=== PATIENT | male | born 1950 | race Caucasian/White ===

== ENCOUNTER → 2016-06-02 | Outpatient (CLI) | payer MEDICARE ==
[2014-03-31 04:50] VITALS: BP 147/94
--- NOTE | 2016-06-02 09:31 | KCIC ---
PROCEDURE: Right lower extremity venous Doppler ultrasound. HISTORY Right lower extremity pain, swelling, and cellulitis. COMPARISON None. TECHNIQUE Real-time grayscale, color flow, and Doppler spectral waveform analysis of the deep veins of the lower extremity/ies performed. FINDINGS All visualized vein segments demonstrate normal compressibility and augmentation and color flow. Color flow seen within calf veins. IMPRESSION No evidence of right lower extremity deep vein thrombosis. Electronically signed by: Parker Zapata MD (Jun 02, 2016 09:29:40)
== END | disposition home or self-care (01) ==
LOC: KCIC US 08:48
PROVIDERS: ATTEND Family Medicine
DX: M79.604 Pain in right leg (principal); M79.89 Other specified soft tissue disorders
CPT/HCPCS: 93971

== ENCOUNTER 2016-06-23 09:26 | Emergency (ER) | payer MEDICARE ==
[~2016-06-23] VITALS: Ht 185.4 cm; Wt 113.4 kg
[2016-06-23] MEDS ORDERED: MORPHINE SULFATE 4 MG/ML DISP.SYRIN. IV/SQ PRN (10:30)
[2016-06-23 10:35] LABS: BASO # 0.1 x10^3/uL (0.0-0.2); BASO % 1 % (0-3); EOS % 2 % (0-3); HEMATOCRIT 40.8 % (39.0-53.0); HEMOGLOBIN 13.5 g/dL (13.0-17.5); LYMPH # 2.4 x10^3/uL (1.0-4.8); LYMPH % 22 % (24-48); MEAN CORPUSCULAR HEMOGLOBIN 29 pg (25-35); MEAN CORPUSCULAR HGB CONC 33 g/dL (31-37); MEAN CORPUSCULAR VOLUME 89 fL (79-100); MONO % 9 % (0-9); NEUT % 66 % (31-73); PLATELET COUNT 268 x10^3/uL (140-400); RED BLOOD COUNT 4.59 x10^6/uL (4.30-5.70); RED CELL DISTRIBUTION WIDTH 15.5 % (11.5-14.5)
[2016-06-23 10:39] VITALS: BP 110/68
--- NOTE | 2016-06-23 10:41 | EKG ---
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 QRS(T) CONTOUR ABNORMALITY CONSISTENT WITH INFERIOR INFARCT PROBABLY OLD ST ABNORMALITY, POSSIBLE HIGH LATERAL SUBENDOCARDIAL INJURY Electronically Signed On 06-23-2016 20:00:30 CDT by Jeanette Myers
[2016-06-23 10:47] LABS: PROTHROMBIN TIME PATIENT 12.7 SEC (11.7-14.0)
--- NOTE | 2016-06-23 10:48 | PHYS DOC ---
Past Medical History Past Medical History: High Cholesterol, Heart Disease, Hypertension, [place] Past Surgical History: Angioplasty Additional Past Surgical Histo: CARDIAC STENT Additional Information: quit 2012 Alcohol Use: None Drug Use: None Adult General Chief Complaint Chief Complaint: LOWER EXTREMITY SWELLING [facility] HPI Patient is a 66 year old male who presents with right lower extremity swelling for 6 days. He has edema up to the level of the knee. He denies any injury to the leg. He has had intermittent swelling in the right leg over the last year, progressively worsening. He denies any fever, chest pain, or shortness of breath. He had an ultrasound performed at this facility on 06/02/16 that was negative for DVT. He saw his orthopedist, Dr. Johnson, one week ago. They aspirated fluid from the right hip and injected cortisone into the joint. His PCP is Dr. Dorcas Ojeda. Review of Systems Review of Systems Constitutional: Denies fever or chills. [] Respiratory: Denies cough or shortness of breath. [] Cardiovascular: Denies chest pain, palpitations. Reports RLE edema. GI: Denies abdominal pain, nausea, vomiting, bloody stools or diarrhea. [] : Denies dysuria, hematuria or urinary frequency. [] Musculoskeletal: Denies back pain or joint pain. Reports right leg pain. Integument: Denies rash or skin lesions. [] Neurologic: Denies headache, focal weakness or sensory changes. [] Endocrine: Denies polyuria or polydipsia. [] Psych: Denies anxiety or depression. [] All systems reviewed and negative unless otherwise stated in the HPI. Current Medications Current Medications Current Medications Medications (Trade) Dose Ordered Sig/Sandee Start Time Stop Time Status Last Admin Dose Admin Morphine Sulfate 4 mg PRN Q15MIN PRN 06/23/16 10:30 06/24/16 10:29 Allergies Allergies Allergies Coded Allergies Type Severity Reaction Last Updated Verified lisinopril Allergy Severe swelling 06/23/16 Yes shellfish derived Allergy Severe swelling 06/23/16 Yes strawberry Allergy Severe swelling 06/23/16 Yes tomato Allergy Severe swelling 06/23/16 Yes Physical Exam Physical Exam Constitutional: Well developed, well nourished, no acute distress, non-toxic appearance. [] HENT: Normocephalic, atraumatic, oropharynx moist. [] Eyes: PERRLA, EOMI, conjunctiva normal, no discharge. [] Neck: Normal range of motion, no tenderness, supple, no stridor. [] Cardiovascular: Heart rate regular rhythm, no murmur. [] Lungs & Thorax: Bilateral breath sounds clear to auscultation without wheezes, rales, or rhonchi. [] Abdomen: Bowel sounds normal, soft, no tenderness, no masses, no pulsatile masses. [] Skin: Warm, dry, no erythema, no rash. There is no erythema or warmth of the right lower extremity. Chronic venous stasis staining of the skin. Extremities: Right hip, knee, calf, ankle, and foot tenderness, ROM intact, 2+ pitting edema up to and including the knee. 2+ pedal pulses bilaterally. Less than 2 second capillary refill in the toes. Light touch sensation intact distally. Neurologic: Alert and oriented X 3, normal motor function, normal sensory function, no focal deficits noted. [] Psychologic: Affect normal, judgement normal, mood normal. [] Current Patient Data Vital Signs Vital Signs Date Time Temp Pulse Resp B/P Pulse Ox O2 Delivery O2 Flow Rate FiO2 06/23/16 09:39 98.5 71 20 108/64 99 Room Air 98.5 Lab Values Laboratory Tests Test 06/23/16 10:00 White Blood Count 11.0x10^3/uL (4.0-11.0) Red Blood Count 4.59x10^6/uL (4.30-5.70) Hemoglobin 13.5g/dL (13.0-17.5) Hematocrit 40.8% (39.0-53.0) Mean Corpuscular Volume 89fL (79-100) Mean Corpuscular Hemoglobin 29pg (25-35) Mean Corpuscular Hemoglobin Concent 33g/dL (31-37) Red Cell Distribution Width 15.5% (11.5-14.5) H Platelet Count 268x10^3/uL (140-400) Neutrophils (%) (Auto) 66% (31-73) Lymphocytes (%) (Auto) 22% (24-48) L Monocytes (%) (Auto) 9% (0-9) Eosinophils (%) (Auto) 2% (0-3) Basophils (%) (Auto) 1% (0-3) Neutrophils # (Auto) 7.3x10^3uL (1.8-7.7) Lymphocytes # (Auto) 2.4x10^3/uL (1.0-4.8) Monocytes # (Auto) 1.0x10^3/uL (0.0-1.1) Eosinophils # (Auto) 0.3x10^3/uL (0.0-0.7) Basophils # (Auto) 0.1x10^3/uL (0.0-0.2) Prothrombin Time 12.7SEC (11.7-14.0) Prothrombin Time INR 1.0 (0.8-1.1) Sodium Level 142mmol/L (136-145) Potassium Level 3.8mmol/L (3.5-5.1) Chloride Level 105mmol/L (98-107) Carbon Dioxide Level 28mmol/L (21-32) Anion Gap 9 (6-14) Blood Urea Nitrogen 24mg/dL (8-26) Creatinine 1.3mg/dL (0.7-1.3) Estimated GFR (Cockcroft-Gault) 55.1 Glucose Level 108mg/dL (70-99) H Calcium Level 8.8mg/dL (8.5-10.1) Magnesium Level 1.7mg/dL (1.8-2.4) L Total Bilirubin 0.3mg/dL (0.2-1.0) Direct Bilirubin 0.1mg/dL (0.0-0.2) Aspartate Amino Transferase (AST) 14U/L (15-37) L Alanine Aminotransferase (ALT) 37U/L (16-63) Alkaline Phosphatase 83U/L (46-116) Creatine Kinase 65U/L (39-308) Creatine Kinase MB (Mass) 1.9ng/mL (0.0-3.6) Creatine Kinase MB Relative Index 2.9% (0-4) Troponin I Quantitative < 0.017ng/mL (0.000-0.055) WZ-Goe-F-Type Natriuretic Peptide 362pg/mL (0-124) H Total Protein 6.4g/dL (6.4-8.2) Albumin 2.9g/dL (3.4-5.0) L Laboratory Tests 06/23/16 10:00 Laboratory Tests 06/23/16 10:00 EKG EKG EKG at 1034. Heart rate 67 bpm. Sinus rhythm with PVCs. There is no STEMI, as interpreted by Dr. Brandon. Radiology/Procedures Radiology/Procedures REASON: RLE edema PROCEDURE: VENOUS LOWER EXTREMITY RIGHT EXAM: Right lower extremity venous Doppler sonogram. HISTORY: Swelling. TECHNIQUE: Grayscale and color Doppler sonographic imaging of the right lower extremity veins with spectral waveform analysis was performed. COMPARISON: None. FINDINGS: There is normal color flow, normal compressibility and there are normal spectral waveforms within the right lower extremity veins. IMPRESSION: No Doppler evidence of right lower extremity venous thrombosis. REASON: RLE edema, X A FEW DAYS PROCEDURE: PORTABLE CHEST 1V Portable chest, 06/23/2016: History: Leg swelling Comparison is made to a study from 12/14/2015. The heart size and pulmonary vascularity are normal. There is calcific plaquing of aorta. There is a hazy opacity in the left base. A less prominent linear opacity was seen in this region on 12/14/2015. The lungs are otherwise clear. There is no evidence of pleural fluid. A coarse calcification is again noted adjacent to the coracoid process of the left scapula IMPRESSION: Mild left basilar atelectasis/infiltrate. There may be a component of scarring. Imaging follow-up is suggested to exclude an underlying neoplasm. Course & Med Decision Making Course & Med Decision Making Pertinent Labs and Imaging studies reviewed. (See chart for details) Patient presents with RLE edema for approximately one week with history of the same intermittently over the last year. He has been receiving cortisone injections as well as fluid aspiration from the right hip for arthritis. On exam , there is 2+ pitting edema of the right lower extremity. He is neurovascularly intact distally. X-ray does not show any vascular congestion in the lungs. Ultrasound does not show DVT. His BNP is mildly elevated. There are no other significant laboratory abnormalities. His swelling is likely due to a combination of factors, including mild CHF, venous stasis, and dependent edema from his hip. He is instructed to continue to take his hydrochlorothiazide. He is discharged home with prescription for hydrocodone for pain. He is instructed to wear compression stockings to help with the swelling. Return precautions were discussed. He verbalizes understanding and agrees with plan. Dragon Disclaimer Dragon Disclaimer This electronic medical record was generated, in whole or in part, using a voice recognition dictation system. Departure Departure Impression: Primary Impression: Lower extremity edema Disposition: 01 HOME, SELF-CARE Condition: STABLE Referrals: DORCAS OJEDA MD (PCP) Patient Instructions: Peripheral Edema Additional Instructions: Your ultrasound did not show any blood clots. You have a mild heart failure, which is likely contributing to the swelling. Please continue to take your hydrochlorothiazide, which is a diuretic, or water pill. Please wear compression stockings to help move the fluid out of the lower leg. Please take the prescribed pain medication as directed. Do not drive or operate heavy machinery while taking pain medication. Please follow-up with your primary care doctor within the next 2-3 days, sooner if concerns. Return to the emergency department if you have any new or concerning symptoms. Scripts Hydrocodone/Apap 5-325 ([place] 5-325 Tablet)1 Each Tablet1 Tab PO PRN Q6HRS PRN PAIN #20 TAB Prov:FER DAVIS 06/23/16 Problem Qualifiers Primary Impression: Lower extremity edema Laterality: right Qualified Code: R60.0 - Localized edema FER DAVIS Jun 23, 2016 10:48
[2016-06-23 10:50] LABS: CALCIUM 8.8 mg/dL (8.5-10.1); CREATININE 1.3 mg/dL (0.7-1.3); GFR 55.1; POTASSIUM 3.8 mmol/L (3.5-5.1)
[2016-06-23 10:55] LABS: ALBUMIN 2.9 g/dL (3.4-5.0); DIRECT BILIRUBIN 0.1 mg/dL (0.0-0.2); MAGNESIUM 1.7 mg/dL (1.8-2.4); TOTAL BILIRUBIN 0.3 mg/dL (0.2-1.0); TOTAL PROTEIN 6.4 g/dL (6.4-8.2)
--- NOTE | 2016-06-23 10:59 | RAD ---
EXAM: Right lower extremity venous Doppler sonogram. HISTORY: Swelling. TECHNIQUE: Grayscale and color Doppler sonographic imaging of the right lower extremity veins with spectral waveform analysis was performed. COMPARISON: None. FINDINGS: There is normal color flow, normal compressibility and there are normal spectral waveforms within the right lower extremity veins. IMPRESSION: No Doppler evidence of right lower extremity venous thrombosis.
--- NOTE | 2016-06-23 10:59 | RAD ---
Portable chest, 06/23/2016: History: Leg swelling Comparison is made to a study from 12/14/2015. The heart size and pulmonary vascularity are normal. There is calcific plaquing of aorta. There is a hazy opacity in the left base. A less prominent linear opacity was seen in this region on 12/14/2015. The lungs are otherwise clear. There is no evidence of pleural fluid. A coarse calcification is again noted adjacent to the coracoid process of the left scapula IMPRESSION: Mild left basilar atelectasis/infiltrate. There may be a component of scarring. Imaging follow-up is suggested to exclude an underlying neoplasm.
[2016-06-23 11:04] LABS: CKMB INDEX 2.9 % (0-4); CKMB MASS 1.9 ng/mL (0.0-3.6)
[2016-06-23] MEDS ORDERED: HYDR-971 PO (11:18)
== END 2016-06-23 11:30 | disposition home or self-care (01) ==
LOC: ER 09:26
DX: R60.0 Localized edema (principal); I11.9 Hypertensive heart disease without heart failure; E78.00 Pure hypercholesterolemia, unspecified; I25.2 Old myocardial infarction; Z95.5 Presence of coronary angioplasty implant and graft; Z87.891 Personal history of nicotine dependence; Z91.013 Allergy to seafood; Z91.018 Allergy to other foods; Z88.8 Allergy status to other drugs, medicaments and biological substances
CPT/HCPCS: 36415; 71010; 80048; 80076; 82553; 83735; 83880; 84484; 85027; 85610; 93005; 93971; 96374; 99285; J2270

== ENCOUNTER → 2016-07-07 | Outpatient (CLI) | payer MEDICARE ==
[2016-06-23 10:39] VITALS: BP 110/68
[~2016-07-07] MED LIST: HYDR-971 PO; IOHEXOL 300 MG/ML 75 ML VIAL IV ONE
--- NOTE | 2016-07-07 11:18 | RAD ---
CT of the abdomen and pelvis with contrast, 07/07/2016: History: Right lower extremity swelling Multidetector CT imaging was performed following oral and IV administration of contrast. The delay time was lengthened in an attempt to facilitate opacification of the venous structures. There is mild linear atelectasis and/or scarring in the left lung base. Coronary artery calcifications are evident. No hepatic abnormality is seen. The gallbladder is unremarkable. The pancreas shows no abnormality. The spleen is of normal size. There is moderate bilateral renal cortical scarring. The kidneys show no evidence of obstruction or mass. The adrenal glands are unremarkable. There is moderate calcific plaquing of the abdominal aorta and its branches without evidence of aneurysm. No iliac or inguinal adenopathy is seen. The iliac veins were not optimally opacified. They are symmetric in appearance. No iliac or inferior vena caval abnormality is seen. No pelvic mass compressing these structures is identified. The prostate gland is at the upper limits of normal in size. A few small sigmoid diverticula are present. The bowel loops are not dilated. No free fluid or free air is evident in the abdomen or pelvis. There are severe degenerative changes at both hip joints. Moderate multilevel hypertrophic degenerative changes are present in the spine. There is associated spinal stenosis and foraminal encroachment at multiple levels in the lower lumbar spine. IMPRESSION: 1. Mild sigmoid diverticulosis. 2. Moderate calcific plaquing of the aorta and its branches including the coronary arteries. 3. No acute abdominal or pelvic abnormality is detected. 4. Severe degenerative change at both hips and in the lower lumbar spine. PQRS Compliance Statement: One or more of the following individualized dose reduction techniques were utilized for this examination: 1. Automated exposure control 2. Adjustment of the mA and/or kV according to patient size 3. Use of iterative reconstruction technique
== END | disposition home or self-care (01) ==
LOC: CT 07:58
PROVIDERS: ATTEND Internal Medicine Cardiovascular Disease
DX: K57.30 Diverticulosis of large intestine without perforation or abscess without bleeding (principal); I25.10 Atherosclerotic heart disease of native coronary artery without angina pectoris; M47.896 Other spondylosis, lumbar region; M51.36 Other intervertebral disc degeneration, lumbar region
CPT/HCPCS: 74177; Q9967

== ENCOUNTER 2017-04-05 09:21 | Inpatient (IN) | payer MEDICARE ==
[2017-04-05] MEDS ORDERED: NITROGLYCERIN SUBLINGUAL 0.4 MG BOTTLE OF 25. SL (09:30)
[2017-04-05 09:40] LABS: ADD MAN DIFF? NO
[2017-04-05 09:42] LABS: BASO # 0.1 x10^3/uL (0.0-0.2); BASO % 1 % (0-3); EOS # 0.2 x10^3/uL (0.0-0.7); EOS % 1 % (0-3); HEMATOCRIT 50.4 % (39.0-53.0); HEMOGLOBIN 16.5 g/dL (13.0-17.5); LYMPH # 3.3 x10^3/uL (1.0-4.8); LYMPH % 25 % (24-48); MEAN CORPUSCULAR HEMOGLOBIN 30 pg (25-35); MEAN CORPUSCULAR HGB CONC 33 g/dL (31-37); MEAN CORPUSCULAR VOLUME 90 fL (79-100); MONO # 1.1 x10^3/uL (0.0-1.1); MONO % 8 % (0-9); NEUT # 8.8 x10^3uL (1.8-7.7); NEUT % 65 % (31-73); PLATELET COUNT 265 x10^3/uL (140-400); RED BLOOD COUNT 5.59 x10^6/uL (4.30-5.70); RED CELL DISTRIBUTION WIDTH 16.3 % (11.5-14.5); WHITE BLOOD COUNT 13.5 x10^3/uL (4.0-11.0)
[2017-04-05 09:50] LABS: PROTHROMBIN TIME PATIENT 12.8 SEC (11.7-14.0)
[2017-04-05 10:00] LABS: ANION GAP 11 (6-14); BLOOD UREA NITROGEN 29 mg/dL (8-26); CALCIUM 9.2 mg/dL (8.5-10.1); CARBON DIOXIDE 28 mmol/L (21-32); CHLORIDE 97 mmol/L (98-107); CREATININE 1.6 mg/dL (0.7-1.3); GFR 43.2; GLUCOSE 176 mg/dL (70-99); POTASSIUM 3.7 mmol/L (3.5-5.1); SODIUM 136 mmol/L (136-145)
[2017-04-05 10:03] LABS: TROPONINI < 0.017 ng/mL (0.000-0.055)
[2017-04-05 10:05] LABS: ALBUMIN 3.6 g/dL (3.4-5.0); ALK PHOS 87 U/L (46-116); ALT (SGPT) 57 U/L (16-63); AST (SGOT) 23 U/L (15-37); DIRECT BILIRUBIN 0.2 mg/dL (0.0-0.2); LIPASE 178 U/L (73-393); MAGNESIUM 1.9 mg/dL (1.8-2.4); TOTAL BILIRUBIN 0.5 mg/dL (0.2-1.0); TOTAL PROTEIN 8.4 g/dL (6.4-8.2)
[2017-04-05 10:09] LABS: CKMB MASS 0.6 ng/mL (0.0-3.6); CREATINE KINASE 47 U/L (39-308)
[2017-04-05 10:09] LABS: NT-PRO BNP 84 pg/mL (0-124)
[2017-04-05] MEDS: ASPIRIN CHEWABLE 81 MG TABLET. PO (10:19)
[2017-04-05] MEDS: MORPHINE SULFATE 2 MG/ML DISP.SYRIN. IV/SQ ×2 (10:20→16:34)
[2017-04-05] MEDS ORDERED: ONDANSETRON PF 4 MG/2 ML VIAL. IV (13:00)
[2017-04-05 19:54] LABS: TROPONINI < 0.017 ng/mL (0.000-0.055)
[2017-04-05] MEDS: CARVEDILOL 12.5 MG TABLET. PO (20:41)
[2017-04-05] MEDS: ATORVASTATIN CALCIUM 10 MG TABLET. PO (20:41)
[2017-04-05] MEDS: HYDROcodone/APAP 5/325MG 1 TAB TABLET PO (20:42)
[2017-04-06] MEDS: ACETAMINOPHEN 325 MG TABLET. PO (01:10)
[2017-04-06] MEDS: MORPHINE SULFATE 2 MG/ML DISP.SYRIN. IV ×2 (01:11→08:32)
[2017-04-06 01:19] LABS: ADD MAN DIFF? NO
[2017-04-06 01:49] LABS: TROPONINI < 0.017 ng/mL (0.000-0.055)
[2017-04-06 04:15] LABS: BASO # 0.1 x10^3/uL (0.0-0.2); BASO % 1 % (0-3); EOS # 0.2 x10^3/uL (0.0-0.7); EOS % 1 % (0-3); HEMATOCRIT 46.8 % (39.0-53.0); HEMOGLOBIN 15.3 g/dL (13.0-17.5); LYMPH # 3.5 x10^3/uL (1.0-4.8); LYMPH % 25 % (24-48); MEAN CORPUSCULAR HEMOGLOBIN 29 pg (25-35); MEAN CORPUSCULAR HGB CONC 33 g/dL (31-37); MEAN CORPUSCULAR VOLUME 90 fL (79-100); MONO # 1.1 x10^3/uL (0.0-1.1); MONO % 8 % (0-9); NEUT # 9.1 x10^3uL (1.8-7.7); NEUT % 65 % (31-73); PLATELET COUNT 247 x10^3/uL (140-400); RED BLOOD COUNT 5.19 x10^6/uL (4.30-5.70); RED CELL DISTRIBUTION WIDTH 16.5 % (11.5-14.5)
[2017-04-06 05:31] LABS: ANION GAP 12 (6-14); BLOOD UREA NITROGEN 31 mg/dL (8-26); CALCIUM 8.6 mg/dL (8.5-10.1); CARBON DIOXIDE 26 mmol/L (21-32); CHLORIDE 97 mmol/L (98-107); CREATININE 1.7 mg/dL (0.7-1.3); GFR 40.3; GLUCOSE 140 mg/dL (70-99); POTASSIUM 3.6 mmol/L (3.5-5.1); SODIUM 135 mmol/L (136-145)
[2017-04-06] MEDS: HYDROcodone/APAP 5/325MG 1 TAB TABLET PO ×3 (05:59→17:43)
[2017-04-06] MEDS: CARVEDILOL 12.5 MG TABLET. PO ×2 (08:00→17:22)
[2017-04-06] MEDS: ALLOPURINOL 300 MG TABLET. PO ×2 (09:00→20:34)
[2017-04-06] MEDS: hydroCHLOROthiazide 25 MG TABLET PO (09:00)
[2017-04-06] MEDS: ISOSORBIDE MONONITRATE ER 30 MG TAB.ER.24H PO (09:00)
[2017-04-06] MEDS: amLODIPine BESYLATE 10 MG TABLET PO (09:00)
[2017-04-06] MEDS: IV NORMAL SALINE 1000ML BAG 1,000 ML IV (10:28)
[2017-04-06] MEDS: ASPIRIN CHEWABLE 81 MG TABLET. PO (10:53)
[2017-04-06] MEDS: BUPIVACAINE MPF 0.25% 10 ML VIAL. IJ (13:30)
[2017-04-06] MEDS: methylPREDNISolone ACETATE 40 MG/ML VIAL. INT ART (13:30)
[2017-04-06] MEDS: ATORVASTATIN CALCIUM 10 MG TABLET. PO (20:34)
[2017-04-07] MEDS: HYDROcodone/APAP 5/325MG 1 TAB TABLET PO (03:00)
[2017-04-07 04:33] LABS: BASO % 0 % (0-3); EOS % 0 % (0-3); HEMATOCRIT 49.2 % (39.0-53.0); HEMOGLOBIN 16.3 g/dL (13.0-17.5); LYMPH # 1.7 x10^3/uL (1.0-4.8); LYMPH % 12 % (24-48); MEAN CORPUSCULAR HEMOGLOBIN 30 pg (25-35); MEAN CORPUSCULAR HGB CONC 33 g/dL (31-37); MEAN CORPUSCULAR VOLUME 91 fL (79-100); MONO # 0.4 x10^3/uL (0.0-1.1); MONO % 3 % (0-9); NEUT # 12.2 x10^3uL (1.8-7.7); NEUT % 85 % (31-73); PLATELET COUNT 268 x10^3/uL (140-400); RED BLOOD COUNT 5.41 x10^6/uL (4.30-5.70); RED CELL DISTRIBUTION WIDTH 16.3 % (11.5-14.5); WHITE BLOOD COUNT 14.3 x10^3/uL (4.0-11.0)
[2017-04-07 04:35] LABS: ADD MAN DIFF? YES
[2017-04-07 07:26] LABS: ANION GAP 13 (6-14); BLOOD UREA NITROGEN 27 mg/dL (8-26); CALCIUM 9.3 mg/dL (8.5-10.1); CARBON DIOXIDE 27 mmol/L (21-32); CHLORIDE 99 mmol/L (98-107); CHOLESTEROL 140 mg/dL (0-200); CREATININE 1.4 mg/dL (0.7-1.3); GFR 50.4; GLUCOSE 235 mg/dL (70-99); HDLC 36 mg/dL (40-60); LDLC 76 mg/dL (0-100); NON-HDL CHOLESTEROL 104 mg/dL (0-129); POTASSIUM 4.1 mmol/L (3.5-5.1); SODIUM 139 mmol/L (136-145); TRIGLYCERIDES 142 mg/dL (0-150); VLDLC 28 mg/dL (0-40)
[2017-04-07 07:27] LABS: CHOLESTEROL/HDL RATIO 3.9
[2017-04-07 07:38] LABS: % BANDS 1 % (0-9); % LYMPHS 8 % (24-48); % MONOS 2 % (0-10); % SEGS 89 % (35-66)
[2017-04-07 07:39] LABS: PLT ESTIMATE ADEQUATE (ADEQUATE)
[2017-04-07] MEDS: hydroCHLOROthiazide 25 MG TABLET PO (08:56)
[2017-04-07] MEDS: ASPIRIN CHEWABLE 81 MG TABLET. PO (08:56)
[2017-04-07] MEDS: CARVEDILOL 12.5 MG TABLET. PO (08:57)
[2017-04-07] MEDS: amLODIPine BESYLATE 10 MG TABLET PO (08:57)
[2017-04-07] MEDS: ISOSORBIDE MONONITRATE ER 30 MG TAB.ER.24H PO (08:58)
== END 2017-04-07 16:54 | disposition home or self-care (01) | DRG 312 ==
LOC: ER 09:21 → ED HOLD 12:30 → 5 NORTH 15:28
PROC: 3E0U33Z Introduction of Anti-inflammatory into Joints, Percutaneous Approach (ICD-10-PCS; principal; 2017-04-06)
PROC: 3E0U3BZ Introduction of Anesthetic Agent into Joints, Percutaneous Approach (ICD-10-PCS; 2017-04-06)
DX: R55 Syncope and collapse (principal); N17.9 Acute kidney failure, unspecified; E86.0 Dehydration; K52.9 Noninfective gastroenteritis and colitis, unspecified; R07.89 Other chest pain; I25.10 Atherosclerotic heart disease of native coronary artery without angina pectoris; M25.461 Effusion, right knee; J44.9 Chronic obstructive pulmonary disease, unspecified; E66.9 Obesity, unspecified; W18.39XA Other fall on same level, initial encounter; N18.3 Chronic kidney disease, stage 3 (moderate); Z95.5 Presence of coronary angioplasty implant and graft; I12.9 Hypertensive chronic kidney disease with stage 1 through stage 4 chronic kidney disease, or unspecified chronic kidney disease; M54.2 Cervicalgia; R07.81 Pleurodynia; Z87.891 Personal history of nicotine dependence; E78.5 Hyperlipidemia, unspecified; Z96.643 Presence of artificial hip joint, bilateral; Z96.653 Presence of artificial knee joint, bilateral; M17.11 Unilateral primary osteoarthritis, right knee; M47.812 Spondylosis without myelopathy or radiculopathy, cervical region; M48.00 Spinal stenosis, site unspecified; R32 Unspecified urinary incontinence; S20.219A Contusion of unspecified front wall of thorax, initial encounter; Z68.32 Body mass index [BMI] 32.0-32.9, adult; Z91.013 Allergy to seafood; Z88.8 Allergy status to other drugs, medicaments and biological substances; Z91.018 Allergy to other foods; Y93.89 Activity, other specified; Y92.098 Other place in other non-institutional residence as the place of occurrence of the external cause; Y99.8 Other external cause status; Z82.49 Family history of ischemic heart disease and other diseases of the circulatory system; Z68.31 Body mass index [BMI] 31.0-31.9, adult
CPT/HCPCS: 36415; 70450; 71045; 71250; 72125; 73560; 80048; 80061; 80076; 82553; 83690; 83735; 83880; 84484; 85007; 85025; 85610; 93005; 93306; 97162-GP; 99285-25; J1030; J2270; J3490; J7030

== ENCOUNTER → 2017-06-30 | Outpatient (CLI) | payer MEDICARE ==
[~2017-06-30] MED LIST changes: -HYDR-971 PO; -IOHEXOL 300 MG/ML 75 ML VIAL IV ONE; +REGADENOSON 0.4 MG/5 ML DISP.SYRIN. IV
== END | disposition home or self-care (01) ==
LOC: NM 07:26
DX: I25.10 Atherosclerotic heart disease of native coronary artery without angina pectoris (principal); I12.9 Hypertensive chronic kidney disease with stage 1 through stage 4 chronic kidney disease, or unspecified chronic kidney disease; N18.3 Chronic kidney disease, stage 3 (moderate); J44.9 Chronic obstructive pulmonary disease, unspecified; E78.5 Hyperlipidemia, unspecified; E78.00 Pure hypercholesterolemia, unspecified
CPT/HCPCS: 96374; A9500

== ENCOUNTER 2017-07-14 06:02 | Inpatient (IN) | payer MEDICARE ==
[2017-07-14] MEDS ORDERED: PROTAMINE 50 MG/5 ML VIAL. IV (06:08)
[2017-07-14] MEDS ORDERED: LIDOCAINE 1% 20 ML VIAL. (06:44)
[2017-07-14] MEDS: IV RINGERS,LACTATED 1000ML 1,000 ML IV (06:54)
[2017-07-14] MEDS ORDERED: LIDOCAINE 1% PF 2 ML VIAL. ID (07:00)
[2017-07-14] MEDS ORDERED: fentaNYL PF VIAL 100 MCG/2 ML VIAL IV (07:00)
[2017-07-14] MEDS ORDERED: MORPHINE SULFATE 4 MG/ML DISP.SYRIN. IV ×2 (07:00→13:30)
[2017-07-14] MEDS ORDERED: PROCHLORPERAZINE 10 MG/2 ML VIAL. IV (07:00)
[2017-07-14] MEDS ORDERED: BUPIVACAINE MPF 0.25% 30 ML VIAL. (07:13)
[2017-07-14] MEDS ORDERED: MIDAZOLAM HCL/PF 2 MG/2 ML VIAL. (07:13)
[2017-07-14] MEDS ORDERED: LIDOCAINE 2% 20 ML VIAL. (07:13)
[2017-07-14] MEDS ORDERED: fentaNYL PF VIAL 100 MCG/2 ML VIAL ×2 (07:16→15:04)
[2017-07-14] MEDS ORDERED: HEPARIN for IV BOLUS 10,000 UNIT/10 ML VIAL. ×2 (07:16→14:07)
[2017-07-14] MEDS: HEPARIN SODIUM 5,000 UNIT in IV RINGERS,LACTATED 500ML 500 ML IRR (07:55)
[2017-07-14] MEDS: LIDOCAINE 1% 20 ML VIAL. (07:55)
[2017-07-14] MEDS ORDERED: GLYCOPYRROLATE 1 MG/5 ML VIAL. (08:03)
[2017-07-14] MEDS: SURGICEL FIBRILLAR 1X2 EACH. ×2 (08:38→15:42)
[2017-07-14] MEDS ORDERED: ONDANSETRON PF 4 MG/2 ML VIAL. IV (09:00)
[2017-07-14] MEDS ORDERED: 0.9 % SODIUM CHLORIDE 10 ML DISP.SYRIN. IV (09:00)
[2017-07-14] MEDS: HYDROcodone/APAP 5/325MG 1 TAB TABLET PO ×3 (10:29→19:29)
[2017-07-14] MEDS: IV 1/2 NORMAL SALINE 1,000 ML IV (10:31)
[2017-07-14] MEDS: LABETALOL 20 MG/4 ML DISP.SYRIN. IVP (11:00)
[2017-07-14] MEDS: PROTAMINE 50 MG/5 ML VIAL. IV (11:17)
[2017-07-14] MEDS: hydrALAZINE 20 MG/ML VIAL. IVP (12:04)
[2017-07-14] MEDS: ONDANSETRON PF 4 MG/2 ML VIAL. IV (12:24)
[2017-07-14] MEDS: MORPHINE SULFATE 4 MG/ML DISP.SYRIN. IV (13:53)
[2017-07-14] MEDS ORDERED: LIDOCAINE 1% PF 30 ML VIAL. (14:07)
[2017-07-14] MEDS ORDERED: PROPOFOL 20 ML IV (15:03)
[2017-07-14 15:04] LABS: HEMATOCRIT 45.8 % (39.0-53.0); HEMOGLOBIN 15.2 g/dL (13.0-17.5); MEAN CORPUSCULAR HEMOGLOBIN 30 pg (25-35); MEAN CORPUSCULAR HGB CONC 33 g/dL (31-37); MEAN CORPUSCULAR VOLUME 91 fL (79-100); PLATELET COUNT 258 x10^3/uL (140-400); RED BLOOD COUNT 5.03 x10^6/uL (4.30-5.70); RED CELL DISTRIBUTION WIDTH 14.8 % (11.5-14.5); WHITE BLOOD COUNT 18.8 x10^3/uL (4.0-11.0)
[2017-07-14 15:14] LABS: ANION GAP 13 (6-14); BLOOD UREA NITROGEN 33 mg/dL (8-26); CALCIUM 9.1 mg/dL (8.5-10.1); CARBON DIOXIDE 24 mmol/L (21-32); CHLORIDE 102 mmol/L (98-107); CREATININE 1.6 mg/dL (0.7-1.3); GFR 43.2; GLUCOSE 140 mg/dL (70-99); POTASSIUM 3.8 mmol/L (3.5-5.1); SODIUM 139 mmol/L (136-145)
[2017-07-14 15:23] LABS: INR 1.1 (0.8-1.1); PARTIAL THROMBOPLASTIN TIME 28 SEC (24-38); PROTHROMBIN TIME PATIENT 13.6 SEC (11.7-14.0)
[2017-07-14] MEDS ORDERED: PHENYLEPHRINE in 0.9% NACL PF 1 MG/10 ML SYRINGE. IV (15:48)
[2017-07-14] MEDS ORDERED: ONDANSETRON PF 4 MG/2 ML VIAL. (15:48)
[2017-07-14] MEDS ORDERED: FAMOTIDINE 20 MG/2 ML VIAL (15:49)
[2017-07-14] MEDS: fentaNYL PF VIAL 100 MCG/2 ML VIAL IV ×2 (16:54→18:02)
[2017-07-14] MEDS: ALLOPURINOL 300 MG TABLET. PO (19:30)
[2017-07-14] MEDS: CARVEDILOL 12.5 MG TABLET. PO (19:30)
[2017-07-14] MEDS: ATORVASTATIN CALCIUM 10 MG TABLET. PO (21:01)
[2017-07-15] MEDS: HYDROcodone/APAP 5/325MG 1 TAB TABLET PO ×4 (00:54→19:08)
[2017-07-15] MEDS: CLOPIDOGREL BISULFATE 75 MG TABLET PO (07:34)
[2017-07-15] MEDS: ASPIRIN ENTERIC COATED 81 MG TABLET.DR. PO (07:36)
[2017-07-15] MEDS: CARVEDILOL 12.5 MG TABLET. PO ×2 (08:00→17:06)
[2017-07-15] MEDS: hydroCHLOROthiazide 25 MG TABLET PO (09:00)
[2017-07-15] MEDS: amLODIPine BESYLATE 10 MG TABLET PO (09:00)
[2017-07-15] MEDS: ISOSORBIDE MONONITRATE ER 30 MG TAB.ER.24H PO (09:00)
[2017-07-15] MEDS: ALLOPURINOL 300 MG TABLET. PO (17:06)
[2017-07-15] MEDS: ATORVASTATIN CALCIUM 10 MG TABLET. PO (21:25)
[2017-07-15 22:21] LABS: MRSA BY PCR Negative (Negative)
[2017-07-16] MEDS: HYDROcodone/APAP 5/325MG 1 TAB TABLET PO (01:07)
[2017-07-16] MEDS: CLOPIDOGREL BISULFATE 75 MG TABLET PO (08:54)
[2017-07-16] MEDS: ISOSORBIDE MONONITRATE ER 30 MG TAB.ER.24H PO (08:55)
[2017-07-16] MEDS: CARVEDILOL 12.5 MG TABLET. PO (08:55)
[2017-07-16] MEDS: amLODIPine BESYLATE 10 MG TABLET PO (08:55)
[2017-07-16] MEDS: ASPIRIN ENTERIC COATED 81 MG TABLET.DR. PO (08:55)
[2017-07-16] MEDS: hydroCHLOROthiazide 25 MG TABLET PO (08:55)
== END 2017-07-16 15:04 | disposition home or self-care (01) | DRG 37 ==
LOC: OPSVCIP 06:02 → 2 NORTH 07-15 11:25 → 1 WEST ICU 13:13
PROC: 03CK0ZZ Extirpation of Matter from Right Internal Carotid Artery, Open Approach (ICD-10-PCS; principal; 2017-07-14 07:30)
PROC: 0HC4XZZ Extirpation of Matter from Neck Skin, External Approach (ICD-10-PCS; 2017-07-14 07:30)
DX: I65.21 Occlusion and stenosis of right carotid artery (principal); I63.9 Cerebral infarction, unspecified; E78.00 Pure hypercholesterolemia, unspecified; I10 Essential (primary) hypertension; S10.93XA Contusion of unspecified part of neck, initial encounter; M48.9 Spondylopathy, unspecified; J44.9 Chronic obstructive pulmonary disease, unspecified; I25.10 Atherosclerotic heart disease of native coronary artery without angina pectoris; M10.9 Gout, unspecified; Z96.641 Presence of right artificial hip joint; E78.5 Hyperlipidemia, unspecified; X58.XXXA Exposure to other specified factors, initial encounter; Y93.89 Activity, other specified; Y92.89 Other specified places as the place of occurrence of the external cause; Y99.8 Other external cause status; Z86.73 Personal history of transient ischemic attack (TIA), and cerebral infarction without residual deficits; Z91.013 Allergy to seafood; Z88.8 Allergy status to other drugs, medicaments and biological substances; Z91.018 Allergy to other foods; Z82.49 Family history of ischemic heart disease and other diseases of the circulatory system
CPT/HCPCS: 36415; 80048; 85027; 85610; 85730; 87641; A7015; J0360; J0690; J1644; J2250; J2270; J2370; J2405; J2704; J3010; J3490; J7120; S0028

== ENCOUNTER → 2018-10-06 | Outpatient (CLI) | payer MEDICARE ==
[2017-07-16 08:55] VITALS: BP 138/80
[~2018-10-06] MED LIST changes: +ACET325T9 PO; +ALLO300T PO; +AMLO10TA8 PO; +ASPI-612 PO; +ASPI-630 PO; +ASPI325T8 PO; +CARV12.511 PO; +CLOP75TA PO; +GABA-689 PO; +HYDR-2145 PO; +HYDR-3164 PO; +ISOS60TA2 PO; +PRAV40TA2 PO; -REGADENOSON 0.4 MG/5 ML DISP.SYRIN. IV; +REGADENOSON 0.4 MG/5 ML DISP.SYRIN. IV ONE; +TRAM50TA PO
--- NOTE | 2018-10-06 13:22 | RAD ---
MR#: [id number] Date of Study: 10/06/2018 Ordering Physician: MANSI HART, Referring Physician: FELECIA ELI Tech: RT Regino (R) (N) APPROVED REPORT Test Type: Pharmacological Stress Nurse/Tech: Kristi Mcpherson RN Test Indications: Preop hip replacement/ cardiac clearance Cardiac History: Hypertension,NM 2013, 1 stent Medications: See Electronic Medical Record Medical History: See Electronic Medical Record Resting ECG: SR with BBB Resting Heart Rate: 70 bpm Resting Blood Pressure: 136/74mmHg Pretest Chest Pain: No chest pain Nurse/Tech Notes S1,S2 and lungs slightly diminished in the bases. Consent: The procedure was explained to the patient in lay terms. Informed consent was witnessed. Dong eout was entered into [employer]. History and Stress Test performed by RT Regino (R) (N) Pharm. Details Pharmacologic stress testing was performed using 0.4mg per 5ml of regadenoson given intravenously ove r 7-10 seconds. Stress Symptoms No chest pain or symptoms. POST EXERCISE Reason for Termination: Infusion complete Target HR: No Max HR: 96 bpm Max Blood Pressure: 130/71mmHg Blood Pressure response to exercise: Abnormal blood pressure response during stress. Heart Rate response to exercise: WNL Chest Pain: No. Arrhythmia: No. ST Change: Yes. non diagnostic INTERPRETATION Stress EKG Conclusion: Baseline EKG showed sinus rhythm with old inferior infarct. Non-diagnostic ch anges at peak stress. No arrhythmias. Rest: Stress: Viability: Radiopharm.Tc99m XefbrcccoWk16v Sestamibi Tecl13bMi 33mCi Duration 15min. 15min. Img Date 10/06/2018 10/06/2018 Inj-Img Xxtl75ctx. 60min. Rest Admin Site:IV - Right AntecubitalAdministrator:NALDO Fan, ARRT (R)(N) Stress Admin Site: IV - Right AntecubitalAdministrator: RT Regino (R)(N) STRESS DATA End Diast. Vol.121.0mlLVEDV index BSA53.0ml End Syst. Vol.48.0mlLVESV index BSA21.0ml Myocardial Yqiv151.0gEject. Lumwwlgv48.0% Stress Scores Regional WT3.00Summed WT29.00 Regional WM0.00Summed WM3.00 LV Perfusion Scintigraphic images showed moderate sized predominantly fixed defect involving the base to mid infer ior and inferolateral walton and extending into the lateral wall consistent with previous myocardial i nfarction with very small amount of reversibility consistent with eugenie-infarct ischemia. Wall Motion Normal left ventricle systolic function with ejection fraction calculated at 60%. LV Perf. Quant 17 Seg. SSS9.00 17 Seg. SRS11.00 17 Seg. SDS1.00 Stress Defect Extent (% LAD)0.00Rest Defect Extent (% LAD)0.00Rev. Defect Extent (% LAD)0.00 Stress Defect Extent (% LCX) 68.80Rest Defect Extent (% LCX)58.80Rev. Defect Extent (% LCX)13.80 Stress Defect Extent (% RCA)25.60Rest Defect Extent (% RCA)45.60Rev. Defect Extent (% RCA)0.00 Stress Defect Extent (% JOCY)20.70Rest Defect Extent (% JOCY)23.00Rev. Defect Extent (% JOCY)2.40 Conclusion 1. Regadenoson cardioisotope stress test showed moderate sized infarct involving the base to mid infe rior and inferolateral walton extending into the lateral wall with very small amount of eugenie-infarct i schemia. 2. Normal left ventricular systolic function with ejection fraction calculated at 60%. 3. Low to intermediate risk for cardiac events. Signed by : Jt Craft, Electronically Approved : 10/06/2018 13:21:51
== END | disposition home or self-care (01) ==
LOC: NM 11:26
PROVIDERS: ATTEND Internal Medicine Cardiovascular Disease
DX: I21.19 ST elevation (STEMI) myocardial infarction involving other coronary artery of inferior wall (principal); I25.89 Other forms of chronic ischemic heart disease; I25.10 Atherosclerotic heart disease of native coronary artery without angina pectoris; I10 Essential (primary) hypertension; Z95.818 Presence of other cardiac implants and grafts
CPT/HCPCS: 78452; 93017; A9500; J2785

== ENCOUNTER 2019-09-03 09:36 | Inpatient (IN) | payer MEDICARE ==
[~2019-09-03] VITALS: Ht 185.4 cm; Wt 114.2 kg
[~2019-09-03 09:36] MED LIST changes: -REGADENOSON 0.4 MG/5 ML DISP.SYRIN. IV ONE
--- NOTE | 2019-09-03 10:14 | RAD ---
PORTABLE CHEST 1V 09/03/2019 9:52 AM INDICATION: Shortness of air and rash on entire body COMPARISON: 06/30/2017 TECHNIQUE: Portable frontal view of the chest is provided. FINDINGS: The cardiomediastinal silhouette is within normal limits. Lungs are clear. Chronic elevation left hemidiaphragm. Mild interstitial changes are identified the lung bases, likely chronic. There are no significant pleural effusions. There is no pulmonary vascular congestion. No pneumothorax. There is a sclerotic density involving the left axilla measuring 2.2 cm versus an ossific body within the joint space, stable. IMPRESSION: Chronic interstitial changes at the lung bases without acute cardiopulmonary process. Electronically signed by: Nettie Diehl MD (09/03/2019 10:11 AM) TOM
[2019-09-03 10:38] LABS: BASO % 0 % (0-3); EOS # 0.1 x10^3/uL (0.0-0.7); EOS % 1 % (0-3); HEMATOCRIT 45.6 % (39.0-53.0); HEMOGLOBIN 15.1 g/dL (13.0-17.5); LYMPH # 1.9 x10^3/uL (1.0-4.8); LYMPH % 17 % (24-48); MEAN CORPUSCULAR HEMOGLOBIN 30 pg (25-35); MEAN CORPUSCULAR HGB CONC 33 g/dL (31-37); MEAN CORPUSCULAR VOLUME 92 fL (79-100); MONO # 0.8 x10^3/uL (0.0-1.1); MONO % 7 % (0-9); NEUT # 8.3 x10^3/uL (1.8-7.7); NEUT % 75 % (31-73); PLATELET COUNT 193 x10^3/uL (140-400); RED BLOOD COUNT 4.95 x10^6/uL (4.30-5.70); RED CELL DISTRIBUTION WIDTH 16.1 % (11.5-14.5); WHITE BLOOD COUNT 11.2 x10^3/uL (4.0-11.0)
[2019-09-03 10:47] LABS: CALCIUM 8.4 mg/dL (8.5-10.1); CREATININE 1.4 mg/dL (0.7-1.3); GFR 50.1; POTASSIUM 3.9 mmol/L (3.5-5.1)
[2019-09-03 10:55] LABS: ALBUMIN 2.9 g/dL (3.4-5.0); ALBUMIN/GLOBULIN RATIO 0.8 (1.0-1.7); MAGNESIUM 1.7 mg/dL (1.8-2.4); TOTAL BILIRUBIN 0.4 mg/dL (0.2-1.0); TOTAL PROTEIN 6.4 g/dL (6.4-8.2)
[2019-09-03 11:23] LABS: PROTHROMBIN TIME PATIENT 12.3 SEC (11.7-14.0)
--- NOTE | 2019-09-03 12:04 | PHYS DOC ---
Past Medical History Past Medical History: CVA, High Cholesterol, Heart Disease, Hypertension, NH, Other Additional Past Medical Histor: gout Past Surgical History: Angioplasty Additional Past Surgical Histo: CARDIAC STENT; right hip Smoking Status: Former Smoker Alcohol Use: Occasionally Drug Use: None General Adult EDM: Chief Complaint: SHORTNESS OF BREATH HPI: HPI: Patient is a 69 year old male who presented to ER today for evaluation of trouble breathing for the last 2 days. Symptoms get worse with exertion. Patient denies any chest pain, no cough or fever. Patient was seen by his binding machine operator recently, was told that went ahead coronary stenting might be occluded, he is scheduled for cardiac catheterization on this coming . His binding machine operator told him that if he had trouble breathing he would need to come to ER so that they can cath him sooner than later. Patient denied any abdominal pain, no nausea vomiting. Review of Systems: Review of Systems: Constitutional: Denies fever or chills. [] Eyes: Denies change in visual acuity. [] HENT: Denies nasal congestion or sore throat. [] Respiratory: Denies cough , positive for shortness of breath. [] Cardiovascular: Denies chest pain or edema. [] GI: Denies abdominal pain, nausea, vomiting, bloody stools or diarrhea. [] : Denies dysuria. [] Musculoskeletal: Denies back pain or joint pain. [] Integument: Denies rash. [] Neurologic: Denies headache, focal weakness or sensory changes. [] Endocrine: Denies polyuria or polydipsia. [] Lymphatic: Denies swollen glands. [] Psychiatric: Denies depression or anxiety. [] Heart Score: Risk Factors: Risk Factors: DM, Current or recent (<one month) smoker, HTN, HLP, family history of CAD, obesity. Risk Scores: Score 0 - 3: 2.5% MACE over next 6 weeks - Discharge Home Score 4 - 6: 20.3% MACE over next 6 weeks - Admit for Clinical Observation Score 7 - 10: 72.7% MACE over next 6 weeks - Early Invasive Strategies Allergies: Allergies: Allergies Coded Allergies Type Severity Reaction Last Updated Verified lisinopril Allergy Severe swelling 06/23/16 Yes shellfish derived Allergy Severe swelling 06/23/16 Yes strawberry Allergy Severe swelling 06/23/16 Yes tomato Allergy Severe swelling 06/23/16 Yes Physical Exam: PE: Constitutional: Well developed, well nourished, no acute distress, non-toxic appearance. [] HENT: Normocephalic, atraumatic, bilateral external ears normal, oropharynx moist, no oral exudates, nose normal. [] Eyes: PERRLA, EOMI, conjunctiva normal, no discharge. [] Neck: Normal range of motion, no tenderness, supple, no stridor. [] Cardiovascular:Heart rate regular rhythm, no murmur [] Lungs & Thorax: Bilateral breath sounds clear to auscultation [] Abdomen: Bowel sounds normal, soft, no tenderness, no masses, no pulsatile masses. [] Skin: Warm, dry, diffuse papular rash on trunk and extremities. Back: No tenderness, no CVA tenderness. [] Extremities: No tenderness, no cyanosis, no clubbing, ROM intact, no edema. [] Neurologic: Alert and oriented X 3, normal motor function, normal sensory function, no focal deficits noted. [] Psychologic: Affect normal, judgement normal, mood normal. [] Current Patient Data: Labs: Laboratory Tests Test 09/03/19 09:54 White Blood Count 11.2 x10^3/uL (4.0-11.0) H Red Blood Count 4.95 x10^6/uL (4.30-5.70) Hemoglobin 15.1 g/dL (13.0-17.5) Hematocrit 45.6 % (39.0-53.0) Mean Corpuscular Volume 92 fL (79-100) Mean Corpuscular Hemoglobin 30 pg (25-35) Mean Corpuscular Hemoglobin Concent 33 g/dL (31-37) Red Cell Distribution Width 16.1 % (11.5-14.5) H Platelet Count 193 x10^3/uL (140-400) Neutrophils (%) (Auto) 75 % (31-73) H Lymphocytes (%) (Auto) 17 % (24-48) L Monocytes (%) (Auto) 7 % (0-9) Eosinophils (%) (Auto) 1 % (0-3) Basophils (%) (Auto) 0 % (0-3) Neutrophils # (Auto) 8.3 x10^3/uL (1.8-7.7) H Lymphocytes # (Auto) 1.9 x10^3/uL (1.0-4.8) Monocytes # (Auto) 0.8 x10^3/uL (0.0-1.1) Eosinophils # (Auto) 0.1 x10^3/uL (0.0-0.7) Basophils # (Auto) 0.0 x10^3/uL (0.0-0.2) Sodium Level 139 mmol/L (136-145) Potassium Level 3.9 mmol/L (3.5-5.1) Chloride Level 104 mmol/L (98-107) Carbon Dioxide Level 27 mmol/L (21-32) Anion Gap 8 (6-14) Blood Urea Nitrogen 21 mg/dL (8-26) Creatinine 1.4 mg/dL (0.7-1.3) H Estimated GFR (Cockcroft-Gault) 50.1 BUN/Creatinine Ratio 15 (6-20) Glucose Level 168 mg/dL (70-99) H Calcium Level 8.4 mg/dL (8.5-10.1) L Magnesium Level 1.7 mg/dL (1.8-2.4) L Total Bilirubin 0.4 mg/dL (0.2-1.0) Aspartate Amino Transferase (AST) 20 U/L (15-37) Alanine Aminotransferase (ALT) 52 U/L (16-63) Alkaline Phosphatase 76 U/L (46-116) Troponin I Quantitative < 0.017 ng/mL (0.000-0.055) MW-Tbl-D-Type Natriuretic Peptide 586 pg/mL (0-124) H Total Protein 6.4 g/dL (6.4-8.2) Albumin 2.9 g/dL (3.4-5.0) L Albumin/Globulin Ratio 0.8 (1.0-1.7) L Lipase 124 U/L (73-393) Laboratory Tests 09/03/19 09:54 Laboratory Tests 09/03/19 09:54 Vital Signs: Vital Signs Date Time Temp Pulse Resp B/P (MAP) Pulse Ox O2 Delivery O2 Flow Rate FiO2 09/03/19 11:22 62 112/69 (83) 96 Room Air 09/03/19 10:57 24 09/03/19 09:45 98.2 98.2 EKG: EKG: EKG was done at 950, heart rate of 62 bpm, sinus rhythm, PVC, no ST segment elevation Radiology/Procedures: Radiology/Procedures: [facility] [address] [place], [place] [id number] IMAGING REPORT Signed PATIENT: NALINI DUMONT ACCOUNT: [id number] : 1950 LOCATION: ER AGE: 69 SEX: M EXAM STATUS: PRE ER ORD. PHYSICIAN: ANGUS WELCH DO REASON: soa and rash on entire body PROCEDURE: PORTABLE CHEST 1V PORTABLE CHEST 1V 09/03/2019 9:52 AM INDICATION: Shortness of air and rash on entire body COMPARISON: 06/30/2017 TECHNIQUE: Portable frontal view of the chest is provided. FINDINGS: The cardiomediastinal silhouette is within normal limits. Lungs are clear. Chronic elevation left hemidiaphragm. Mild interstitial changes are identified the lung bases, likely chronic. There are no significant pleural effusions. There is no pulmonary vascular congestion. No pneumothorax. There is a sclerotic density involving the left axilla measuring 2.2 cm versus an ossific body within the joint space, stable. IMPRESSION: Chronic interstitial changes at the lung bases without acute cardiopulmonary process. Electronically signed by: Alaina Dubon MD (09/03/2019 10:11 AM) [facility] DICTATED and SIGNED BY: ALAINA DUBON MD DATE: 09/03/19 1011 Course & Med Decision Making: Course & Med Decision Making Pertinent Labs and Imaging studies reviewed. (See chart for details) Patient is a 69-year-old male who was evaluated in the ER due to exertional dyspnea, his binding machine operator suspect that his coronary stent occluded, discussed with the binding machine operator on-call today Dr. Smart who recommended to admit this patient to the hospital and will try to perform cardiac catheterization on Thursday. Greg Disclaimer: Dragseda Disclaimer: This electronic medical record was generated, in whole or in part, using a voice recognition dictation system. Departure Departure Impression: Primary Impression: Exertional dyspnea Disposition: ADMITTED INPATIENT Admitting Physician: CLAY (DR. KEMP) Referrals: AR GALE (PCP) Justicifation of Admission Dx: Justifications for Admission: Justification of Admission Dx: Yes Angina: Unstable Variant ANGUS WELCH DO Sep 03, 2019 12:04
[2019-09-03] MEDS ORDERED: ACETAMINOPHEN 650 MG SUPP.RECT. PR PRN (12:45)
[2019-09-03] MEDS ORDERED: DOCUSATE SODIUM 100 MG CAPSULE. PO PRN (12:45)
[2019-09-03] MEDS ORDERED: MAG HYDROX/ALUMINUM HYD/SIMETH 30 ML ORAL.SUSP PO PRN (12:45)
[2019-09-03] MEDS ORDERED: guaiFENesin ORAL 200 MG/10 ML LIQUID. PO PRN (12:45)
[2019-09-03] MEDS ORDERED: ALBUTEROL SULFATE 2.5 MG/3 ML NEBU. NEB PRN (12:45)
[2019-09-03] MEDS ORDERED: HEPARIN for IV BOLUS 10,000 UNIT/10 ML VIAL. IV PRN (12:45)
[2019-09-03] MEDS ORDERED: LORazepam 0.5 MG TABLET PO PRN (12:45)
[2019-09-03] MEDS: amLODIPine BESYLATE 10 MG TABLET PO SCH (13:00)
[2019-09-03] MEDS: ISOSORBIDE MONONITRATE ER 30 MG TAB.ER.24H PO SCH (13:00)
[2019-09-03] MEDS: hydroCHLOROthiazide 25 MG TABLET PO SCH (13:00)
--- NOTE | 2019-09-03 13:56 | PDOC1 ---
History and Physical Date of Admission Date of Admission 09/03/2019 Identification/Chief Complaint Chief Complaint I could not breathe History of Present Illness History of Present Illness Patient is a 69-year-old gentleman with past medical history of coronary artery disease and history of right carotid endarterectomy back in 2018 who was in his usual state of health until approximately 5 days prior to his admission. Patient went to see his burning supervisor who had placed a stent according to the ER physician and apparently the patient also reports being told that there was a high suspicion for an in stent stenosis giving him his dyspnea symptoms. The p atient denies paroxysmal nocturnal dyspnea no orthopnea was reported no increased salt or fluid intake either. The patient denies chest pain no palpitations he does not refer syncopal episodes he denies any slurred speech no neurological deficits no headache blurred vision no abdominal pain no nausea vomiting diarrhea or hematochezia has been reported either. The patient rates his dyspnea is severe and he has been unable to perform even activities of daily living without feeling quite short of breath. Patient denies recent sick contacts he was scheduled for another visit with his burning supervisor this coming week but he was told that if his symptoms will progress that he should go to the emergency department and be admitted to the hospital. Cardiology has been consulted and they have requested admission to the hospital under the hospitalist service and instructions to start a heparin drip were given to the ER physician as well. At the time my evaluation the patient is in no acute distress he denies any chest pain palpitations no shortness of breath at the present time he does have oxygen on at the present time he denies oxygen therapy at home plan of care has been explained detail and I have addressed all of his concerns to the best of my abilities Past Medical History Cardiovascular: CAD, HTN, ID Pulmonary: COPD CENTRAL NERVOUS SYSTEM: CVA GI: GERD Heme/Onc: No pertinent hx Hepatobiliary: No pertinent hx Psych: No pertinent hx Rheumatologic: No pertinent hx Infectious disease: No pertinent hx Renal/: No pertinent hx Endocrine: No pertinent hx Past Surgical History Past Surgical History: Total hip replacement, Other Family History Family History: Coronary Artery Disease Social History ALCOHOL: none Drugs: None Current Problem List Problem List Problems Medical Problems: (1) Exertional dyspnea Status: Acute Current Medications Current Medications Current Medications Medications (Trade) Dose Ordered Sig/Sandee Start Time Stop Time Status Last Admin Dose Admin Acetaminophen (Tylenol Supp) 650 mg PRN Q4HRS PRN 09/03/19 12:45 Al Hydroxide/Mg Hydroxide (Mylanta Plus Xs) 30 ml PRN DAILY PRN 09/03/19 12:45 Albuterol Sulfate (Ventolin Neb Soln) 2.5 mg PRN Q4HRS PRN 09/03/19 12:45 Allopurinol (Zyloprim) 300 mg QEVNG 09/03/19 18:00 Amlodipine Besylate (Norvasc) 10 mg DAILY 09/03/19 13:00 Aspirin (Ecotrin) 81 mg DAILYWBKFT 09/04/19 08:00 Atorvastatin Calcium (Lipitor) 10 mg QHS 09/03/19 21:00 Carvedilol (Coreg) 12.5 mg BIDWMEALS 09/03/19 17:00 Clopidogrel Bisulfate (Plavix) 75 mg DAILYWBKFT 09/04/19 08:00 Docusate Sodium (Colace) 100 mg PRN BID PRN 09/03/19 12:45 Guaifenesin (Robitussin) 200 mg PRN Q4HRS PRN 09/03/19 12:45 Heparin Sodium (Porcine) (Heparin Sodium) 2,800 unit PRN Q6HRS PRN 09/03/19 12:45 Heparin Sodium/ Dextrose 250 ml @ 10 mls/hr CONT PRN 09/03/19 12:45 Hydrochlorothiazide (Hydrodiuril) 25 mg DAILY 09/03/19 13:00 Isosorbide Mononitrate (Imdur) 60 mg DAILY 09/03/19 13:00 Lorazepam (Ativan) 0.5 mg PRN Q4HRS PRN 09/03/19 12:45 Allergies Allergies Allergies Coded Allergies Type Severity Reaction Last Updated Verified lisinopril Allergy Severe swelling 06/23/16 Yes shellfish derived Allergy Severe swelling 06/23/16 Yes strawberry Allergy Severe swelling 06/23/16 Yes tomato Allergy Severe swelling 06/23/16 Yes ROS Review of System CONSTITUTIONAL: No fever or chills EYES: No recent changes SKIN: No rash or itching CARDIOVASCULAR: No chest pain, syncope, palpitations, or edema RESPIRATORY: No SOB or cough GASTROINTESTINAL: No nausea, vomiting or abdominal pain NEUROLOGICAL: No headaches or weakness ENDOCRINE: No cold or heat intolerance GENITOURINARY: No urgency or frequency of urination MUSCULOSKELETAL: No back pain or joint pain LYMPHATICS: No enlarged lymph nodes PSYCHIATRIC: No anxiety or depression Physical Exam Physical Exam GEN.: No apparent distress. Alert and oriented. HEENT: Head is normocephalic, atraumatic NECK: Supple. LUNGS: Clear to auscultation. HEART: RRR, S1, S2 present. Peripheral pulses intact ABDOMEN: Soft, nontender. Positive bowel sounds. EXTREMITIES: Without any cyanosis. NEUROLOGIC: Normal speech, normal tone PSYCHIATRIC: Normal affect, normal mood. SKIN: No ulcerations Vitals Vitals Vital Signs Date Time Temp Pulse Resp B/P (MAP) Pulse Ox O2 Delivery O2 Flow Rate FiO2 09/03/19 12:52 60 152/72 (98) 95 Room Air 09/03/19 10:57 24 09/03/19 09:45 98.2 98.2 Labs Labs Laboratory Tests Test 09/03/19 09:54 White Blood Count 11.2 x10^3/uL (4.0-11.0) Red Blood Count 4.95 x10^6/uL (4.30-5.70) Hemoglobin 15.1 g/dL (13.0-17.5) Hematocrit 45.6 % (39.0-53.0) Mean Corpuscular Volume 92 fL (79-100) Mean Corpuscular Hemoglobin 30 pg (25-35) Mean Corpuscular Hemoglobin Concent 33 g/dL (31-37) Red Cell Distribution Width 16.1 % (11.5-14.5) Platelet Count 193 x10^3/uL (140-400) Neutrophils (%) (Auto) 75 % (31-73) Lymphocytes (%) (Auto) 17 % (24-48) Monocytes (%) (Auto) 7 % (0-9) Eosinophils (%) (Auto) 1 % (0-3) Basophils (%) (Auto) 0 % (0-3) Neutrophils # (Auto) 8.3 x10^3/uL (1.8-7.7) Lymphocytes # (Auto) 1.9 x10^3/uL (1.0-4.8) Monocytes # (Auto) 0.8 x10^3/uL (0.0-1.1) Eosinophils # (Auto) 0.1 x10^3/uL (0.0-0.7) Basophils # (Auto) 0.0 x10^3/uL (0.0-0.2) Prothrombin Time 12.3 SEC (11.7-14.0) Prothromb Time International Ratio 1.0 (0.8-1.1) Activated Partial Thromboplast Time 28 SEC (24-38) Sodium Level 139 mmol/L (136-145) Potassium Level 3.9 mmol/L (3.5-5.1) Chloride Level 104 mmol/L (98-107) Carbon Dioxide Level 27 mmol/L (21-32) Anion Gap 8 (6-14) Blood Urea Nitrogen 21 mg/dL (8-26) Creatinine 1.4 mg/dL (0.7-1.3) Estimated GFR (Cockcroft-Gault) 50.1 BUN/Creatinine Ratio 15 (6-20) Glucose Level 168 mg/dL (70-99) Calcium Level 8.4 mg/dL (8.5-10.1) Magnesium Level 1.7 mg/dL (1.8-2.4) Total Bilirubin 0.4 mg/dL (0.2-1.0) Aspartate Amino Transf (AST/SGOT) 20 U/L (15-37) Alanine Aminotransferase (ALT/SGPT) 52 U/L (16-63) Alkaline Phosphatase 76 U/L (46-116) Troponin I Quantitative < 0.017 ng/mL (0.000-0.055) RR-Wax-Z-Type Natriuretic Peptide 586 pg/mL (0-124) Total Protein 6.4 g/dL (6.4-8.2) Albumin 2.9 g/dL (3.4-5.0) Albumin/Globulin Ratio 0.8 (1.0-1.7) Lipase 124 U/L (73-393) Laboratory Tests Test 09/03/19 09:54 White Blood Count 11.2 x10^3/uL (4.0-11.0) Red Blood Count 4.95 x10^6/uL (4.30-5.70) Hemoglobin 15.1 g/dL (13.0-17.5) Hematocrit 45.6 % (39.0-53.0) Mean Corpuscular Volume 92 fL (79-100) Mean Corpuscular Hemoglobin 30 pg (25-35) Mean Corpuscular Hemoglobin Concent 33 g/dL (31-37) Red Cell Distribution Width 16.1 % (11.5-14.5) Platelet Count 193 x10^3/uL (140-400) Neutrophils (%) (Auto) 75 % (31-73) Lymphocytes (%) (Auto) 17 % (24-48) Monocytes (%) (Auto) 7 % (0-9) Eosinophils (%) (Auto) 1 % (0-3) Basophils (%) (Auto) 0 % (0-3) Neutrophils # (Auto) 8.3 x10^3/uL (1.8-7.7) Lymphocytes # (Auto) 1.9 x10^3/uL (1.0-4.8) Monocytes # (Auto) 0.8 x10^3/uL (0.0-1.1) Eosinophils # (Auto) 0.1 x10^3/uL (0.0-0.7) Basophils # (Auto) 0.0 x10^3/uL (0.0-0.2) Prothrombin Time 12.3 SEC (11.7-14.0) Prothromb Time International Ratio 1.0 (0.8-1.1) Activated Partial Thromboplast Time 28 SEC (24-38) Sodium Level 139 mmol/L (136-145) Potassium Level 3.9 mmol/L (3.5-5.1) Chloride Level 104 mmol/L (98-107) Carbon Dioxide Level 27 mmol/L (21-32) Anion Gap 8 (6-14) Blood Urea Nitrogen 21 mg/dL (8-26) Creatinine 1.4 mg/dL (0.7-1.3) Estimated GFR (Cockcroft-Gault) 50.1 BUN/Creatinine Ratio 15 (6-20) Glucose Level 168 mg/dL (70-99) Calcium Level 8.4 mg/dL (8.5-10.1) Magnesium Level 1.7 mg/dL (1.8-2.4) Total Bilirubin 0.4 mg/dL (0.2-1.0) Aspartate Amino Transf (AST/SGOT) 20 U/L (15-37) Alanine Aminotransferase (ALT/SGPT) 52 U/L (16-63) Alkaline Phosphatase 76 U/L (46-116) Troponin I Quantitative < 0.017 ng/mL (0.000-0.055) XW-Ktp-J-Type Natriuretic Peptide 586 pg/mL (0-124) Total Protein 6.4 g/dL (6.4-8.2) Albumin 2.9 g/dL (3.4-5.0) Albumin/Globulin Ratio 0.8 (1.0-1.7) Lipase 124 U/L (73-393) VTE Prophylaxis Ordered VTE Prophylaxis Devices: No VTE Pharmacological Prophylaxi: Yes Assessment/Plan Assessment/Plan Congestive heart failure seems to be systolic or diastolic dysfunction with acute exacerbation the present time History of carotid artery stenosis History of CAD status post PCI and stenting currently asymptomatic with dyspnea but no anginal type of symptoms History of essential hypertension Chronic kidney disease stage III History of dyslipidemia Obesity with a BMI of 33 Diabetes mellitus type 2 Plan Admit patient to the cardiovascular floor Consult cardiology According to ER report patient is scheduled for a cardiac catheterization on Thursday Heparin drip Resume home medications Further recommendations based on the clinical course DVT prophylaxis patient will be on a heparin drip Justicifation of Admission Dx: Justifications for Admission: Justification of Admission Dx: Yes CHF: Hemodynamic Instability JENNIFER KEMP MD Sep 03, 2019 13:56
[2019-09-03 14:40] VITALS: BP 152/84
[2019-09-03] MEDS ORDERED: CARV25TA2 PO (15:02)
[2019-09-03] MEDS ORDERED: HYDR-2869 PO (15:02)
[2019-09-03] MEDS: HEPARIN 25,000UTS/250ML PREMIX 250 ML IV PRN (15:20)
[2019-09-03] MEDS ORDERED: MAGNESIUM SULFATE 1GM 100 ML IV ONE (15:45)
[2019-09-03] MEDS: hydrOXYzine 25 MG TABLET PO PRN (16:32)
[2019-09-03] MEDS ORDERED: CARVEDILOL 12.5 MG TABLET. PO SCH (17:00)
[2019-09-03] MEDS: CARVEDILOL 12.5 MG TABLET. PO SCH (17:22)
[2019-09-03] MEDS: ALLOPURINOL 300 MG TABLET. PO SCH (17:24)
[2019-09-03 19:20] VITALS: BP 129/59
[2019-09-03] MEDS: ATORVASTATIN CALCIUM 10 MG TABLET. PO SCH (21:03)
[2019-09-03 23:15] VITALS: BP 133/65
[2019-09-04 03:40] VITALS: BP 113/65
[2019-09-04 04:07] LABS: HEMATOCRIT 45.8 % (39.0-53.0); HEMOGLOBIN 15.1 g/dL (13.0-17.5); RED CELL DISTRIBUTION WIDTH 16.3 % (11.5-14.5)
--- NOTE | 2019-09-04 04:27 | EKG ---
[facility] [address] [place] [address] Test Date: 2019-09-03 Test Time: 09:50:39 Pat Name: NALINI DUMONT Department: Room: 204 1 Gender: M Product Marketing Director: : 1950 Requested By: ANGUS WELCH Order Number: [id number] Reading MD: Aaron Mata MD Measurements Intervals [place] Rate: 62 P: 43 CA: 178 QRS: -78 QRSD: 84 T: 57 QT: 404 QTc: 412 Interpretive Statements SINUS RHYTHM ATRIAL PREMATURE COMPLEX(ES) LOW LIMB LEAD VOLTAGE CONSIDER LEFT VENTRICULAR HYPERTROPHY QRS(T) CONTOUR ABNORMALITY CONSIDER ANTEROLATERAL INFARCT CONSISTENT WITH INFERIOR INFARCT PROBABLY OLD ABNORMAL ECG Electronically Signed On 09-08-2019 11:45:34 CDT by Aaron Mata MD
[2019-09-04] MEDS: HEPARIN 25,000UTS/250ML PREMIX 250 ML IV PRN ×2 (04:30→17:38)
[2019-09-04 07:00] VITALS: BP 142/96
[2019-09-04] MEDS: amLODIPine BESYLATE 10 MG TABLET PO SCH (08:26)
[2019-09-04] MEDS: ISOSORBIDE MONONITRATE ER 30 MG TAB.ER.24H PO SCH (08:26)
[2019-09-04] MEDS: CARVEDILOL 12.5 MG TABLET. PO SCH ×2 (08:26→17:33)
[2019-09-04] MEDS: ASPIRIN ENTERIC COATED 81 MG TABLET.DR. PO SCH (08:26)
[2019-09-04] MEDS: CLOPIDOGREL BISULFATE 75 MG TABLET PO SCH (08:26)
[2019-09-04] MEDS: hydrOXYzine 25 MG TABLET PO PRN (08:26)
[2019-09-04] MEDS: hydroCHLOROthiazide 25 MG TABLET PO SCH (08:27)
[2019-09-04 11:00] VITALS: BP 110/65
[2019-09-04] MEDS ORDERED: MORPHINE SULFATE 2 MG/ML VIAL. IV PRN (13:00)
--- NOTE | 2019-09-04 13:04 | EKG ---
[facility] [address] [place] [address] Test Date: 2019-09-04 Test Time: 12:58:25 Pat Name: NALINI DUMONT Department: Room: 204 1 Gender: M Business Services Vice President: : 1950 Requested By: RADHA ONEIL Order Number: [id number] Reading MD: Aaron Mata MD Measurements Intervals [place] Rate: 70 P: 46 OR: 182 QRS: 206 QRSD: 90 T: 22 QT: 424 QTc: 461 Interpretive Statements SINUS RHYTHM RBBB Electronically Signed On 09-05-2019 12:42:00 CDT by Aaron Mata MD
--- NOTE | 2019-09-04 13:30 | PDOC ---
GENERAL General: Patient examined chart reviewed today's hospital day 2 for this patient with worsening exertional dyspnea. He has a history of coronary disease with stent placement in the past he is not sure of the exact timing had seen his student services coordinator and the plan was for outpatient assessment but was advised to come to the emergency department if symptoms worsened. His dyspnea escalated and he presented last night. He denies any fever, chills, cough, congestion. He does not believe he has been tested for sleep apnea in the past. He denies chest pain. His troponin is normal and EKG is negative for any acute change. It sounds like the plan is for cardiac cath in the morning. Patient is in good spirits this afternoon tells me he had a shower and walk around the unit short of breath but feels better now that he is here and knows that he is getting assessed. All other systems reviewed and negative. Total time today is 30 minutes with greater than 50% in counseling and coordination of care most of which in discussion with patient. Problems: (1) S/P coronary artery stent placement (2) Morbid obesity (3) Coronary artery disease (4) Exertional dyspnea (5) Hypertension VITAL SIGNS Vital Signs/I&O: Vital Signs Date Time Temp Pulse Resp B/P (MAP) Pulse Ox O2 Delivery O2 Flow Rate FiO2 09/04/19 11:00 98.6 63 18 110/65 (80) 94 Room Air 98.6 09/04/19 03:40 2.0 l I & O 09/03/19 09/03/19 09/04/19 15:00 23:00 07:00 Intake Total 480 ml Output Total 1500 ml Balance -1020 ml In general the patient is pleasant alert and oriented x3 somewhat dyspneic in no acute distress HEENT exam is unremarkable Chest is notable for tachypnea bilateral equal air entry though diminished throughout no crackles or wheezes are noted Heart S1-S2 normal regular rate and rhythm no murmurs or gallops are noted Abdomen is obese soft nontender nondistended no masses organomegaly noted Extremity exam is unremarkable for acute abnormality ALLERGIES Allergies: Allergies Coded Allergies Type Severity Reaction Last Updated Verified lisinopril Allergy Severe swelling 06/23/16 Yes shellfish derived Allergy Severe swelling 06/23/16 Yes strawberry Allergy Severe swelling 06/23/16 Yes tomato Allergy Severe swelling 06/23/16 Yes MEDS Medications: Current Medications Medications (Trade) Dose Ordered Sig/Sandee Route PRN Reason Start Time Stop Time Status Last Admin Dose Admin Allopurinol (Zyloprim) 300 mg QEVNG PO 09/03/19 18:00 09/03/19 17:24 Aspirin (Ecotrin) 81 mg DAILYWBKFT PO 09/04/19 08:00 09/04/19 08:26 Clopidogrel Bisulfate (Plavix) 75 mg DAILYWBKFT PO 09/04/19 08:00 09/04/19 08:26 Atorvastatin Calcium (Lipitor) 10 mg QHS PO 09/03/19 21:00 09/03/19 21:03 Carvedilol (Coreg) 25 mg BIDWMEALS PO 09/03/19 17:00 09/04/19 08:26 Hydroxyzine HCl (Atarax) 25 mg PRN Q8HRS PRN PO ITCHING 09/03/19 15:45 09/04/19 08:26 Magnesium Sulfate/ Dextrose 100 ml @ 100 mls/hr 1X ONCE IV 09/03/19 15:45 09/03/19 16:44 DC 09/03/19 16:32 LAB Lab: Laboratory Tests Test 09/03/19 21:30 09/04/19 03:55 09/04/19 04:00 Heparin Anti-Xa Act, Unfractionated 0.12 IU/mL (0.30-0.70) L 0.70 IU/mL (0.30-0.70) White Blood Count 10.0 x10^3/uL (4.0-11.0) Red Blood Count 5.00 x10^6/uL (4.30-5.70) Hemoglobin 15.1 g/dL (13.0-17.5) Hematocrit 45.8 % (39.0-53.0) Mean Corpuscular Volume 92 fL (79-100) Mean Corpuscular Hemoglobin 30 pg (25-35) Mean Corpuscular Hemoglobin Concent 33 g/dL (31-37) Red Cell Distribution Width 16.3 % (11.5-14.5) H Platelet Count 167 x10^3/uL (140-400) Laboratory Tests 09/04/19 03:55 IMAGING Imaging: PATIENT: NALINI DUMONT ACCOUNT: [id number] : 1950 LOCATION: ER AGE: 69 SEX: M EXAM STATUS: PRE ER ORD. PHYSICIAN: ANGUS WELCH DO REASON: soa and rash on entire body PROCEDURE: PORTABLE CHEST 1V PORTABLE CHEST 1V 09/03/2019 9:52 AM INDICATION: Shortness of air and rash on entire body COMPARISON: 06/30/2017 TECHNIQUE: Portable frontal view of the chest is provided. FINDINGS: The cardiomediastinal silhouette is within normal limits. Lungs are clear. Chronic elevation left hemidiaphragm. Mild interstitial changes are identified the lung bases, likely chronic. There are no significant pleural effusions. There is no pulmonary vascular congestion. No pneumothorax. There is a sclerotic density involving the left axilla measuring 2.2 cm versus an ossific body within the joint space, stable. IMPRESSION: Chronic interstitial changes at the lung bases without acute cardiopulmonary process. Electronically signed by: Nettie Diehl MD (09/03/2019 10:11 AM) [facility] ASSESSMENT & PLAN A&P Plan as noted above This note was created using [employer] and may have omissions and/or errors due to the nature of real-time voice final cigar and box examiner. CLARA STEVENSON MD Sep 04, 2019 13:30
--- NOTE | 2019-09-04 14:22 | PDOC2 ---
CONSULT Date of Consult Date of Consult DATE: 09/04/19 TIME: 14:16 Reason for Consult Reason for Consult: Increasing dyspnea on exertion Referring Physician Referring Physician: Dr. Batres Identification/Chief Complaint Chief Complaint Shortness of breath and dyspnea on exertion Source Source: Chart review, Patient History of Present Illness Reason for Visit: The patient is a 69-year-old male with a history of coronary disease and previous infarction and stenting. He has been followed in the channel director office by Dr. Mata for increasing shortness of breath. He presented to the emergency room with 2 days of further increasing shortness of breath but no typical chest pain. EKG showed a sinus rhythm with no acute ischemic changes. Chest x-ray showed no acute processes. Patient is now more comfortable while at rest. He states however that he was being scheduled for a heart catheterization within the next week for further evaluation of possible restenosis of previous stent and a possible right heart catheterization. Past Medical History Cardiovascular: CAD, HTN, [place], Hyperlipidemia Pulmonary: COPD CENTRAL NERVOUS SYSTEM: CVA GI: GERD Heme/Onc: No pertinent hx Hepatobiliary: No pertinent hx Psych: No pertinent hx Musculoskeletal: Osteoarthritis Rheumatologic: No pertinent hx Infectious disease: No pertinent hx Renal/: No pertinent hx Endocrine: No pertinent hx Past Surgical History Past Surgical History: Total hip replacement, Other (Coronary stenting and right carotid endarterectomy.) Family History Family History: Coronary Artery Disease Social History Quit ALCOHOL: rare Drugs: None Lives: with Family Current Problem List Problem List Problems Medical Problems: (1) Exertional dyspnea Status: Acute Current Medications Current Medications Current Medications Acetaminophen (Tylenol Supp) 650 mg PRN Q4HRS PRN [place] TEMP OVER 100.4F OR MILD PAIN; Start 09/03/19 at 12:45 Al Hydroxide/Mg Hydroxide (Mylanta Plus Xs) 30 ml PRN DAILY PRN PO HEARTBURN / GAS; Start 09/03/19 at 12:45 Docusate Sodium (Colace) 100 mg PRN BID PRN PO HARD STOOLS; Start 09/03/19 at 12:45 Albuterol Sulfate (Ventolin Neb Soln) 2.5 mg PRN Q4HRS PRN NEB SHORTNESS OF BREATH; Start 09/03/19 at 12:45 Guaifenesin (Robitussin) 200 mg PRN Q4HRS PRN PO COUGH; Start 09/03/19 at 12:45 Lorazepam (Ativan) 0.5 mg PRN Q4HRS PRN PO ANXIETY / AGITATION; Start 09/03/19 at 12:45 Heparin Sodium/ Dextrose 250 ml @ 10 mls/hr CONT PRN IV PER PROTOCOL Last administered on 09/04/19at 04:30; Start 09/03/19 at 12:45 Heparin Sodium (Porcine) (Heparin Sodium) 2,800 unit PRN Q6HRS PRN IV FOR UFH LEVEL LESS THAN 0.2 Last administered on 09/03/19at 22:10; Start 09/03/19 at 12:45 Allopurinol (Zyloprim) 300 mg QEVNG PO Last administered on 09/03/19 17:24; Start 09/03/19 at 18:00 Amlodipine Besylate (Norvasc) 10 mg DAILY PO Last administered on 09/04/19 08:26; Start 09/03/19 at 13:00 Aspirin (Ecotrin) 81 mg DAILYWBKFT PO Last administered on 09/04/19 08:26; Start 09/04/19 at 08:00 Carvedilol (Coreg) 12.5 mg BIDWMEALS PO ; Start 09/03/19 at 17:00; Stop 09/03/19 at 15:38; Status DC Clopidogrel Bisulfate (Plavix) 75 mg DAILYWBKFT PO Last administered on 09/04/19 08:26; Start 09/04/19 at 08:00 Hydrochlorothiazide (Hydrodiuril) 25 mg DAILY PO ; Start 09/03/19 at 13:00 Isosorbide Mononitrate (Imdur) 60 mg DAILY PO Last administered on 09/04/19 08:26; Start 09/03/19 at 13:00 Atorvastatin Calcium (Lipitor) 10 mg QHS PO Last administered on 09/03/19 21:03; Start 09/03/19 at 21:00 Carvedilol (Coreg) 25 mg BIDWMEALS PO Last administered on 09/04/19 08:26; Start 09/03/19 at 17:00 Hydroxyzine HCl (Atarax) 25 mg PRN Q8HRS PRN PO ITCHING Last administered on 09/04/19 08:26; Start 09/03/19 at 15:45 Magnesium Sulfate/ Dextrose 100 ml @ 100 mls/hr 1X ONCE IV Last administered on 09/03/19at 16:32; Start 09/03/19 at 15:45; Stop 09/03/19 at 16:44; Status DC Morphine Sulfate (Morphine Sulfate) 2 mg PRN Q2HR PRN IV MODERATE TO SEVERE PAIN; Start 09/04/19 at 13:00 Active Scripts Active Clopidogrel (Clopidogrel Bisulfate) 75 Mg Tablet 75 Mg PO DAILYWBKFT Aspirin Ec (Aspirin) 81 Mg Tablet.dr 81 Mg PO DAILYWBKFT Reported Hydralazine Hcl 50 Mg Tablet 1 Tab PO BID Carvedilol 25 Mg Tablet 25 Mg PO BIDWMEALS Allopurinol 300 Mg Tablet 1 Tab PO QEVNG Pravastatin Sodium 40 Mg Tablet 1 Tab PO QHS Hydrochlorothiazide Tablet (Hydrochlorothiazide) 25 Mg Tablet 1 Tab PO DAILY Isosorbide Mononitrate Er (Isosorbide Mononitrate) 60 Mg Tab.er.24h 1 Tab PO DAILY Amlodipine Besylate 10 Mg Tablet 10 Mg PO DAILY Allergies Allergies: Coded Allergies: lisinopril (Verified Allergy, Severe, swelling, 06/23/16) shellfish derived (Verified Allergy, Severe, swelling, 06/23/16) strawberry (Verified Allergy, Severe, swelling, 06/23/16) tomato (Verified Allergy, Severe, swelling, 06/23/16) ROS General: YES: Fatigue Respiratory: YES: Shortness of breath, SOB with excertion Physical Exam General: mild distress HEENT: Atraumatic Lungs: Other (Minimally decreased breath sounds) Heart: Regular rate Abdomen: Normal bowel sounds Vitals VITALS Vital Signs Date Time Temp Pulse Resp B/P (MAP) Pulse Ox O2 Delivery O2 Flow Rate FiO2 09/04/19 11:00 98.6 63 18 110/65 (80) 94 Room Air 98.6 09/04/19 03:40 2.0 Labs Labs Laboratory Tests Test 09/03/19 09:54 09/03/19 12:20 09/03/19 21:30 09/04/19 03:55 White Blood Count 11.2 x10^3/uL (4.0-11.0) 10.0 x10^3/uL (4.0-11.0) Red Blood Count 4.95 x10^6/uL (4.30-5.70) 5.00 x10^6/uL (4.30-5.70) Hemoglobin 15.1 g/dL (13.0-17.5) 15.1 g/dL (13.0-17.5) Hematocrit 45.6 % (39.0-53.0) 45.8 % (39.0-53.0) Mean Corpuscular Volume 92 fL (79-100) 92 fL (79-100) Mean Corpuscular Hemoglobin 30 pg (25-35) 30 pg (25-35) Mean Corpuscular Hemoglobin Concent 33 g/dL (31-37) 33 g/dL (31-37) Red Cell Distribution Width 16.1 % (11.5-14.5) 16.3 % (11.5-14.5) Platelet Count 193 x10^3/uL (140-400) 167 x10^3/uL (140-400) Neutrophils (%) (Auto) 75 % (31-73) Lymphocytes (%) (Auto) 17 % (24-48) Monocytes (%) (Auto) 7 % (0-9) Eosinophils (%) (Auto) 1 % (0-3) Basophils (%) (Auto) 0 % (0-3) Neutrophils # (Auto) 8.3 x10^3/uL (1.8-7.7) Lymphocytes # (Auto) 1.9 x10^3/uL (1.0-4.8) Monocytes # (Auto) 0.8 x10^3/uL (0.0-1.1) Eosinophils # (Auto) 0.1 x10^3/uL (0.0-0.7) Basophils # (Auto) 0.0 x10^3/uL (0.0-0.2) Prothrombin Time 12.3 SEC (11.7-14.0) Prothromb Time International Ratio 1.0 (0.8-1.1) Activated Partial Thromboplast Time 28 SEC (24-38) Sodium Level 139 mmol/L (136-145) Potassium Level 3.9 mmol/L (3.5-5.1) Chloride Level 104 mmol/L (98-107) Carbon Dioxide Level 27 mmol/L (21-32) Anion Gap 8 (6-14) Blood Urea Nitrogen 21 mg/dL (8-26) Creatinine 1.4 mg/dL (0.7-1.3) Estimated GFR (Cockcroft-Gault) 50.1 BUN/Creatinine Ratio 15 (6-20) Glucose Level 168 mg/dL (70-99) Calcium Level 8.4 mg/dL (8.5-10.1) Magnesium Level 1.7 mg/dL (1.8-2.4) Total Bilirubin 0.4 mg/dL (0.2-1.0) Aspartate Amino Transf (AST/SGOT) 20 U/L (15-37) Alanine Aminotransferase (ALT/SGPT) 52 U/L (16-63) Alkaline Phosphatase 76 U/L (46-116) Troponin I Quantitative < 0.017 ng/mL (0.000-0.055) YE-Blo-Q-Type Natriuretic Peptide 586 pg/mL (0-124) Total Protein 6.4 g/dL (6.4-8.2) Albumin 2.9 g/dL (3.4-5.0) Albumin/Globulin Ratio 0.8 (1.0-1.7) Lipase 124 U/L (73-393) Coronavirus (COVID-19)(PCR) Negative (NEGATIVE) Heparin Anti-Xa Act, Unfractionated 0.12 IU/mL (0.30-0.70) Test 09/04/19 04:00 Heparin Anti-Xa Act, Unfractionated 0.70 IU/mL (0.30-0.70) Laboratory Tests Test 09/03/19 21:30 09/04/19 03:55 09/04/19 04:00 Heparin Anti-Xa Act, Unfractionated 0.12 IU/mL (0.30-0.70) 0.70 IU/mL (0.30-0.70) White Blood Count 10.0 x10^3/uL (4.0-11.0) Red Blood Count 5.00 x10^6/uL (4.30-5.70) Hemoglobin 15.1 g/dL (13.0-17.5) Hematocrit 45.8 % (39.0-53.0) Mean Corpuscular Volume 92 fL (79-100) Mean Corpuscular Hemoglobin 30 pg (25-35) Mean Corpuscular Hemoglobin Concent 33 g/dL (31-37) Red Cell Distribution Width 16.3 % (11.5-14.5) Platelet Count 167 x10^3/uL (140-400) Images Images Chest x-ray with no acute changes. Assessment/Plan Assessment/Plan 1. Increasing dyspnea on exertion. Patient reports 2 days of increasing dyspnea on exertion. He has no typical chest pain but he has been followed in our cardiology office. EKG shows no acute changes. We will check old records. However we will tentatively schedule patient for cardiac catheterization tomorrow based on the patient's report of upcoming outpatient cath. 2. Coronary artery disease with history of myocardial infarction and previous stenting. No chest pain. No acute ischemic EKG changes. Continue medical treatment. Probable cardiac catheterization tomorrow. 3. Hypertension. Reasonable control. Continue medications. 4. Hyperlipidemia. Continue present medications and check lab. 5. History of a CVA. Thank you for allowing us to participate in the care of your patient. RADHA ONEIL MD Sep 04, 2019 14:22
[2019-09-04 15:07] VITALS: BP 135/76
[2019-09-04] MEDS: ALLOPURINOL 300 MG TABLET. PO SCH (17:33)
[2019-09-04 19:43] VITALS: BP 120/47
[2019-09-04] MEDS: ATORVASTATIN CALCIUM 10 MG TABLET. PO SCH (21:04)
[2019-09-04 22:30] VITALS: BP 129/53
[2019-09-05] VITALS (11 sets, daily range): BP systolic 102–168; BP diastolic 54–80
[2019-09-05 05:05] LABS: BASO % 0 % (0-3); EOS # 0.1 x10^3/uL (0.0-0.7); EOS % 1 % (0-3); HEMOGLOBIN 15.7 g/dL (13.0-17.5); LYMPH # 2.4 x10^3/uL (1.0-4.8); LYMPH % 26 % (24-48); MEAN CORPUSCULAR HEMOGLOBIN 30 pg (25-35); MEAN CORPUSCULAR HGB CONC 33 g/dL (31-37); MEAN CORPUSCULAR VOLUME 92 fL (79-100); MONO # 0.7 x10^3/uL (0.0-1.1); MONO % 7 % (0-9); NEUT # 6.2 x10^3/uL (1.8-7.7); NEUT % 66 % (31-73); PLATELET COUNT 183 x10^3/uL (140-400); RED BLOOD COUNT 5.23 x10^6/uL (4.30-5.70); RED CELL DISTRIBUTION WIDTH 16.4 % (11.5-14.5); WHITE BLOOD COUNT 9.4 x10^3/uL (4.0-11.0)
[2019-09-05 05:37] LABS: ALBUMIN/GLOBULIN RATIO 0.8 (1.0-1.7); CALCIUM 8.7 mg/dL (8.5-10.1); CREATININE 1.4 mg/dL (0.7-1.3); GFR 50.1; POTASSIUM 4.2 mmol/L (3.5-5.1); TOTAL BILIRUBIN 0.2 mg/dL (0.2-1.0); TOTAL PROTEIN 6.8 g/dL (6.4-8.2)
[2019-09-05] MEDS: CLOPIDOGREL BISULFATE 75 MG TABLET PO SCH (09:01)
[2019-09-05] MEDS: CARVEDILOL 12.5 MG TABLET. PO SCH ×2 (09:01→16:25)
[2019-09-05] MEDS: ASPIRIN ENTERIC COATED 81 MG TABLET.DR. PO SCH (09:01)
[2019-09-05] MEDS: ISOSORBIDE MONONITRATE ER 30 MG TAB.ER.24H PO SCH (09:02)
[2019-09-05] MEDS: amLODIPine BESYLATE 10 MG TABLET PO SCH (09:02)
--- NOTE | 2019-09-05 10:57 | NUR ---
SS following for discharge planning. SS reviewed pt chart and discussed with pt RN. Pt is from home with spouse and is currently on room air. Pt on Heparin drip and getting left heart cath today. SS will continue to follow for discharge planning.
[2019-09-05] MEDS: HEPARIN 25,000UTS/250ML PREMIX 250 ML IV PRN (11:24)
[2019-09-05] MEDS ORDERED: LIDOCAINE 1% PF 2 ML VIAL. ONE (12:08)
[2019-09-05] MEDS ORDERED: IODIXANOL 320 MG/ML 100 ML VIAL. ONE (12:09)
[2019-09-05] MEDS ORDERED: fentaNYL PF VIAL 100 MCG/2 ML VIAL ONE (12:38)
[2019-09-05] MEDS ORDERED: MIDAZOLAM HCL/PF 2 MG/2 ML VIAL. ONE (12:38)
[2019-09-05] MEDS ORDERED: HEPARIN for IV BOLUS 10,000 UNIT/10 ML VIAL. ONE (12:38)
[2019-09-05] MEDS ORDERED: VERAPAMIL 5 MG/2 ML VIAL. ONE (12:38)
[2019-09-05] MEDS ORDERED: NITROGLYCERIN 200 MCG/2 ML SYRINGE FOR CATH/VASC LAB. ONE (12:39)
[2019-09-05] MEDS ORDERED: MIDAZOLAM HCL/PF 2 MG/2 ML VIAL. IV ONE (13:00)
[2019-09-05] MEDS ORDERED: VERAPAMIL 5 MG/2 ML VIAL. IART ONE (13:00)
[2019-09-05] MEDS ORDERED: NITROGLYCERIN 200 MCG/2 ML SYRINGE FOR CATH/VASC LAB. IART ONE (13:00)
[2019-09-05] MEDS ORDERED: HEPARIN for IV BOLUS 10,000 UNIT/10 ML VIAL. IART ONE (13:00)
[2019-09-05] MEDS ORDERED: fentaNYL PF VIAL 100 MCG/2 ML VIAL IV ONE (13:00)
[2019-09-05] MEDS ORDERED: IODIXANOL 320 MG/ML 100 ML VIAL. IART ONE (13:00)
[2019-09-05] MEDS ORDERED: LIDOCAINE 1% PF 2 ML VIAL. INJ ONE (13:00)
--- NOTE | 2019-09-05 13:09 | PDOC ---
PROGRESS NOTES Chief Complaint Chief Complaint Congestive heart failure seems to be systolic or diastolic dysfunction with acute exacerbation the present time History of carotid artery stenosis History of CAD status post PCI and stenting currently asymptomatic with dyspnea but no anginal type of symptoms History of essential hypertension Chronic kidney disease stage III History of dyslipidemia Obesity with a BMI of 33 Diabetes mellitus type 2 History of Present Illness History of Present Illness Admitted with worsening exertional dyspnea. He has a history of coronary disease with stent placement in the past he is not sure of the exact timing had seen his business risk consultant and the plan was for outpatient assessment but was advised to come to the emergency department if symptoms worsened. His dyspnea escalated and he presented. He denies any fever, chills, cough, congestion. He does not believe he has been tested for sleep apnea in the past. He denies chest pain. His troponin is normal and EKG is negative for any acute change. Total time today is 30 minutes with greater than 50% in counseling and coordination of care most of which in discussion with patient. To cardiac cath this morning with left main disease and elevated right sided pressures. Still short of breath. Vitals Vitals Vital Signs Date Time Temp Pulse Resp B/P (MAP) Pulse Ox O2 Delivery O2 Flow Rate FiO2 09/05/19 13:02 67 24 96 Nasal Cannula 2.0 09/05/19 11:00 98.2 102/58 (73) 98.2 Physical Exam General: mild distress Heart: Regular rate Lungs: Clear Abdomen: Normal bowel sounds Labs LABS Laboratory Tests Test 09/04/19 14:25 09/04/19 20:55 09/05/19 03:53 09/05/19 03:55 Heparin Anti-Xa Act, Unfractionated 0.66 IU/mL (0.30-0.70) 0.44 IU/mL (0.30-0.70) 0.43 IU/mL (0.30-0.70) Troponin I Quantitative < 0.017 ng/mL (0.000-0.055) Sodium Level 139 mmol/L (136-145) Potassium Level 4.2 mmol/L (3.5-5.1) Chloride Level 103 mmol/L (98-107) Carbon Dioxide Level 27 mmol/L (21-32) Anion Gap 9 (6-14) Blood Urea Nitrogen 22 mg/dL (8-26) Creatinine 1.4 mg/dL (0.7-1.3) Estimated GFR (Cockcroft-Gault) 50.1 BUN/Creatinine Ratio 16 (6-20) Glucose Level 133 mg/dL (70-99) Calcium Level 8.7 mg/dL (8.5-10.1) Total Bilirubin 0.2 mg/dL (0.2-1.0) Aspartate Amino Transf (AST/SGOT) 30 U/L (15-37) Alanine Aminotransferase (ALT/SGPT) 68 U/L (16-63) Alkaline Phosphatase 89 U/L (46-116) Total Protein 6.8 g/dL (6.4-8.2) Albumin 3.0 g/dL (3.4-5.0) Albumin/Globulin Ratio 0.8 (1.0-1.7) White Blood Count 9.4 x10^3/uL (4.0-11.0) Red Blood Count 5.23 x10^6/uL (4.30-5.70) Hemoglobin 15.7 g/dL (13.0-17.5) Hematocrit 48.0 % (39.0-53.0) Mean Corpuscular Volume 92 fL (79-100) Mean Corpuscular Hemoglobin 30 pg (25-35) Mean Corpuscular Hemoglobin Concent 33 g/dL (31-37) Red Cell Distribution Width 16.4 % (11.5-14.5) Platelet Count 183 x10^3/uL (140-400) Neutrophils (%) (Auto) 66 % (31-73) Lymphocytes (%) (Auto) 26 % (24-48) Monocytes (%) (Auto) 7 % (0-9) Eosinophils (%) (Auto) 1 % (0-3) Basophils (%) (Auto) 0 % (0-3) Neutrophils # (Auto) 6.2 x10^3/uL (1.8-7.7) Lymphocytes # (Auto) 2.4 x10^3/uL (1.0-4.8) Monocytes # (Auto) 0.7 x10^3/uL (0.0-1.1) Eosinophils # (Auto) 0.1 x10^3/uL (0.0-0.7) Basophils # (Auto) 0.0 x10^3/uL (0.0-0.2) Assessment and Plan Assessmemt and Plan Problems Medical Problems: (1) Exertional dyspnea Status: Acute Comment Review of Relevant I have reviewed the following items thu (where applicable) has been applied. Labs Laboratory Tests Test 09/03/19 21:30 09/04/19 03:55 09/04/19 04:00 09/04/19 14:25 Heparin Anti-Xa Act, Unfractionated 0.12 IU/mL (0.30-0.70) 0.70 IU/mL (0.30-0.70) 0.66 IU/mL (0.30-0.70) White Blood Count 10.0 x10^3/uL (4.0-11.0) Red Blood Count 5.00 x10^6/uL (4.30-5.70) Hemoglobin 15.1 g/dL (13.0-17.5) Hematocrit 45.8 % (39.0-53.0) Mean Corpuscular Volume 92 fL (79-100) Mean Corpuscular Hemoglobin 30 pg (25-35) Mean Corpuscular Hemoglobin Concent 33 g/dL (31-37) Red Cell Distribution Width 16.3 % (11.5-14.5) Platelet Count 167 x10^3/uL (140-400) Troponin I Quantitative < 0.017 ng/mL (0.000-0.055) Test 09/04/19 20:55 09/05/19 03:53 09/05/19 03:55 Heparin Anti-Xa Act, Unfractionated 0.44 IU/mL (0.30-0.70) 0.43 IU/mL (0.30-0.70) Sodium Level 139 mmol/L (136-145) Potassium Level 4.2 mmol/L (3.5-5.1) Chloride Level 103 mmol/L (98-107) Carbon Dioxide Level 27 mmol/L (21-32) Anion Gap 9 (6-14) Blood Urea Nitrogen 22 mg/dL (8-26) Creatinine 1.4 mg/dL (0.7-1.3) Estimated GFR (Cockcroft-Gault) 50.1 BUN/Creatinine Ratio 16 (6-20) Glucose Level 133 mg/dL (70-99) Calcium Level 8.7 mg/dL (8.5-10.1) Total Bilirubin 0.2 mg/dL (0.2-1.0) Aspartate Amino Transf (AST/SGOT) 30 U/L (15-37) Alanine Aminotransferase (ALT/SGPT) 68 U/L (16-63) Alkaline Phosphatase 89 U/L (46-116) Total Protein 6.8 g/dL (6.4-8.2) Albumin 3.0 g/dL (3.4-5.0) Albumin/Globulin Ratio 0.8 (1.0-1.7) White Blood Count 9.4 x10^3/uL (4.0-11.0) Red Blood Count 5.23 x10^6/uL (4.30-5.70) Hemoglobin 15.7 g/dL (13.0-17.5) Hematocrit 48.0 % (39.0-53.0) Mean Corpuscular Volume 92 fL (79-100) Mean Corpuscular Hemoglobin 30 pg (25-35) Mean Corpuscular Hemoglobin Concent 33 g/dL (31-37) Red Cell Distribution Width 16.4 % (11.5-14.5) Platelet Count 183 x10^3/uL (140-400) Neutrophils (%) (Auto) 66 % (31-73) Lymphocytes (%) (Auto) 26 % (24-48) Monocytes (%) (Auto) 7 % (0-9) Eosinophils (%) (Auto) 1 % (0-3) Basophils (%) (Auto) 0 % (0-3) Neutrophils # (Auto) 6.2 x10^3/uL (1.8-7.7) Lymphocytes # (Auto) 2.4 x10^3/uL (1.0-4.8) Monocytes # (Auto) 0.7 x10^3/uL (0.0-1.1) Eosinophils # (Auto) 0.1 x10^3/uL (0.0-0.7) Basophils # (Auto) 0.0 x10^3/uL (0.0-0.2) Laboratory Tests Test 09/04/19 14:25 09/04/19 20:55 09/05/19 03:53 09/05/19 03:55 Heparin Anti-Xa Act, Unfractionated 0.66 IU/mL (0.30-0.70) 0.44 IU/mL (0.30-0.70) 0.43 IU/mL (0.30-0.70) Troponin I Quantitative < 0.017 ng/mL (0.000-0.055) Sodium Level 139 mmol/L (136-145) Potassium Level 4.2 mmol/L (3.5-5.1) Chloride Level 103 mmol/L (98-107) Carbon Dioxide Level 27 mmol/L (21-32) Anion Gap 9 (6-14) Blood Urea Nitrogen 22 mg/dL (8-26) Creatinine 1.4 mg/dL (0.7-1.3) Estimated GFR (Cockcroft-Gault) 50.1 BUN/Creatinine Ratio 16 (6-20) Glucose Level 133 mg/dL (70-99) Calcium Level 8.7 mg/dL (8.5-10.1) Total Bilirubin 0.2 mg/dL (0.2-1.0) Aspartate Amino Transf (AST/SGOT) 30 U/L (15-37) Alanine Aminotransferase (ALT/SGPT) 68 U/L (16-63) Alkaline Phosphatase 89 U/L (46-116) Total Protein 6.8 g/dL (6.4-8.2) Albumin 3.0 g/dL (3.4-5.0) Albumin/Globulin Ratio 0.8 (1.0-1.7) White Blood Count 9.4 x10^3/uL (4.0-11.0) Red Blood Count 5.23 x10^6/uL (4.30-5.70) Hemoglobin 15.7 g/dL (13.0-17.5) Hematocrit 48.0 % (39.0-53.0) Mean Corpuscular Volume 92 fL (79-100) Mean Corpuscular Hemoglobin 30 pg (25-35) Mean Corpuscular Hemoglobin Concent 33 g/dL (31-37) Red Cell Distribution Width 16.4 % (11.5-14.5) Platelet Count 183 x10^3/uL (140-400) Neutrophils (%) (Auto) 66 % (31-73) Lymphocytes (%) (Auto) 26 % (24-48) Monocytes (%) (Auto) 7 % (0-9) Eosinophils (%) (Auto) 1 % (0-3) Basophils (%) (Auto) 0 % (0-3) Neutrophils # (Auto) 6.2 x10^3/uL (1.8-7.7) Lymphocytes # (Auto) 2.4 x10^3/uL (1.0-4.8) Monocytes # (Auto) 0.7 x10^3/uL (0.0-1.1) Eosinophils # (Auto) 0.1 x10^3/uL (0.0-0.7) Basophils # (Auto) 0.0 x10^3/uL (0.0-0.2) Medications Current Medications Acetaminophen (Tylenol Supp) 650 mg PRN Q4HRS PRN [place] TEMP OVER 100.4F OR MILD PAIN; Start 09/03/19 at 12:45 Al Hydroxide/Mg Hydroxide (Mylanta Plus Xs) 30 ml PRN DAILY PRN PO HEARTBURN / GAS; Start 09/03/19 at 12:45 Docusate Sodium (Colace) 100 mg PRN BID PRN PO HARD STOOLS; Start 09/03/19 at 12:45 Albuterol Sulfate (Ventolin Neb Soln) 2.5 mg PRN Q4HRS PRN NEB SHORTNESS OF BREATH; Start 09/03/19 at 12:45 Guaifenesin (Robitussin) 200 mg PRN Q4HRS PRN PO COUGH; Start 09/03/19 at 12:45 Lorazepam (Ativan) 0.5 mg PRN Q4HRS PRN PO ANXIETY / AGITATION; Start 09/03/19 at 12:45 Heparin Sodium/ Dextrose 250 ml @ 10 mls/hr CONT PRN IV PER PROTOCOL Last administered on 09/05/19at 11:24; Start 09/03/19 at 12:45 Heparin Sodium (Porcine) (Heparin Sodium) 2,800 unit PRN Q6HRS PRN IV FOR UFH LEVEL LESS THAN 0.2 Last administered on 09/03/19at 22:10; Start 09/03/19 at 12:45 Allopurinol (Zyloprim) 300 mg QEVNG PO Last administered on 09/04/19at 17:33; Start 09/03/19 at 18:00 Amlodipine Besylate (Norvasc) 10 mg DAILY PO Last administered on 09/05/19at 09:02; Start 09/03/19 at 13:00 Aspirin (Ecotrin) 81 mg DAILYWBKFT PO Last administered on 09/05/19at 09:01; Start 09/04/19 at 08:00 Carvedilol (Coreg) 12.5 mg BIDWMEALS PO ; Start 09/03/19 at 17:00; Stop 09/03/19 at 15:38; Status DC Clopidogrel Bisulfate (Plavix) 75 mg DAILYWBKFT PO Last administered on 09/05/19at 09:01; Start 09/04/19 at 08:00 Hydrochlorothiazide (Hydrodiuril) 25 mg DAILY PO ; Start 09/03/19 at 13:00; Stop 09/04/19 at 19:01; Status DC Isosorbide Mononitrate (Imdur) 60 mg DAILY PO Last administered on 09/05/19at 09:02; Start 09/03/19 at 13:00 Atorvastatin Calcium (Lipitor) 10 mg QHS PO Last administered on 09/04/19at 21:04; Start 09/03/19 at 21:00 Carvedilol (Coreg) 25 mg BIDWMEALS PO Last administered on 09/05/19at 09:01; Start 09/03/19 at 17:00 Hydroxyzine HCl (Atarax) 25 mg PRN Q8HRS PRN PO ITCHING Last administered on 09/04/19at 08:26; Start 09/03/19 at 15:45 Magnesium Sulfate/ Dextrose 100 ml @ 100 mls/hr 1X ONCE IV Last administered on 09/03/19at 16:32; Start 09/03/19 at 15:45; Stop 09/03/19 at 16:44; Status DC Morphine Sulfate (Morphine Sulfate) 2 mg PRN Q2HR PRN IV MODERATE TO SEVERE PAIN; Start 09/04/19 at 13:00 Lidocaine HCl (Xylocaine-Mpf 1% 2ml Vial) 2 ml STK-MED ONCE .ROUTE ; Start 09/05/19 at 12:08; Stop 09/05/19 at 12:09; Status DC Iodixanol (Visipaque 320) 100 ml STK-MED ONCE .ROUTE ; Start 09/05/19 at 12:09; Stop 09/05/19 at 12:09; Status DC Heparin Sodium/ Sodium Chloride 1,000 ml @ As Directed STK-MED ONCE .ROUTE ; Start 09/05/19 at 12:09; Stop 09/05/19 at 12:09; Status DC Fentanyl Citrate (Fentanyl 2ml Vial) 100 mcg STK-MED ONCE .ROUTE ; Start 09/05/19 at 12:38; Stop 09/05/19 at 12:38; Status DC Midazolam HCl (Versed) 2 mg STK-MED ONCE .ROUTE ; Start 09/05/19 at 12:38; Stop 09/05/19 at 12:38; Status DC Heparin Sodium (Porcine) (Heparin Sodium) 10,000 unit STK-MED ONCE .ROUTE ; Start 09/05/19 at 12:38; Stop 09/05/19 at 12:38; Status DC Verapamil HCl (Verapamil) 5 mg STK-MED ONCE .ROUTE ; Start 09/05/19 at 12:38; Stop 09/05/19 at 12:38; Status DC Nitroglycerin (Nitroglycerin) 200 mcg STK-MED ONCE .ROUTE ; Start 09/05/19 at 12:39; Stop 09/05/19 at 12:39; Status DC Nitroglycerin (Nitroglycerin) 200 mcg 1X ONCE IART ; Start 09/05/19 at 13:00; Stop 09/05/19 at 13:02; Status DC Verapamil HCl (Verapamil) 2.5 mg 1X ONCE IART ; Start 09/05/19 at 13:00; Stop 09/05/19 at 13:02; Status DC Heparin Sodium (Porcine) (Heparin Sodium) 2,500 unit 1X ONCE IART ; Start 09/05/19 at 13:00; Stop 09/05/19 at 13:02; Status DC Heparin Sodium/ Sodium Chloride (HEPARIN for ARTERIAL LINE FLUSH) 1,000 unit 1X ONCE IART ; Start 09/05/19 at 13:00; Stop 09/05/19 at 13:02; Status DC Heparin Sodium/ Sodium Chloride (HEPARIN for ARTERIAL LINE FLUSH) 1,000 unit 1X ONCE IART ; Start 09/05/19 at 13:00; Stop 09/05/19 at 13:02; Status DC Midazolam HCl (Versed) 2 mg 1X ONCE IV ; Start 09/05/19 at 13:00; Stop 09/05/19 at 13:02; Status DC Fentanyl Citrate (Fentanyl 2ml Vial) 100 mcg 1X ONCE IV ; Start 09/05/19 at 13:00; Stop 09/05/19 at 13:02; Status DC Iodixanol (Visipaque 320) 100 ml 1X ONCE IART ; Start 09/05/19 at 13:00; Stop 09/05/19 at 13:02; Status DC Lidocaine HCl (Xylocaine-Mpf 1% 2ml Vial) 2 ml 1X ONCE INJ ; Start 09/05/19 at 13:00; Stop 09/05/19 at 13:02; Status DC Active Scripts Active Clopidogrel (Clopidogrel Bisulfate) 75 Mg Tablet 75 Mg PO DAILYWBKFT Aspirin Ec (Aspirin) 81 Mg Tablet.dr 81 Mg PO DAILYWBKFT Reported Hydralazine Hcl 50 Mg Tablet 1 Tab PO BID Carvedilol 25 Mg Tablet 25 Mg PO BIDWMEALS Allopurinol 300 Mg Tablet 1 Tab PO QEVNG Pravastatin Sodium 40 Mg Tablet 1 Tab PO QHS Hydrochlorothiazide Tablet (Hydrochlorothiazide) 25 Mg Tablet 1 Tab PO DAILY Isosorbide Mononitrate Er (Isosorbide Mononitrate) 60 Mg Tab.er.24h 1 Tab PO DAILY Amlodipine Besylate 10 Mg Tablet 10 Mg PO DAILY Vitals/I & O Vital Sign - Last 24 Hours 09/04/19 09/04/19 09/04/19 09/04/19 15:07 17:33 19:12 19:43 Temp 98.1 99.0 98.1 99.0 Pulse 70 70 64 Resp 18 18 B/P (MAP) 135/76 (95) 135/76 120/47 (71) Pulse Ox 96 90 O2 Delivery Room Air Room Air Room Air 09/04/19 09/05/19 09/05/19 09/05/19 22:30 02:30 07:00 08:00 Temp 98.8 98.5 98.4 98.8 98.5 98.4 Pulse 69 74 71 Resp 18 18 18 B/P (MAP) 129/53 (78) 168/68 (101) 160/68 (98) Pulse Ox 91 90 94 O2 Delivery Room Air Room Air Room Air Room Air 09/05/19 09/05/19 09/05/19 09/05/19 09:01 09:02 09:02 11:00 Temp 98.2 98.2 Pulse 71 71 71 65 Resp 18 B/P (MAP) 160/68 160/68 160/68 102/58 (73) Pulse Ox 93 O2 Delivery Room Air 09/05/19 13:02 Pulse 67 Resp 24 Pulse Ox 96 O2 Delivery Nasal Cannula O2 Flow Rate 2.0 Intake and Output 09/04/19 09/04/19 09/05/19 15:00 23:00 07:00 Intake Total 200 ml 0 ml Output Total 550 ml 350 ml 800 ml Balance -350 ml -350 ml -800 ml WISAM CLINE MD Sep 05, 2019 13:09
--- NOTE | 2019-09-05 13:39 | CARD ---
MR#: [id number] Date of Study: 09/05/2019 Ordering Physician: MANSI HART, Referring Physician: MANSI HART, Tech: NATE YANEZ RTR APPROVED REPORT Technologist: NATE YANEZ RTR Nurse: Alexa Loco R.N. Procedure(s) performed: MODERATE SEDATION TIME: 27 MIN FLUORO TIME: 3.4 MIN DOSE: 96.2 GYCM2 CONTRAST: 57CC [facility], Coronary angiography HISTORY The patient is a 69 year-old male with a history of : coronary artery disease, tobacco history() , hy pertension, dyslipidemia. INDICATION The indication(s) include : unstable angina , dyspnea. CS Clinical Frailty Scale [facility] Clinical Frailty Scale: Moderately Frail Heart Failure Heart Failure: Yes If Yes, Newly Diagnosed: No If Yes, HF Type: Diastolic If Yes, NYHA Class: Class III PROCEDURE NARRATIVE INFORMED CONSENT: After explaining the risks and benefits of the procedure and alternatives, informed consent was obtained. The patient was brought electively to the cardiac catheterization lab. A timeout was performed confi rming the patient's name, date of , procedure, and site of procedure. All necessary personnel w ere wearing the appropriate protective equipment and radiation monitor devices. (See nursing notes for medications administered). ACCESS: The right wrist was sterilely prepped and draped in the usual fashion. The right wrist was infiltrat ed with 1 mL of 2% lidocaine for subcutaneous anesthesia. A 6 [place] Terumo glide sheath was inserte d into the right radial artery without difficulty. CORONARY ANGIOGRAPHY: Right and left coronary angiography was performed using a 6Fr TIG 4.0 catheter. Left ventricular en d diastolic pressure was obtained with a pigtail catheter and pullback was performed after left ventr iculography. All catheter exchanges and advancements were performed over a guidewire. CLOSURE: At case completion the right radial sheath was removed and a Terumo radial band was applied with 13 m l of air. COMPLICATIONS: The patient tolerated the procedure well and there were no immediate complications. FINDINGS: HEMODYNAMICS: LVEDP 7 mm Hg No gradient on LV to aortic pullback. AO: 90/60 LEFT VENTRICULOGRAM:Deferred due to known normal EF by echo. CORONARY ANGIOGRAPHY: LM is a large caliber vessel with an eccentric distal 70% stenosis. . LAD is a large caliber vessel with proximal ectasia followed by a 50% stenosis and mild distal lumina l irregularities. D1 is a moderate caliber vessel with mild luminal irregularities. LCx is a moderate caliber non-dominant vessel with mild luminal irregularities. RCA is a large caliber vessel with a proximal 70% stenosis, followed by a patent stent, a distal 70% stenosis. RPDA is a moderate caliber vessel with mild diffuse irregularities of up to 30% RPL is a moderate caliber vessel with mild luminal irregularities. Conclusion 1. Normal left sided filling pressures. 2. Two vessel coronary disease with LM involvement. Recommendations 1. Pulmonary evaluation due to severe dyspnea as presenting symptom. 2. If no clear pulmonary source identified, evaluation for CABG versus high risk PCI. Signed by : Mansi Hart, Electronically Approved : 09/05/2019 13:39:10
--- NOTE | 2019-09-05 13:56 | CONS ---
DATE OF CONSULTATION: PULMONARY CONSULTATION ATTENDING PHYSICIAN: Davi Batres MD REASON FOR CONSULTATION: Dyspnea, hypoxia. HISTORY OF PRESENT ILLNESS: The patient is a 69-year-old obese male with a BMI of 32.9. He also has 35 years of tobacco use. The patient presented with increasing dyspnea for the last 2 weeks along with chest pains. The patient said he was doing reasonably well prior to that. He was taken to the cardiac catheterization lab and was found to have multivessel coronary artery disease including left main disease. His left ventricular end diastolic pressure was 7. I have been asked to see him for further evaluation of his dyspnea since he was not in heart failure by cardiac catheterization findings. He did not have a right heart catheterization. The patient states that he has put on about 20 pounds in the last 3-4 months. He smoked for about 35 years before quitting in 2012. He had no prior history of pulmonary embolism. He said he had a DVT in 2019 after his hip surgery. He also had 2 strokes for which he has been on anticoagulation with Plavix. He has snoring, daytime somnolence and has witnessed apneas, but never had any formal sleep study. I have reviewed his imaging study from 2018. At that time, he had a CT chest on 04/05/2017, it showed discoid atelectasis in the left lower lobe, but no evidence of any interstitial lung disease. He does have a parrot for about 10 years in his bedroom. Denies any cough, fever or chills. No headache, no nausea, vomiting, no diarrhea, no dysuria. No focal weakness. No increasing leg edema. PAST MEDICAL HISTORY: Significant for history of suspected COPD, history of CAD, hypertension, IA, CVA. History of deep venous thrombosis, post-hip surgery in 2019. PAST SURGICAL HISTORY: Total hip replacement. FAMILY HISTORY: Coronary artery disease. SOCIAL HISTORY: Smoked for about 35 years before quitting in 2012. ALLERGIES: LISINOPRIL. MEDICATIONS: Reviewed as listed in the MRAD. REVIEW OF SYSTEMS: Twelve-point system obtained. Pertinent positives discussed in my history of present illness, was otherwise noncontributory. All systems that were negative were reviewed as well. PHYSICAL EXAMINATION: VITAL SIGNS: Reviewed. Blood pressure has varied between 160-102 systolic, pulse oximetry 96% on 2 liters, afebrile. HEENT: Sclerae nonicteric. NECK: Supple. LUNGS: With diminished breath sounds at the bases. No crackles. CARDIOVASCULAR: With a regular rate. ABDOMEN: Soft, obese. EXTREMITIES: With no pitting edema. LABORATORY DATA: Reviewed. Creatinine 1.4, BUN 22. White cell count 9.4, hemoglobin 15.7 and platelets are 183. IMPRESSION: Exertional dyspnea and acute hypoxic respiratory failure since past 2 weeks along with chest pains. He is status post catheterization and was found to have multivessel coronary artery disease including left main disease. The patient's exertional dyspnea and hypoxia appears to be related to his coronary artery disease. However, since his left ventricular end diastolic pressure was only 7, it seems reasonable to rule out other etiologies especially pulmonary etiologies. My clinical suspicion for thromboembolic disease is low. However, we will do a CTA chest. He has a parrot for last 10 years in his room, although he had no evidence of any interstitial lung disease based on the CT chest in 2018. It would be reasonable to repeat that. He has 35 years of tobacco use and underlying COPD is a contributing factor. In addition, 20-pound weight gain in last 2-3 months is also another contributing factor to his exertional dyspnea. He also has highly suspected sleep apnea, for which he would need outpatient polysomnogram. RECOMMENDATIONS: 1. CTA chest in the next 24 hours after IV hydration to improve his creatinine. 2. Full PFTs as an outpatient. 3. Sleep study as an outpatient. 4. If there is no evidence of interstitial lung disease or thromboembolic disease, then pulmonary etiologies would be ruled out. We will also obtain an echocardiogram to rule out any pulmonary hypertension. 5. The patient will need to be transferred to another facility in the next few days for coronary artery bypass grafting. 6. Weight loss is strongly advised. 7. Discussed with the patient's daughter. Discussed with Dr. Mata and will follow along with you. We will also need a 6-minute walk test. TIMUR BEAN MD DR: SANDEEP/nona JOB#: [id number] / [id number]
[2019-09-05] MEDS: IV NORMAL SALINE 1000ML BAG 1,000 ML IV SCH ×2 (14:28→20:23)
[2019-09-05] MEDS: POLYETHYLENE GLYCOL 3350 17 GM PACKET. PO SCH ×2 (15:00→15:20)
[2019-09-05] MEDS: PSYLLIUM HUSK (SUGAR FREE) 1 PKT PACKET PO SCH ×2 (15:00→15:20)
[2019-09-05] MEDS: ALLOPURINOL 300 MG TABLET. PO SCH (17:19)
[2019-09-05] MEDS: ATORVASTATIN CALCIUM 10 MG TABLET. PO SCH (20:22)
[2019-09-06 03:12] VITALS: BP 118/56
[2019-09-06 05:31] LABS: HEMATOCRIT 47.7 % (39.0-53.0); HEMOGLOBIN 15.6 g/dL (13.0-17.5); RED BLOOD COUNT 5.2 x10^6/uL (4.30-5.70); RED CELL DISTRIBUTION WIDTH 16.1 % (11.5-14.5); WHITE BLOOD COUNT 8.6 x10^3/uL (4.0-11.0)
[2019-09-06] MEDS ORDERED: IOHEXOL 350 MG/ML 100 ML VIAL. IV ONE (07:15)
--- NOTE | 2019-09-06 07:25 | EKG ---
[facility] [address] [place] [address] Test Date: 2019-09-03 Test Time: 09:49:01 Pat Name: NALINI DUMONT Department: Room: 204 1 Gender: M [employer] Checker: : 1950 Requested By: JENNIFER KEMP Order Number: [id number] Reading MD: Aaron Mata MD Measurements Intervals [place] Rate: 63 P: 51 WI: 176 QRS: 64 QRSD: 88 T: 56 QT: 408 QTc: 421 Interpretive Statements SINUS RHYTHM RBBB NON-SPECIFIC ST/T CHANGES Electronically Signed On 09-08-2019 11:45:23 CDT by Aaron Mata MD
[2019-09-06] MEDS: ISOSORBIDE MONONITRATE ER 30 MG TAB.ER.24H PO SCH (08:29)
[2019-09-06] MEDS: ASPIRIN ENTERIC COATED 81 MG TABLET.DR. PO SCH (08:29)
[2019-09-06] MEDS: amLODIPine BESYLATE 10 MG TABLET PO SCH (08:29)
[2019-09-06] MEDS: CLOPIDOGREL BISULFATE 75 MG TABLET PO SCH (08:29)
[2019-09-06] MEDS: CARVEDILOL 12.5 MG TABLET. PO SCH ×2 (08:30→17:02)
[2019-09-06] MEDS: POLYETHYLENE GLYCOL 3350 17 GM PACKET. PO SCH (08:31)
[2019-09-06] MEDS: PSYLLIUM HUSK (SUGAR FREE) 1 PKT PACKET PO SCH (08:31)
--- NOTE | 2019-09-06 08:59 | RAD ---
Examination: CT ANGIOGRAPHY CHEST History: Reason: hypoxia/dyspnea/ CP / Spl. Instructions: IV OMNI 350 80 MLS / History: Comparison/Correlation: None Findings: Axial images of the chest were obtained following IV contrast. Pulmonary arteriography protocol. Maximum intensity projection images were provided. Sagittal and coronal reformatted images were provided. Pulmonary arterial vasculature is normal with no abnormal embolic disease identified. Very small right pleural effusion is present. Small left pleural effusion is noted. No enlarged thoracic lymph nodes. Bilateral lower lobe bronchial wall thickening is present. Marked calcific involvement of the main pulmonary arterial bifurcation is present. Significant calcification involving the proximal left anterior descending coronary artery is noted. Diffuse calcific involvement of the right coronary artery is noted. Calcification involving the proximal left circumflex coronary artery is also seen and is lesser in extent. Fatty infiltration of the liver is noted. Subcapsular hypervascular lesion involving the left hepatic lobe inferiorly is present on axial image 140 measuring 0.6 in diameter. This is too small to characterize and may represent a flash filling hemangioma or other benign process. Scattered calcific involvement of the thoracic aorta is evident. There is no thoracic aortic aneurysm or dissection. Linear atelectasis at the left lung base is noted. No enlarged thoracic lymph nodes. Multilevel degenerative space narrowing of the thoracic spine noted. Impression: There is no pulmonary arterial thromboembolic disease. Very small pleural effusion. Minimal linear atelectasis. Findings of chronic bronchitis. Marked coronary arterial calcification. Subcapsular hypervascular lesion involving left hepatic lobe which is too small to characterize and likely represents a flash filling hemangioma or other benign process. Infiltration of the liver. PQRS Compliance Statement: One or more of the following individualized dose reduction techniques were utilized for this examination: 1. Automated exposure control 2. Adjustment of the mA and/or kV according to patient size 3. Use of iterative reconstruction technique Electronically signed by: Bryan Maguire MD (09/06/2019 8:57 AM) [id number]
--- NOTE | 2019-09-06 10:45 | PDOC ---
JEFFREY HERNANDEZ CONGRESSIONAL REPRESENTATIVE 09/06/19 1045: CARDIO Progress Notes Date and Time Date of Service 09/06/19 Time of Evaluation 1120 Subjective Subjective: No Chest Pain, No shortness of breath, No Palpitations Vitals Vitals Vital Signs Date Time Temp Pulse Resp B/P (MAP) Pulse Ox O2 Delivery O2 Flow Rate FiO2 09/06/19 08:30 68 118/56 09/06/19 08:00 Room Air 09/06/19 03:12 98.4 18 93 2.0 98.4 Weight Weight [ ] Input and Output Intake and Output Intake and Output 09/06/19 07:00 Intake Total 2750 ml Output Total 1300 ml Balance 1450 ml Intake Oral 1300 ml IV Total 1200 ml Other 250 ml Output Urine Total 1300 ml # Voids 1 # Bowel Movements 2 Laboratory Labs Laboratory Tests Test 09/06/19 05:00 White Blood Count 8.6 x10^3/uL (4.0-11.0) Red Blood Count 5.20 x10^6/uL (4.30-5.70) Hemoglobin 15.6 g/dL (13.0-17.5) Hematocrit 47.7 % (39.0-53.0) Mean Corpuscular Volume 92 fL (79-100) Mean Corpuscular Hemoglobin 30 pg (25-35) Mean Corpuscular Hemoglobin Concent 33 g/dL (31-37) Red Cell Distribution Width 16.1 % (11.5-14.5) Platelet Count 175 x10^3/uL (140-400) Heparin Anti-Xa Act, Unfractionated 0.44 IU/mL (0.30-0.70) Physical Exam HEENT: Neck Supple W Full Motion Chest: Symmetric LUNGS: Clear to Auscultation Heart: S1S2, RRR Abdomen: Soft N/T Extremities: No Edema Neurology: alert, oriented, follow commands, other (anxious) Assessment Assessment 1. CAD; s/p previous PCI/BMS to RCA. Cath noted with 3VD with LM involvement 2. Acute hypoxic respiratory failure, SRIVASTAVA; CTA negative for PE 3. Hypertension 4. Hyperlipidemia 5. H/o CVA 6. History of a CVA 7. H/o right ICA stenosis; s/p endarterectomy . 8. Hypomagnesemia 9. Anxiety Recommendations DC IVFs Echo with bubble study to assess LV systolic function, PAP, and r/o intracardiac shunting Follow pulm recommendations CTS evaluation Secondary prevention; ASA/ Plavix, BB, Imdur, statin- will increase to high-dose therapy Supportive care Justicifation of Admission Dx: Justifications for Admission: Justification of Admission Dx: Yes CHF: Hemodynamic Instability MANSI HART MD 09/06/19 1533: CARDIO Progress Notes Plan Plan Patient seen and examined. Agree with above nurse practitioner note. No acute events overnight. CT of the chest reviewed with Dr. Shukla. No specific pulmonary pathology to help explain his symptoms. Check a 6-minute emmanuel walk. Hold Plavix. Discussed case with Dr. Dunn. Once the patient has had a chance to discuss issues with cardiac surgery, we will make final revascularization plans whether he would be high risk PCI of the left main versus coronary artery bypass surgery. JEFFREY HERNANDEZ APRN Sep 06, 2019 10:45 MANSI HART MD Sep 06, 2019 15:33
--- NOTE | 2019-09-06 10:54 | PDOC ---
PULMONARY PROGRESS NOTES Subjective no soa. no CP Vitals Vital Signs Date Time Temp Pulse Resp B/P (MAP) Pulse Ox O2 Delivery O2 Flow Rate FiO2 09/06/19 08:30 68 118/56 09/06/19 08:00 Room Air 09/06/19 03:12 98.4 18 93 2.0 98.4 ROS: No Chest Pain General: Alert, No acute distress Lungs: Other (decrease bases) Cardiovascular: S1 Abdomen: Soft Neuro Exam: Alert Extremities: No Edema Skin: Warm Labs Laboratory Tests Test 09/04/19 14:25 09/04/19 20:55 09/05/19 03:53 09/05/19 03:55 Heparin Anti-Xa Act, Unfractionated 0.66 IU/mL (0.30-0.70) 0.44 IU/mL (0.30-0.70) 0.43 IU/mL (0.30-0.70) Troponin I Quantitative < 0.017 ng/mL (0.000-0.055) Sodium Level 139 mmol/L (136-145) Potassium Level 4.2 mmol/L (3.5-5.1) Chloride Level 103 mmol/L (98-107) Carbon Dioxide Level 27 mmol/L (21-32) Anion Gap 9 (6-14) Blood Urea Nitrogen 22 mg/dL (8-26) Creatinine 1.4 mg/dL (0.7-1.3) Estimated GFR (Cockcroft-Gault) 50.1 BUN/Creatinine Ratio 16 (6-20) Glucose Level 133 mg/dL (70-99) Calcium Level 8.7 mg/dL (8.5-10.1) Total Bilirubin 0.2 mg/dL (0.2-1.0) Aspartate Amino Transf (AST/SGOT) 30 U/L (15-37) Alanine Aminotransferase (ALT/SGPT) 68 U/L (16-63) Alkaline Phosphatase 89 U/L (46-116) Total Protein 6.8 g/dL (6.4-8.2) Albumin 3.0 g/dL (3.4-5.0) Albumin/Globulin Ratio 0.8 (1.0-1.7) White Blood Count 9.4 x10^3/uL (4.0-11.0) Red Blood Count 5.23 x10^6/uL (4.30-5.70) Hemoglobin 15.7 g/dL (13.0-17.5) Hematocrit 48.0 % (39.0-53.0) Mean Corpuscular Volume 92 fL (79-100) Mean Corpuscular Hemoglobin 30 pg (25-35) Mean Corpuscular Hemoglobin Concent 33 g/dL (31-37) Red Cell Distribution Width 16.4 % (11.5-14.5) Platelet Count 183 x10^3/uL (140-400) Neutrophils (%) (Auto) 66 % (31-73) Lymphocytes (%) (Auto) 26 % (24-48) Monocytes (%) (Auto) 7 % (0-9) Eosinophils (%) (Auto) 1 % (0-3) Basophils (%) (Auto) 0 % (0-3) Neutrophils # (Auto) 6.2 x10^3/uL (1.8-7.7) Lymphocytes # (Auto) 2.4 x10^3/uL (1.0-4.8) Monocytes # (Auto) 0.7 x10^3/uL (0.0-1.1) Eosinophils # (Auto) 0.1 x10^3/uL (0.0-0.7) Basophils # (Auto) 0.0 x10^3/uL (0.0-0.2) Test 09/06/19 05:00 White Blood Count 8.6 x10^3/uL (4.0-11.0) Red Blood Count 5.20 x10^6/uL (4.30-5.70) Hemoglobin 15.6 g/dL (13.0-17.5) Hematocrit 47.7 % (39.0-53.0) Mean Corpuscular Volume 92 fL (79-100) Mean Corpuscular Hemoglobin 30 pg (25-35) Mean Corpuscular Hemoglobin Concent 33 g/dL (31-37) Red Cell Distribution Width 16.1 % (11.5-14.5) Platelet Count 175 x10^3/uL (140-400) Heparin Anti-Xa Act, Unfractionated 0.44 IU/mL (0.30-0.70) Laboratory Tests Test 09/06/19 05:00 White Blood Count 8.6 x10^3/uL (4.0-11.0) Red Blood Count 5.20 x10^6/uL (4.30-5.70) Hemoglobin 15.6 g/dL (13.0-17.5) Hematocrit 47.7 % (39.0-53.0) Mean Corpuscular Volume 92 fL (79-100) Mean Corpuscular Hemoglobin 30 pg (25-35) Mean Corpuscular Hemoglobin Concent 33 g/dL (31-37) Red Cell Distribution Width 16.1 % (11.5-14.5) Platelet Count 175 x10^3/uL (140-400) Heparin Anti-Xa Act, Unfractionated 0.44 IU/mL (0.30-0.70) Medications Active Scripts Medications Dose Route/Sig Max Daily Dose Days Date Category Hydralazine Hcl 50 Mg Tablet 1 Tab PO BID 09/03/19 Reported Carvedilol 25 Mg Tablet 25 Mg PO BIDWMEALS 09/03/19 Reported Clopidogrel (Clopidogrel Bisulfate) 75 Mg Tablet 75 Mg PO DAILYWBKFT 07/02/17 Rx Aspirin Ec (Aspirin) 81 Mg Tablet.dr 81 Mg PO DAILYWBKFT 07/02/17 Rx Allopurinol 300 Mg Tablet 1 Tab PO QEVNG 04/05/17 Reported Pravastatin Sodium 40 Mg Tablet 1 Tab PO QHS 04/05/17 Reported Hydrochlorothiazide Tablet (Hydrochlorothiazide) 25 Mg Tablet 1 Tab PO DAILY 04/05/17 Reported Isosorbide Mononitrate Er (Isosorbide Mononitrate) 60 Mg Tab.er.24h 1 Tab PO DAILY 04/05/17 Reported Amlodipine Besylate 10 Mg Tablet 10 Mg PO DAILY 04/05/17 Reported Impression . IMPRESSION: Exertional dyspnea and acute hypoxic respiratory failure since past 2 weeks along with chest pains. He is status post catheterization and was found to have multivessel coronary artery disease including left main disease. The patient's exertional dyspnea and hypoxia appears to be related to his coronary artery disease. However, since his left ventricular end diastolic pressure was only 7, it seems reasonable to rule out other etiologies especially pulmonary etiologies. My clinical suspicion for thromboembolic disease is low. However, we will do a CTA chest. He has a parrot for last 10 years in his room, although he had no evidence of any interstitial lung disease based on the CT chest in 2018. It would be reasonable to repeat that. He has 35 years of tobacco use and underlying COPD is a contributing factor. In addition, 20-pound weight gain in last 2-3 months is also another contributing factor to his exertional dyspnea. He also has highly suspected sleep apnea, for which he would need outpatient polysomnogram. Plan . 1. CTA chest reviewed. NO PE or ILD 2. Full PFTs as an outpatient. 3. Sleep study as an outpatient. 4. obtain an echocardiogram to rule out any pulmonary hypertension. 5. The patient will need to be transferred to another facility in the next few days for coronary artery bypass grafting. 6. Weight loss is strongly advised. 7. We will also need a 6-minute walk test. 8. Dyspnea likely related to CAD TIMUR BEAN MD Sep 06, 2019 10:54
[2019-09-06 11:00] VITALS: BP 104/53
[2019-09-06 11:07] LABS: CALCIUM 8.8 mg/dL (8.5-10.1); CREATININE 1.4 mg/dL (0.7-1.3); GFR 50.1; POTASSIUM 4.4 mmol/L (3.5-5.1)
--- NOTE | 2019-09-06 11:43 | NUR ---
SS following up with discharge planning. SS reviewed pt chart and discussed with pt RN. Pt is currently requiring oxygen. Pt had heart cath on 09/05/2019. Per RN, pt has left main disease and may need bypass. Cardiology discussing plan of care. SS will continue to follow for discharge planning.
--- NOTE | 2019-09-06 12:13 | PDOC ---
PROGRESS NOTES Chief Complaint Chief Complaint A/P: Congestive heart failure seems to be systolic or diastolic dysfunction with acute exacerbation the present time History of carotid artery stenosis History of CAD status post PCI and stenting currently asymptomatic with dyspnea but no anginal type of symptoms History of essential hypertension Chronic kidney disease stage III History of dyslipidemia Obesity with a BMI of 33 Diabetes mellitus type 2 FEN - Cardiac PPX - heparin FULL CODE Dispo - inpatient for coronary syndrome Total time today is 30 minutes with greater than 50% in counseling and coordination of care most of which in discussion with patient. History of Present Illness History of Present Illness Admitted with worsening exertional dyspnea. He has a history of coronary disease with stent placement in the past he is not sure of the exact timing had seen his breakfast server and the plan was for outpatient assessment but was advised to come to the emergency department if symptoms worsened. His dyspnea escalated and he presented. He denies any fever, chills, cough, congestion. He does not believe he has been tested for sleep apnea in the past. He denies chest pain. His troponin is normal and EKG is negative for any acute change. 09/04: To cardiac cath this morning with left main disease and elevated right sided pressures. Still short of breath. Still with dyspnea today. CTPA with embolic disease or interstitial lung disease. D/w patient that with no clear pulmonary source identified, evaluation for CABG versus high risk PCI is appropriate. He is really asking to go home. Vitals Vitals Vital Signs Date Time Temp Pulse Resp B/P (MAP) Pulse Ox O2 Delivery O2 Flow Rate FiO2 09/06/19 11:00 98.2 66 18 104/53 (70) 93 Nasal Cannula 2.0 98.2 Physical Exam General: Alert, Oriented X3, Cooperative, mild distress Heart: Regular rate Lungs: Other (decrease bases) Abdomen: Normal bowel sounds Labs LABS Laboratory Tests Test 09/06/19 05:00 White Blood Count 8.6 x10^3/uL (4.0-11.0) Red Blood Count 5.20 x10^6/uL (4.30-5.70) Hemoglobin 15.6 g/dL (13.0-17.5) Hematocrit 47.7 % (39.0-53.0) Mean Corpuscular Volume 92 fL (79-100) Mean Corpuscular Hemoglobin 30 pg (25-35) Mean Corpuscular Hemoglobin Concent 33 g/dL (31-37) Red Cell Distribution Width 16.1 % (11.5-14.5) Platelet Count 175 x10^3/uL (140-400) Heparin Anti-Xa Act, Unfractionated 0.44 IU/mL (0.30-0.70) Sodium Level 139 mmol/L (136-145) Potassium Level 4.4 mmol/L (3.5-5.1) Chloride Level 105 mmol/L (98-107) Carbon Dioxide Level 29 mmol/L (21-32) Anion Gap 5 (6-14) Blood Urea Nitrogen 23 mg/dL (8-26) Creatinine 1.4 mg/dL (0.7-1.3) Estimated GFR (Cockcroft-Gault) 50.1 Glucose Level 117 mg/dL (70-99) Calcium Level 8.8 mg/dL (8.5-10.1) Magnesium Level 2.1 mg/dL (1.8-2.4) Assessment and Plan Assessmemt and Plan Problems Medical Problems: (1) Exertional dyspnea Status: Acute Comment Review of Relevant I have reviewed the following items thu (where applicable) has been applied. Labs Laboratory Tests Test 09/04/19 14:25 09/04/19 20:55 09/05/19 03:53 09/05/19 03:55 Heparin Anti-Xa Act, Unfractionated 0.66 IU/mL (0.30-0.70) 0.44 IU/mL (0.30-0.70) 0.43 IU/mL (0.30-0.70) Troponin I Quantitative < 0.017 ng/mL (0.000-0.055) Sodium Level 139 mmol/L (136-145) Potassium Level 4.2 mmol/L (3.5-5.1) Chloride Level 103 mmol/L (98-107) Carbon Dioxide Level 27 mmol/L (21-32) Anion Gap 9 (6-14) Blood Urea Nitrogen 22 mg/dL (8-26) Creatinine 1.4 mg/dL (0.7-1.3) Estimated GFR (Cockcroft-Gault) 50.1 BUN/Creatinine Ratio 16 (6-20) Glucose Level 133 mg/dL (70-99) Calcium Level 8.7 mg/dL (8.5-10.1) Total Bilirubin 0.2 mg/dL (0.2-1.0) Aspartate Amino Transf (AST/SGOT) 30 U/L (15-37) Alanine Aminotransferase (ALT/SGPT) 68 U/L (16-63) Alkaline Phosphatase 89 U/L (46-116) Total Protein 6.8 g/dL (6.4-8.2) Albumin 3.0 g/dL (3.4-5.0) Albumin/Globulin Ratio 0.8 (1.0-1.7) White Blood Count 9.4 x10^3/uL (4.0-11.0) Red Blood Count 5.23 x10^6/uL (4.30-5.70) Hemoglobin 15.7 g/dL (13.0-17.5) Hematocrit 48.0 % (39.0-53.0) Mean Corpuscular Volume 92 fL (79-100) Mean Corpuscular Hemoglobin 30 pg (25-35) Mean Corpuscular Hemoglobin Concent 33 g/dL (31-37) Red Cell Distribution Width 16.4 % (11.5-14.5) Platelet Count 183 x10^3/uL (140-400) Neutrophils (%) (Auto) 66 % (31-73) Lymphocytes (%) (Auto) 26 % (24-48) Monocytes (%) (Auto) 7 % (0-9) Eosinophils (%) (Auto) 1 % (0-3) Basophils (%) (Auto) 0 % (0-3) Neutrophils # (Auto) 6.2 x10^3/uL (1.8-7.7) Lymphocytes # (Auto) 2.4 x10^3/uL (1.0-4.8) Monocytes # (Auto) 0.7 x10^3/uL (0.0-1.1) Eosinophils # (Auto) 0.1 x10^3/uL (0.0-0.7) Basophils # (Auto) 0.0 x10^3/uL (0.0-0.2) Test 09/06/19 05:00 White Blood Count 8.6 x10^3/uL (4.0-11.0) Red Blood Count 5.20 x10^6/uL (4.30-5.70) Hemoglobin 15.6 g/dL (13.0-17.5) Hematocrit 47.7 % (39.0-53.0) Mean Corpuscular Volume 92 fL (79-100) Mean Corpuscular Hemoglobin 30 pg (25-35) Mean Corpuscular Hemoglobin Concent 33 g/dL (31-37) Red Cell Distribution Width 16.1 % (11.5-14.5) Platelet Count 175 x10^3/uL (140-400) Heparin Anti-Xa Act, Unfractionated 0.44 IU/mL (0.30-0.70) Sodium Level 139 mmol/L (136-145) Potassium Level 4.4 mmol/L (3.5-5.1) Chloride Level 105 mmol/L (98-107) Carbon Dioxide Level 29 mmol/L (21-32) Anion Gap 5 (6-14) Blood Urea Nitrogen 23 mg/dL (8-26) Creatinine 1.4 mg/dL (0.7-1.3) Estimated GFR (Cockcroft-Gault) 50.1 Glucose Level 117 mg/dL (70-99) Calcium Level 8.8 mg/dL (8.5-10.1) Magnesium Level 2.1 mg/dL (1.8-2.4) Laboratory Tests Test 09/06/19 05:00 White Blood Count 8.6 x10^3/uL (4.0-11.0) Red Blood Count 5.20 x10^6/uL (4.30-5.70) Hemoglobin 15.6 g/dL (13.0-17.5) Hematocrit 47.7 % (39.0-53.0) Mean Corpuscular Volume 92 fL (79-100) Mean Corpuscular Hemoglobin 30 pg (25-35) Mean Corpuscular Hemoglobin Concent 33 g/dL (31-37) Red Cell Distribution Width 16.1 % (11.5-14.5) Platelet Count 175 x10^3/uL (140-400) Heparin Anti-Xa Act, Unfractionated 0.44 IU/mL (0.30-0.70) Sodium Level 139 mmol/L (136-145) Potassium Level 4.4 mmol/L (3.5-5.1) Chloride Level 105 mmol/L (98-107) Carbon Dioxide Level 29 mmol/L (21-32) Anion Gap 5 (6-14) Blood Urea Nitrogen 23 mg/dL (8-26) Creatinine 1.4 mg/dL (0.7-1.3) Estimated GFR (Cockcroft-Gault) 50.1 Glucose Level 117 mg/dL (70-99) Calcium Level 8.8 mg/dL (8.5-10.1) Magnesium Level 2.1 mg/dL (1.8-2.4) Medications Current Medications Acetaminophen (Tylenol Supp) 650 mg PRN Q4HRS PRN DC TEMP OVER 100.4F OR MILD PAIN; Start 09/03/19 at 12:45 Al Hydroxide/Mg Hydroxide (Mylanta Plus Xs) 30 ml PRN DAILY PRN PO HEARTBURN / GAS; Start 09/03/19 at 12:45 Docusate Sodium (Colace) 100 mg PRN BID PRN PO HARD STOOLS; Start 09/03/19 at 12:45 Albuterol Sulfate (Ventolin Neb Soln) 2.5 mg PRN Q4HRS PRN NEB SHORTNESS OF BREATH; Start 09/03/19 at 12:45 Guaifenesin (Robitussin) 200 mg PRN Q4HRS PRN PO COUGH; Start 09/03/19 at 12:45 Lorazepam (Ativan) 0.5 mg PRN Q4HRS PRN PO ANXIETY / AGITATION; Start 09/03/19 at 12:45 Heparin Sodium/ Dextrose 250 ml @ 10 mls/hr CONT PRN IV PER PROTOCOL Last admi nistered on 09/05/19at 11:24; Start 09/03/19 at 12:45; Stop 09/06/19 at 08:03; Status DC Heparin Sodium (Porcine) (Heparin Sodium) 2,800 unit PRN Q6HRS PRN IV FOR UFH LEVEL LESS THAN 0.2 Last administered on 09/03/19at 22:10; Start 09/03/19 at 12:45; Stop 09/06/19 at 10:14; Status DC Allopurinol (Zyloprim) 300 mg QEVNG PO Last administered on 09/05/19at 17:19; Start 09/03/19 at 18:00 Amlodipine Besylate (Norvasc) 10 mg DAILY PO Last administered on 09/06/19at 08:29; Start 09/03/19 at 13:00 Aspirin (Ecotrin) 81 mg DAILYWBKFT PO Last administered on 09/06/19at 08:29; Start 09/04/19 at 08:00 Carvedilol (Coreg) 12.5 mg BIDWMEALS PO ; Start 09/03/19 at 17:00; Stop 09/03/19 at 15:38; Status DC Clopidogrel Bisulfate (Plavix) 75 mg DAILYWBKFT PO Last administered on 09/06/19at 08:29; Start 09/04/19 at 08:00 Hydrochlorothiazide (Hydrodiuril) 25 mg DAILY PO ; Start 09/03/19 at 13:00; Stop 09/04/19 at 19:01; Status DC Isosorbide Mononitrate (Imdur) 60 mg DAILY PO Last administered on 09/06/19at 08:29; Start 09/03/19 at 13:00 Atorvastatin Calcium (Lipitor) 10 mg QHS PO Last administered on 09/05/19at 20:22; Start 09/03/19 at 21:00; Stop 09/06/19 at 10:45; Status DC Carvedilol (Coreg) 25 mg BIDWMEALS PO Last administered on 09/06/19at 08:30; Start 09/03/19 at 17:00 Hydroxyzine HCl (Atarax) 25 mg PRN Q8HRS PRN PO ITCHING Last administered on 09/04/19at 08:26; Start 09/03/19 at 15:45 Magnesium Sulfate/ Dextrose 100 ml @ 100 mls/hr 1X ONCE IV Last administered on 09/03/19at 16:32; Start 09/03/19 at 15:45; Stop 09/03/19 at 16:44; Status DC Morphine Sulfate (Morphine Sulfate) 2 mg PRN Q2HR PRN IV MODERATE TO SEVERE PAIN; Start 09/04/19 at 13:00 Lidocaine HCl (Xylocaine-Mpf 1% 2ml Vial) 2 ml STK-MED ONCE .ROUTE ; Start 09/05/19 at 12:08; Stop 09/05/19 at 12:09; Status DC Iodixanol (Visipaque 320) 100 ml STK-MED ONCE .ROUTE ; Start 09/05/19 at 12:09; Stop 09/05/19 at 12:09; Status DC Heparin Sodium/ Sodium Chloride 1,000 ml @ As Directed STK-MED ONCE .ROUTE ; Start 09/05/19 at 12:09; Stop 09/05/19 at 12:09; Status DC Fentanyl Citrate (Fentanyl 2ml Vial) 100 mcg STK-MED ONCE .ROUTE ; Start 09/05/19 at 12:38; Stop 09/05/19 at 12:38; Status DC Midazolam HCl (Versed) 2 mg STK-MED ONCE .ROUTE ; Start 09/05/19 at 12:38; Stop 09/05/19 at 12:38; Status DC Heparin Sodium (Porcine) (Heparin Sodium) 10,000 unit STK-MED ONCE .ROUTE ; Start 09/05/19 at 12:38; Stop 09/05/19 at 12:38; Status DC Verapamil HCl (Verapamil) 5 mg STK-MED ONCE .ROUTE ; Start 09/05/19 at 12:38; Stop 09/05/19 at 12:38; Status DC Nitroglycerin (Nitroglycerin) 200 mcg STK-MED ONCE .ROUTE ; Start 09/05/19 at 12:39; Stop 09/05/19 at 12:39; Status DC Nitroglycerin (Nitroglycerin) 200 mcg 1X ONCE IART Last administered on 09/05/19at 13:09; Start 09/05/19 at 13:00; Stop 09/05/19 at 13:02; Status DC Verapamil HCl (Verapamil) 2.5 mg 1X ONCE IART Last administered on 09/05/19at 13:09; Start 09/05/19 at 13:00; Stop 09/05/19 at 13:02; Status DC Heparin Sodium (Porcine) (Heparin Sodium) 2,500 unit 1X ONCE IART Last administered on 09/05/19at 13:10; Start 09/05/19 at 13:00; Stop 09/05/19 at 13:02; Status DC Heparin Sodium/ Sodium Chloride (HEPARIN for ARTERIAL LINE FLUSH) 1,000 unit 1X ONCE IART Last administered on 09/05/19at 13:07; Start 09/05/19 at 13:00; Stop 09/05/19 at 13:02; Status DC Heparin Sodium/ Sodium Chloride (HEPARIN for ARTERIAL LINE FLUSH) 1,000 unit 1X ONCE IART Last administered on 09/05/19at 13:07; Start 09/05/19 at 13:00; Stop 09/05/19 at 13:02; Status DC Midazolam HCl (Versed) 2 mg 1X ONCE IV Last administered on 09/05/19at 13:08; Start 09/05/19 at 13:00; Stop 09/05/19 at 13:02; Status DC Fentanyl Citrate (Fentanyl 2ml Vial) 100 mcg 1X ONCE IV Last administered on 09/05/19at 13:09; Start 09/05/19 at 13:00; Stop 09/05/19 at 13:02; Status DC Iodixanol (Visipaque 320) 100 ml 1X ONCE IART Last administered on 09/05/19at 13:08; Start 09/05/19 at 13:00; Stop 09/05/19 at 13:02; Status DC Lidocaine HCl (Xylocaine-Mpf 1% 2ml Vial) 2 ml 1X ONCE INJ Last administered on 09/05/19at 13:07; Start 09/05/19 at 13:00; Stop 09/05/19 at 13:02; Status DC Sodium Chloride 1,000 ml @ 100 mls/hr Q10H IV Last administered on 09/05/19at 20:23; Start 09/05/19 at 13:45 Psyllium Hydrophilic Mucilloid (Metamucil Fiber Packet) 1 pkt DAILY PO ; Start 09/05/19 at 15:00 Polyethylene Glycol (miraLAX PACKET) 17 gm DAILY PO ; Start 09/05/19 at 15:00 Iohexol (Omnipaque 350 Mg/ml) 80 ml 1X ONCE IV Last administered on 09/06/19at 07:15; Start 09/06/19 at 07:15; Stop 09/06/19 at 07:16; Status DC Atorvastatin Calcium (Lipitor) 40 mg QHS PO ; Start 09/06/19 at 21:00 Active Scripts Active Clopidogrel (Clopidogrel Bisulfate) 75 Mg Tablet 75 Mg PO DAILYWBKFT Aspirin Ec (Aspirin) 81 Mg Tablet. 81 Mg PO DAILYWBKFT Reported Hydralazine Hcl 50 Mg Tablet 1 Tab PO BID Carvedilol 25 Mg Tablet 25 Mg PO BIDWMEALS Allopurinol 300 Mg Tablet 1 Tab PO QEVNG Pravastatin Sodium 40 Mg Tablet 1 Tab PO QHS Hydrochlorothiazide Tablet (Hydrochlorothiazide) 25 Mg Tablet 1 Tab PO DAILY Isosorbide Mononitrate Er (Isosorbide Mononitrate) 60 Mg Tab.er.24h 1 Tab PO DAILY Amlodipine Besylate 10 Mg Tablet 10 Mg PO DAILY Vitals/I & O Vital Sign - Last 24 Hours 09/05/19 09/05/19 09/05/19 09/05/19 13:02 13:09 13:09 13:50 Pulse 67 67 Resp 24 24 20 B/P (MAP) 112/73 Pulse Ox 96 96 96 O2 Delivery Nasal Cannula Nasal Cannula Room Air O2 Flow Rate 2.0 2.0 09/05/19 09/05/19 09/05/19 09/05/19 13:50 14:05 14:30 14:45 Pulse 64 64 68 68 Resp 18 18 18 18 B/P (MAP) 131/65 (87) 128/63 (84) 132/79 (96) 131/80 (97) Pulse Ox 95 95 95 95 O2 Delivery Room Air Room Air Room Air Room Air 09/05/19 09/05/19 09/05/19 09/05/19 15:00 16:25 19:12 19:29 Temp 98.2 98.0 98.2 98.0 Pulse 58 58 69 Resp 18 20 B/P (MAP) 132/79 (96) 132/79 106/60 (75) Pulse Ox 92 97 O2 Delivery Room Air Room Air Room Air 09/05/19 09/06/19 09/06/19 09/06/19 23:08 03:12 08:00 08:29 Temp 98.5 98.4 98.5 98.4 Pulse 69 68 68 Resp 17 18 B/P (MAP) 121/54 (76) 118/56 (76) 118/56 Pulse Ox 94 93 O2 Delivery Nasal Cannula Nasal Cannula Room Air O2 Flow Rate 2.0 2.0 09/06/19 09/06/19 09/06/19 08:29 08:30 11:00 Temp 98.2 98.2 Pulse 68 68 66 Resp 18 B/P (MAP) 118/56 118/56 104/53 (70) Pulse Ox 93 O2 Delivery Nasal Cannula O2 Flow Rate 2.0 Intake and Output 09/05/19 09/05/19 09/06/19 14:59 22:59 06:59 Intake Total 0 ml 1050 ml 1700 ml Output Total 450 ml 300 ml 1000 ml Balance -450 ml 750 ml 700 ml RAVENFEHenrry,WISAM Hill MD Sep 06, 2019 12:13
[2019-09-06 15:00] VITALS: BP 106/54
[2019-09-06] MEDS: ALLOPURINOL 300 MG TABLET. PO SCH (17:02)
[2019-09-06 19:33] VITALS: BP 121/80
[2019-09-06] MEDS ORDERED: ATORVASTATIN CALCIUM 10 MG TABLET. PO SCH (21:00)
[2019-09-06] MEDS ORDERED: ATORVASTATIN CALCIUM 40 MG TABLET. PO SCH (21:41)
[2019-09-06 22:41] VITALS: BP 165/62
[2019-09-07 02:44] VITALS: BP 152/67
[2019-09-07 06:36] VITALS: BP 164/70
--- NOTE | 2019-09-07 07:51 | CARD ---
MR#: [id number] Date of Study: 09/06/2019 Ordering Physician: JEFFREY HERNANDEZ, Referring Physician: JEFFREY HERNANDEZ, Tech: Bhavna Garcia APPROVED REPORT EXAM: Two-dimensional and M-mode echocardiogram with Doppler, color Doppler with contrast. Other Information Quality : AverageHR: 60bpm INDICATION Dyspnea Echo Enhancing Agent Indication: Rule Out Septal Defect Agent/Amount Used: Agitated Saline 10mL 2D DIMENSIONS Left Atrium(2D)3.1 (1.6-4.0cm)IVSd1.9 (0.7-1.1cm) Aortic Root(2D)3.1 (2.0-3.7cm)LVDd4.6 (3.9-5.9cm) PWd1.3 (0.7-1.1cm)LVDs2.4 (2.5-4.0cm) FS (%) 48.5 %SV77.6 ml LVEF(%)79.9 (>50%) Aortic Valve AoV Peak Mookie.165.5cm/sAoV VTI35.3cm AO Peak GR.11.0mmHgLVOT VTI 24.78cm AO Mean GR.7mmHg Mitral Valve MV E Ascgwskq80.1cm/sMV E Peak Gr.2mmHg MV DECEL [id number] A Rjbucmra30.1cm/s MV E Mean Gr.1mmHgE/A Ratio1.1 LEFT VENTRICLE The left ventricle is normal size. There is moderate concentric left ventricular hypertrophy. The lef t ventricular systolic function is normal. The Ejection Fraction is 55-60%. There is normal LV segmen sherrell wall motion. Transmitral Doppler flow pattern is Grade II-pseudonormal filling dynamics. RIGHT VENTRICLE The right ventricle is normal size. There is normal right ventricular wall thickness. The right ventr icular systolic function is normal. ATRIA The left atrium size is normal. The right atrium size is normal. The interatrial septum is intact wit h no evidence for an atrial septal defect or patent foramen ovale as noted on 2-D or Doppler imaging. AORTIC VALVE The aortic valve is thickened but opens well. Doppler and Color Flow revealed no significant aortic r egurgitation. There is no significant aortic valvular stenosis. MITRAL VALVE The mitral valve is normal in structure and function. There is no evidence of mitral valve prolapse. There is no mitral valve stenosis. Doppler and Color-flow revealed trace mitral regurgitation. TRICUSPID VALVE The tricuspid valve is not well visualized. Doppler and Color Flow revealed no tricuspid valve regurg itation noted. There is no tricuspid valve stenosis. PULMONIC VALVE The pulmonic valve is not well visualized. Doppler and Color Flow revealed trace pulmonic valvular re gurgitation. GREAT VESSELS The aortic root is normal in size. The IVC is normal in size and collapses >50% with inspiration. PERICARDIAL EFFUSION There is no evidence of significant pericardial effusion. Critical Notification Critical Value: No <Conclusion> The left ventricular systolic function is normal. The Ejection Fraction is 55-60%. There is normal LV segmental wall motion. Transmitral Doppler flow pattern is Grade II-pseudonormal filling dynamics. Trace mitral regurgitation. There is no evidence of significant pericardial effusion. Signed by : Jt Craft, Electronically Approved : 09/07/2019 07:50:53
--- NOTE | 2019-09-07 08:11 | PDOC ---
PROGRESS NOTES Chief Complaint Chief Complaint A/P: Congestive heart failure seems to be systolic or diastolic dysfunction with acute exacerbation the present time History of carotid artery stenosis History of CAD status post PCI and stenting currently asymptomatic with dyspnea but no anginal type of symptoms History of essential hypertension Chronic kidney disease stage III History of dyslipidemia Obesity with a BMI of 33 Diabetes mellitus type 2 FEN - Cardiac PPX - heparin FULL CODE Dispo - inpatient for coronary syndrome Total time today is 30 minutes with greater than 50% in counseling and coordination of care most of which in discussion with patient. History of Present Illness History of Present Illness Mr Weinstein is a 69 yo M w/ PMHx CVA x2, CAD, DVT, presumptive COPD, HTN, ex- smoker (quit 2013 after 35 years) who presented with increasing dyspnea for the last 2 weeks prior to hospitalization along with chest pains. He was taken to the cardiac catheterization lab and was found to have multivessel coronary artery disease including left main disease. His left ventricular end diastolic pressure was 7. He denies any fever, chills, cough, congestion. He does not believe he has been tested for sleep apnea in the past. He denies chest pain. His troponin is normal and EKG is negative for any acute change. 09/04: To cardiac cath this morning with left main disease and elevated right sided pressures. Still short of breath. 09/05: Still with dyspnea today. CTPA with embolic disease or interstitial lung disease. D/w patient that with no clear pulmonary source identified, evaluation for CABG versus high risk PCI is appropriate. He is really asking to go home. Remained short of breath overnight, awaiting CT surgery evaluation. Normal 6 minute walk off O2. No Chest pain. Plans for return for high risk PCI vs CABG. Vitals Vitals Vital Signs Date Time Temp Pulse Resp B/P (MAP) Pulse Ox O2 Delivery O2 Flow Rate FiO2 09/07/19 06:36 98.9 75 18 164/70 (101) 93 Nasal Cannula 2.0 98.9 Physical Exam General: Alert, Oriented X3, Cooperative, mild distress Heart: Regular rate Lungs: Other (decrease bases) Abdomen: Normal bowel sounds Labs LABS Laboratory Tests Test 09/07/19 04:45 Heparin Anti-Xa Act, Unfractionated < 0.10 IU/mL (0.30-0.70) Assessment and Plan Assessmemt and Plan Problems Medical Problems: (1) Exertional dyspnea Status: Acute Comment Review of Relevant I have reviewed the following items thu (where applicable) has been applied. Labs Laboratory Tests Test 09/06/19 05:00 09/07/19 04:45 White Blood Count 8.6 x10^3/uL (4.0-11.0) Red Blood Count 5.20 x10^6/uL (4.30-5.70) Hemoglobin 15.6 g/dL (13.0-17.5) Hematocrit 47.7 % (39.0-53.0) Mean Corpuscular Volume 92 fL (79-100) Mean Corpuscular Hemoglobin 30 pg (25-35) Mean Corpuscular Hemoglobin Concent 33 g/dL (31-37) Red Cell Distribution Width 16.1 % (11.5-14.5) Platelet Count 175 x10^3/uL (140-400) Heparin Anti-Xa Act, Unfractionated 0.44 IU/mL (0.30-0.70) < 0.10 IU/mL (0.30-0.70) Sodium Level 139 mmol/L (136-145) Potassium Level 4.4 mmol/L (3.5-5.1) Chloride Level 105 mmol/L (98-107) Carbon Dioxide Level 29 mmol/L (21-32) Anion Gap 5 (6-14) Blood Urea Nitrogen 23 mg/dL (8-26) Creatinine 1.4 mg/dL (0.7-1.3) Estimated GFR (Cockcroft-Gault) 50.1 Glucose Level 117 mg/dL (70-99) Calcium Level 8.8 mg/dL (8.5-10.1) Magnesium Level 2.1 mg/dL (1.8-2.4) Laboratory Tests Test 09/07/19 04:45 Heparin Anti-Xa Act, Unfractionated < 0.10 IU/mL (0.30-0.70) Medications Current Medications Acetaminophen (Tylenol Supp) 650 mg PRN Q4HRS PRN CO TEMP OVER 100.4F OR MILD PAIN; Start 09/03/19 at 12:45 Al Hydroxide/Mg Hydroxide (Mylanta Plus Xs) 30 ml PRN DAILY PRN PO HEARTBURN / GAS; Start 09/03/19 at 12:45 Docusate Sodium (Colace) 100 mg PRN BID PRN PO HARD STOOLS; Start 09/03/19 at 12:45 Albuterol Sulfate (Ventolin Neb Soln) 2.5 mg PRN Q4HRS PRN NEB SHORTNESS OF BREATH; Start 09/03/19 at 12:45 Guaifenesin (Robitussin) 200 mg PRN Q4HRS PRN PO COUGH; Start 09/03/19 at 12:45 Lorazepam (Ativan) 0.5 mg PRN Q4HRS PRN PO ANXIETY / AGITATION; Start 09/03/19 at 12:45 Heparin Sodium/ Dextrose 250 ml @ 10 mls/hr CONT PRN IV PER PROTOCOL Last administered on 09/05/19at 11:24; Start 09/03/19 at 12:45; Stop 09/06/19 at 08:03; Status DC Heparin Sodium (Porcine) (Heparin Sodium) 2,800 unit PRN Q6HRS PRN IV FOR UFH LEVEL LESS THAN 0.2 Last administered on 09/03/19at 22:10; Start 09/03/19 at 12:45; Stop 09/06/19 at 10:14; Status DC Allopurinol (Zyloprim) 300 mg QEVNG PO Last administered on 09/06/19at 17:02; Start 09/03/19 at 18:00 Amlodipine Besylate (Norvasc) 10 mg DAILY PO Last administered on 09/06/19at 08:29; Start 09/03/19 at 13:00 Aspirin (Ecotrin) 81 mg DAILYWBKFT PO Last administered on 09/06/19at 08:29; Start 09/04/19 at 08:00 Carvedilol (Coreg) 12.5 mg BIDWMEALS PO ; Start 09/03/19 at 17:00; Stop 09/03/19 at 15:38; Status DC Clopidogrel Bisulfate (Plavix) 75 mg DAILYWBKFT PO Last administered on at 08:29; Start 09/04/19 at 08:00 Hydrochlorothiazide (Hydrodiuril) 25 mg DAILY PO ; Start 09/03/19 at 13:00; Stop 09/04/19 at 19:01; Status DC Isosorbide Mononitrate (Imdur) 60 mg DAILY PO Last administered on 09/06/19at 08:29; Start 09/03/19 at 13:00 Atorvastatin Calcium (Lipitor) 10 mg QHS PO Last administered on 09/05/19at 20:22; Start 09/03/19 at 21:00; Stop 09/06/19 at 10:45; Status DC Carvedilol (Coreg) 25 mg BIDWMEALS PO Last administered on 09/06/19at 17:02; Start 09/03/19 at 17:00 Hydroxyzine HCl (Atarax) 25 mg PRN Q8HRS PRN PO ITCHING Last administered on 09/04/19at 08:26; Start 09/03/19 at 15:45 Magnesium Sulfate/ Dextrose 100 ml @ 100 mls/hr 1X ONCE IV Last administered on 09/03/19at 16:32; Start 09/03/19 at 15:45; Stop 09/03/19 at 16:44; Status DC Morphine Sulfate (Morphine Sulfate) 2 mg PRN Q2HR PRN IV MODERATE TO SEVERE PAIN; Start 09/04/19 at 13:00 Lidocaine HCl (Xylocaine-Mpf 1% 2ml Vial) 2 ml STK-MED ONCE .ROUTE ; Start 09/05/19 at 12:08; Stop 09/05/19 at 12:09; Status DC Iodixanol (Visipaque 320) 100 ml STK-MED ONCE .ROUTE ; Start 09/05/19 at 12:09; Stop 09/05/19 at 12:09; Status DC Heparin Sodium/ Sodium Chloride 1,000 ml @ As Directed STK-MED ONCE .ROUTE ; Start 09/05/19 at 12:09; Stop 09/05/19 at 12:09; Status DC Fentanyl Citrate (Fentanyl 2ml Vial) 100 mcg STK-MED ONCE .ROUTE ; Start 09/05/19 at 12:38; Stop 09/05/19 at 12:38; Status DC Midazolam HCl (Versed) 2 mg STK-MED ONCE .ROUTE ; Start 09/05/19 at 12:38; Stop 09/05/19 at 12:38; Status DC Heparin Sodium (Porcine) (Heparin Sodium) 10,000 unit STK-MED ONCE .ROUTE ; Start 09/05/19 at 12:38; Stop 09/05/19 at 12:38; Status DC Verapamil HCl (Verapamil) 5 mg STK-MED ONCE .ROUTE ; Start 09/05/19 at 12:38; Stop 09/05/19 at 12:38; Status DC Nitroglycerin (Nitroglycerin) 200 mcg STK-MED ONCE .ROUTE ; Start 09/05/19 at 12:39; Stop 09/05/19 at 12:39; Status DC Nitroglycerin (Nitroglycerin) 200 mcg 1X ONCE IART Last administered on at 13:09; Start 09/05/19 at 13:00; Stop 09/05/19 at 13:02; Status DC Verapamil HCl (Verapamil) 2.5 mg 1X ONCE IART Last administered on 09/05/19at 13:09; Start 09/05/19 at 13:00; Stop 09/05/19 at 13:02; Status DC Heparin Sodium (Porcine) (Heparin Sodium) 2,500 unit 1X ONCE IART Last administered on 09/05/19at 13:10; Start 09/05/19 at 13:00; Stop 09/05/19 at 13:02; Status DC Heparin Sodium/ Sodium Chloride (HEPARIN for ARTERIAL LINE FLUSH) 1,000 unit 1X ONCE IART Last administered on 09/05/19at 13:07; Start 09/05/19 at 13:00; Stop 09/05/19 at 13:02; Status DC Heparin Sodium/ Sodium Chloride (HEPARIN for ARTERIAL LINE FLUSH) 1,000 unit 1X ONCE IART Last administered on 09/05/19at 13:07; Start 09/05/19 at 13:00; Stop 09/05/19 at 13:02; Status DC Midazolam HCl (Versed) 2 mg 1X ONCE IV Last administered on 09/05/19at 13:08; Start 09/05/19 at 13:00; Stop 09/05/19 at 13:02; Status DC Fentanyl Citrate (Fentanyl 2ml Vial) 100 mcg 1X ONCE IV Last administered on 09/05/19at 13:09; Start 09/05/19 at 13:00; Stop 09/05/19 at 13:02; Status DC Iodixanol (Visipaque 320) 100 ml 1X ONCE IART Last administered on 09/05/19at 13:08; Start 09/05/19 at 13:00; Stop 09/05/19 at 13:02; Status DC Lidocaine HCl (Xylocaine-Mpf 1% 2ml Vial) 2 ml 1X ONCE INJ Last administered on 09/05/19at 13:07; Start 09/05/19 at 13:00; Stop 09/05/19 at 13:02; Status DC Sodium Chloride 1,000 ml @ 100 mls/hr Q10H IV Last administered on 09/05/19at 20:23; Start 09/05/19 at 13:45; Stop 09/06/19 at 17:01; Status DC Psyllium Hydrophilic Mucilloid (Metamucil Fiber Packet) 1 pkt DAILY PO ; Start 09/05/19 at 15:00 Polyethylene Glycol (miraLAX PACKET) 17 gm DAILY PO ; Start 09/05/19 at 15:00 Iohexol (Omnipaque 350 Mg/ml) 80 ml 1X ONCE IV Last administered on 09/06/19at 07:15; Start 09/06/19 at 07:15; Stop 09/06/19 at 07:16; Status DC Atorvastatin Calcium (Lipitor) 40 mg QHS PO ; Start 09/06/19 at 21:00; Stop 09/06/19 at 21:41; Status DC Atorvastatin Calcium (Lipitor) 40 mg QHS PO Last administered on 09/06/19at 21:46; Start 09/06/19 at 21:41 Active Scripts Active Clopidogrel (Clopidogrel Bisulfate) 75 Mg Tablet 75 Mg PO DAILYWBKFT Aspirin Ec (Aspirin) 81 Mg Tablet.dr 81 Mg PO DAILYWBKFT Reported Hydralazine Hcl 50 Mg Tablet 1 Tab PO BID Carvedilol 25 Mg Tablet 25 Mg PO BIDWMEALS Allopurinol 300 Mg Tablet 1 Tab PO QEVNG Pravastatin Sodium 40 Mg Tablet 1 Tab PO QHS Hydrochlorothiazide Tablet (Hydrochlorothiazide) 25 Mg Tablet 1 Tab PO DAILY Isosorbide Mononitrate Er (Isosorbide Mononitrate) 60 Mg Tab.er.24h 1 Tab PO DAILY Amlodipine Besylate 10 Mg Tablet 10 Mg PO DAILY Vitals/I & O Vital Sign - Last 24 Hours 09/06/19 09/06/19 09/06/19 09/06/19 08:29 08:29 08:30 11:00 Temp 98.2 98.2 Pulse 68 68 68 66 Resp 18 B/P (MAP) 118/56 118/56 118/56 104/53 (70) Pulse Ox 93 O2 Delivery Nasal Cannula O2 Flow Rate 2.0 09/06/19 09/06/19 09/06/19 09/06/19 15:00 17:02 19:33 20:00 Temp 97.8 98.4 97.8 98.4 Pulse 69 69 70 Resp 18 18 B/P (MAP) 106/54 (71) 106/54 121/80 (94) Pulse Ox 93 92 O2 Delivery Nasal Cannula Nasal Cannula Room Air O2 Flow Rate 2.0 2.0 09/06/19 09/07/19 09/07/19 22:41 02:44 06:36 Temp 98.5 98.1 98.9 98.5 98.1 98.9 Pulse 62 77 75 Resp 18 18 18 B/P (MAP) 165/62 (96) 152/67 (95) 164/70 (101) Pulse Ox 94 91 93 O2 Delivery Nasal Cannula Nasal Cannula Nasal Cannula O2 Flow Rate 2.0 2.0 2.0 Intake and Output 09/06/19 09/06/19 09/07/19 15:00 23:00 07:00 Intake Total 0 ml 0 ml Balance 0 ml 0 ml WISAM CLINE MD Sep 07, 2019 08:11
[2019-09-07] MEDS: PSYLLIUM HUSK (SUGAR FREE) 1 PKT PACKET PO SCH (09:00)
[2019-09-07] MEDS: POLYETHYLENE GLYCOL 3350 17 GM PACKET. PO SCH (09:00)
[2019-09-07] MEDS: CLOPIDOGREL BISULFATE 75 MG TABLET PO SCH (09:06)
[2019-09-07] MEDS: ASPIRIN ENTERIC COATED 81 MG TABLET.DR. PO SCH (09:06)
[2019-09-07] MEDS: ISOSORBIDE MONONITRATE ER 30 MG TAB.ER.24H PO SCH (09:07)
[2019-09-07] MEDS: amLODIPine BESYLATE 10 MG TABLET PO SCH (09:07)
[2019-09-07] MEDS: CARVEDILOL 12.5 MG TABLET. PO SCH (09:07)
[2019-09-07 10:18] VITALS: BP 138/83
--- NOTE | 2019-09-07 10:34 | NUR ---
SS following up with discharge planning. SS reviewed pt chart and discussed with pt RN. Pt is currently on room air. Per RN, pt will discharge today to home with self care and follow up with cardiac needs as outpatient. SS will continue to follow for discharge planning.
--- NOTE | 2019-09-07 10:39 | PDOC ---
JEFFREY HERNANDEZ APRN 09/07/19 1039: CARDIO Progress Notes Date and Time Date of Service 09/07/19 Time of Evaluation 1020 Subjective Subjective: No Chest Pain, No shortness of breath, No Palpitations Vitals Vitals Vital Signs Date Time Temp Pulse Resp B/P (MAP) Pulse Ox O2 Delivery O2 Flow Rate FiO2 09/07/19 10:18 98.0 69 18 138/83 (101) 96 Nasal Cannula 2.0 98.0 Weight Weight [ ] Input and Output Intake and Output Intake and Output 09/07/19 07:00 Intake Total 0 ml Balance 0 ml Intake Oral 0 ml Laboratory Labs Laboratory Tests Test 09/07/19 04:45 Heparin Anti-Xa Act, Unfractionated < 0.10 IU/mL (0.30-0.70) Physical Exam HEENT: Neck Supple W Full Motion Chest: Symmetric LUNGS: Clear to Auscultation Heart: S1S2, RRR Abdomen: Soft N/T Extremities: No Edema Neurology: alert, oriented, follow commands Assessment Assessment 1. CAD; s/p previous PCI/BMS to RCA. Cath noted with 3VD with LM involvement. Evaluated by CTS. Echo with preserved LV systolic function. No evidence of intracardiac shunting. 2. Acute hypoxic respiratory failure, SRIVASTAVA; CTA negative for PE. No pulm pathology to explains dyspnea, hypoxia 3. Hypertension 4. Hyperlipidemia 5. History of a CVA 6. H/o right ICA stenosis; s/p endarterectomy . Recommendations Secondary prevention; ASA/ Plavix, BB, Imdur, statin Patient would like to discharge and have a couple of days to make decision regarding CABG vs high-risk PCI. Okay to discharge form a CV standpoint. Will be in contact with patient early next week. Supportive care Justicifation of Admission Dx: Justifications for Admission: Justification of Admission Dx: Yes CHF: Hemodynamic Instability MANSI HART MD 09/07/19 0862: CARDIO Progress Notes Plan Plan Patient seen and examined. Agree with above nurse practitioner note. Patient discussed the revascularization plans with the surgeon. Currently he is deciding between CABG versus high risk PCI. Once he makes his decision with his family then we will plan is accordingly. Supportive care for now. We also discussed the possibility of just continued medical management although this is unlikely to improve his significant dyspnea which is related to his left main disease. JEFFREY HERNANDEZ APRN Sep 07, 2019 10:39 MANSI HART MD Sep 07, 2019 17:32
--- NOTE | 2019-09-07 11:19 | PDOC ---
PULMONARY PROGRESS NOTES Subjective no soa. no CP Vitals Vital Signs Date Time Temp Pulse Resp B/P (MAP) Pulse Ox O2 Delivery O2 Flow Rate FiO2 09/07/19 10:18 98.0 69 18 138/83 (101) 96 Room Air 98.0 ROS: No Chest Pain General: Alert, No acute distress Lungs: Other (decrease bases) Cardiovascular: S1 Abdomen: Soft Neuro Exam: Alert Extremities: No Edema Skin: Warm Labs Laboratory Tests Test 09/06/19 05:00 09/07/19 04:45 White Blood Count 8.6 x10^3/uL (4.0-11.0) Red Blood Count 5.20 x10^6/uL (4.30-5.70) Hemoglobin 15.6 g/dL (13.0-17.5) Hematocrit 47.7 % (39.0-53.0) Mean Corpuscular Volume 92 fL (79-100) Mean Corpuscular Hemoglobin 30 pg (25-35) Mean Corpuscular Hemoglobin Concent 33 g/dL (31-37) Red Cell Distribution Width 16.1 % (11.5-14.5) Platelet Count 175 x10^3/uL (140-400) Heparin Anti-Xa Act, Unfractionated 0.44 IU/mL (0.30-0.70) < 0.10 IU/mL (0.30-0.70) Sodium Level 139 mmol/L (136-145) Potassium Level 4.4 mmol/L (3.5-5.1) Chloride Level 105 mmol/L (98-107) Carbon Dioxide Level 29 mmol/L (21-32) Anion Gap 5 (6-14) Blood Urea Nitrogen 23 mg/dL (8-26) Creatinine 1.4 mg/dL (0.7-1.3) Estimated GFR (Cockcroft-Gault) 50.1 Glucose Level 117 mg/dL (70-99) Calcium Level 8.8 mg/dL (8.5-10.1) Magnesium Level 2.1 mg/dL (1.8-2.4) Laboratory Tests Test 09/07/19 04:45 Heparin Anti-Xa Act, Unfractionated < 0.10 IU/mL (0.30-0.70) Medications Active Scripts Medications Dose Route/Sig Max Daily Dose Days Date Category Hydralazine Hcl 50 Mg Tablet 1 Tab PO BID 6/6/20 Reported Carvedilol 25 Mg Tablet 25 Mg PO BIDWMEALS 09/03/19 Reported Clopidogrel (Clopidogrel Bisulfate) 75 Mg Tablet 75 Mg PO DAILYWBKFT 07/02/17 Rx Aspirin Ec (Aspirin) 81 Mg Tablet.dr 81 Mg PO DAILYWBKFT 07/02/17 Rx Allopurinol 300 Mg Tablet 1 Tab PO QEVNG 04/05/17 Reported Pravastatin Sodium 40 Mg Tablet 1 Tab PO QHS 04/05/17 Reported Hydrochlorothiazide Tablet (Hydrochlorothiazide) 25 Mg Tablet 1 Tab PO DAILY 04/05/17 Reported Isosorbide Mononitrate Er (Isosorbide Mononitrate) 60 Mg Tab.er.24h 1 Tab PO DAILY 04/05/17 Reported Amlodipine Besylate 10 Mg Tablet 10 Mg PO DAILY 04/05/17 Reported Impression . IMPRESSION: Exertional dyspnea and acute hypoxic respiratory failure since past 2 weeks along with chest pains. He is status post catheterization and was found to have multivessel coronary artery disease including left main disease. The patient's exertional dyspnea and hypoxia appears to be related to his coronary artery disease. No obvious pulmonary etiology. CTA chest with no PE.. No ILD on ct chest He has 35 years of tobacco use and likely has underlying COPD In addition, 20-pound weight gain in last 2-3 months is also another contributing factor to his exertional dyspnea. He also has highly suspected sleep apnea, for which he would need outpatient polysomnogram. Plan . 1. CTA chest reviewed. NO PE or ILD 2. Full PFTs as an outpatient. 3. Sleep study as an outpatient. 4. echocardiogram with no pulmonary hypertension. 5. Pt to decide about coronary artery bypass grafting.vs high risk PCI 6. Weight loss is strongly advised. 7. We will also need a 6-minute walk test. ok with TIMUR Pelayo MD Sep 07, 2019 11:19
--- NOTE | 2019-09-07 11:43 | PDOC3 ---
Discharge Summary Visit Information Date of Admission: Sep 03, 2019 Date of Discharge: Sep 07, 2019 Admitting Diagnosis: Dyspnea Final Diagnosis Problems Medical Problems: (1) Exertional dyspnea Status: Acute Brief Hospital Course Allergies Allergies Coded Allergies Type Severity Reaction Last Updated Verified lisinopril Allergy Severe swelling 06/23/16 Yes shellfish derived Allergy Severe swelling 06/23/16 Yes strawberry Allergy Severe swelling 06/23/16 Yes tomato Allergy Severe swelling 06/23/16 Yes Vital Signs Vital Signs Date Time Temp Pulse Resp B/P (MAP) Pulse Ox O2 Delivery O2 Flow Rate FiO2 09/07/19 10:18 98.0 69 18 138/83 (101) 96 Room Air 98.0 Lab Results Laboratory Tests Test 09/06/19 05:00 09/07/19 04:45 White Blood Count 8.6 x10^3/uL (4.0-11.0) Red Blood Count 5.20 x10^6/uL (4.30-5.70) Hemoglobin 15.6 g/dL (13.0-17.5) Hematocrit 47.7 % (39.0-53.0) Mean Corpuscular Volume 92 fL (79-100) Mean Corpuscular Hemoglobin 30 pg (25-35) Mean Corpuscular Hemoglobin Concent 33 g/dL (31-37) Red Cell Distribution Width 16.1 % (11.5-14.5) Platelet Count 175 x10^3/uL (140-400) Heparin Anti-Xa Act, Unfractionated 0.44 IU/mL (0.30-0.70) < 0.10 IU/mL (0.30-0.70) Sodium Level 139 mmol/L (136-145) Potassium Level 4.4 mmol/L (3.5-5.1) Chloride Level 105 mmol/L (98-107) Carbon Dioxide Level 29 mmol/L (21-32) Anion Gap 5 (6-14) Blood Urea Nitrogen 23 mg/dL (8-26) Creatinine 1.4 mg/dL (0.7-1.3) Estimated GFR (Cockcroft-Gault) 50.1 Glucose Level 117 mg/dL (70-99) Calcium Level 8.8 mg/dL (8.5-10.1) Magnesium Level 2.1 mg/dL (1.8-2.4) Laboratory Tests Test 09/07/19 04:45 Heparin Anti-Xa Act, Unfractionated < 0.10 IU/mL (0.30-0.70) Brief Hospital Course Mr Weinstein is a 69 yo M w/ PMHx CVA x2, CAD, DVT, presumptive COPD, HTN, ex- smoker (quit 2012 after 35 years) who presented with increasing dyspnea for the last 2 weeks prior to hospitalization along with chest pains. He was taken to the cardiac catheterization lab and was found to have multivessel coronary artery disease including left main disease. His left ventricular end diastolic pressure was 7. He denies any fever, chills, cough, congestion. He does not believe he has been tested for sleep apnea in the past. He denies chest pain. His troponin is normal and EKG is negative for any acute change. 09/04: To cardiac cath this morning with left main disease and elevated right sided pressures. Still short of breath. 09/05: Still with dyspnea today. CTPA with embolic disease or interstitial lung disease. D/w patient that with no clear pulmonary source identified, evaluation for CABG versus high risk PCI is appropriate. He is really asking to go home. Remained short of breath overnight, awaiting CT surgery evaluation. Normal 6 minute walk off O2. No Chest pain. Plans for return for high risk PCI vs CABG. Consults: Cardiology, CT surgery, Pulmonology Echo: The left ventricular systolic function is normal. The Ejection Fraction is 55-60%. There is normal LV segmental wall motion. Transmitral Doppler flow pattern is Grade II-pseudonormal filling dynamics. Trace mitral regurgitation. There is no evidence of significant pericardial effusion. Problem list: Congestive heart failure seems to be diastolic dysfunction with acute exacerbation the present time History of carotid artery stenosis History of CAD status post PCI and stenting currently asymptomatic with dyspnea but no anginal type of symptoms History of essential hypertension Chronic kidney disease stage III History of dyslipidemia Obesity with a BMI of 33 Diabetes mellitus type 2 Total time today is 30 minutes with greater than 50% in counseling and coordination of care most of which in discussion with patient. Discharge Information Condition at Discharge: Improved Follow Up: Weeks Disposition/Orders: D/C to Home Scheduled Allopurinol (Allopurinol) 300 Mg Tablet, 1 TAB PO QEVNG, #30 Ref 5 (Reported) Entered as Reported by: STEFF YODER on 04/05/17 955 Last Action: Continued on 09/03/191236 by JENNIFER KEMP MD Amlodipine Besylate (Amlodipine Besylate) 10 Mg Tablet, 10 MG PO DAILY, (Reported) Entered as Reported by: STEFF YODER on 04/05/17955 Last Action: Continued on 09/03/191236 by JENNIFER KEMP MD Aspirin (Aspirin Ec) 81 Mg Tablet.dr, 81 MG PO DAILYWBKFT, #90 Ref 2 Prescribed by: KARUNA DE LUNA on 07/02/17 1009 Last Action: Continued on 09/03/191236 by JENNIFER KEMP MD Carvedilol (Carvedilol) 25 Mg Tablet, 25 MG PO BIDWMEALS for CARDIAC, (Reported) Entered as Reported by: NALINI LANDA on 09/03/19 150 Last Action: New Order on 09/03/19 150 by NALINI LANDA Clopidogrel Bisulfate (Clopidogrel) 75 Mg Tablet, 75 MG PO DAILYWBKFT, #30 Ref 3 Prescribed by: KARUNA DE LUNA on 07/02/17 1009 Last Action: Continued on 09/03/191236 by JENNIFER KEMP MD Hydralazine Hcl (Hydralazine Hcl) 50 Mg Tablet, 1 TAB PO BID for HTN, #180 Ref 3 (Reported) Entered as Reported by: NALINI LANDA on 09/03/19 150 Last Taken: Unknown Dose on 09/02/19 Last Action: New Order on 09/03/19 150 by NALINI LANDA Hydrochlorothiazide (Hydrochlorothiazide Tablet ) 25 Mg Tablet, 1 TAB PO DAILY, #30 Ref 5 (Reported) Entered as Reported by: STEFF YODER on 04/05/17955 Last Action: Continued on 09/03/191236 by JENNIFER KEMP MD Isosorbide Mononitrate (Isosorbide Mononitrate Er) 60 Mg Tab.er.24h, 1 TAB PO DAILY, #30 Ref 5 (Reported) Entered as Reported by: STEFF YODER on 04/05/17955 Last Action: Converted on 09/03/191236 by JENNIFER KEMP MD Pravastatin Sodium (Pravastatin Sodium) 40 Mg Tablet, 1 TAB PO QHS, #90 Ref 1 (Reported) Entered as Reported by: STEFF YODER on 04/05/17955 Last Action: Converted on 09/03/19 1237 by JENNIFER KEMP MD Discontinued Medications Carvedilol (Carvedilol ) 12.5 Mg Tablet, 1 TAB PO BID, #180 Ref 1 (Reported) Discontinued Reason: Prescription changed Entered as Reported by: STEFF YODER on 04/05/17955 Last Action: Continued on 09/03/197 by JENNIFER KEMP MD Justicifation of Admission Dx: Justifications for Admission: Justification of Admission Dx: Yes CHF: Hemodynamic Instability WISAM CLINE MD Sep 07, 2019 11:43
--- NOTE | 2019-09-07 13:42 | NUR ---
Discharge Note: NALINI DUMONT Discharge instructions and discharge home medications reviewed with Patient and a copy given. All questions have been answered and understanding verbalized. The following instructions and handouts were given: CABG, diet, follow up, post cath radial access care. Discontinued lines and drains: IV removed, no lines present on discharge. Patient discharged to home. left via wheelchair to private vehicle with grandson.
--- NOTE | 2019-09-08 00:21 | CONS ---
DATE OF CONSULTATION: 09/06/2019 REFERRING PHYSICIAN: We were asked by Dr. Mata to see the patient. HISTORY OF PRESENT ILLNESS: The patient is a 69-year-old with coronary artery disease. The patient was admitted on 09/03/2019 with increasing shortness of breath. The patient has a history of coronary artery disease with previous right coronary stenting. The patient states that he had increasing shortness of breath over several days prior to admission and he was advised to come to the Emergency Department for expeditious evaluation. In the Emergency Department, he was found to be in sinus rhythm with no acute changes. Chest x-ray showed no acute processes and the patient was comfortable at rest. Subsequent evaluation has included coronary angiography, which shows severe 3-vessel disease including in-stent stenosis of the right coronary artery. The circumflex artery itself is open, but there is subtotal occlusion of marginal. The LAD and diagonal have disease related to left main stenosis. Left ventricular function is satisfactory by echo. Past history is significant for hypertension and hyperlipidemia. The patient has chronic obstructive pulmonary disease and gastroesophageal reflux. MEDICATIONS: At home includes Plavix, aspirin, hydralazine, carvedilol, allopurinol, pravastatin, hydrochlorothiazide, isosorbide, and amlodipine. ALLERGIES: LISINOPRIL CAUSES SWELLING, SHELLFISH CAUSES SWELLING, STRAWBERRY CAUSES SWELLING, TOMATO CAUSES SWELLING. REVIEW OF SYSTEMS: GENERAL: The patient has no fever, no weight change. EYES: No vision changes. HENT: No headache, no hearing problems. No sore throat. RESPIRATORY: Progressive shortness of breath, leading to admission. CARDIAC: Denies angina, but does admit to shortness of breath and generalized fatigue. GASTROINTESTINAL: No nausea, vomiting, abdominal pain, blood. GENITOURINARY: No urgency, frequency, or blood. MUSCULOSKELETAL: No bone or joint pain. SKIN: No rash or infection. NEUROLOGIC: No motor or sensory loss. ENDOCRINE: No goiter, no tremor. HEMATOLOGIC: No anemia, no bruisability. PHYSICAL EXAMINATION: VITAL SIGNS: Temperature 98.4, pulse 75, respiratory rate 18, blood pressure 121/80. HEENT: No scleral icterus. NECK: No mass. I hear no bruit. LUNGS: Clear to auscultation. HEART: Rhythm regular. No murmur. ABDOMEN: Soft, somewhat protuberant. EXTREMITIES: No clubbing, cyanosis or edema. NEUROLOGIC: No motor or sensory loss. MUSCULOSKELETAL: No bone or joint asymmetry or deformity. SKIN: No rash or infection. PSYCHIATRIC: Insight into problem, answers questions appropriately. Oriented x 3. ASSESSMENT AND PLAN: The patient has important left main and 3-vessel coronary artery disease. I have recommended coronary artery bypass surgery for this. Risks and details of this were discussed. Options and alternatives were reviewed. Risks include but are not limited to bleeding, infection, anesthesia risks, heart and lung problems, stroke and . The patient understands all of this and wishes to proceed. The patient also expresses desire to go home and in as much as he is asymptomatic at rest, I think this is safe. I will discuss the case with Dr. Mata, but I suspect we will try to bring the patient back for coronary artery bypass in the near future. The patient understands this will be done at [facility]. Thank you for the consult. LUX FERRER MD DR: KAYLIE/nona JOB#: [id number] / [id number]
== END 2019-09-07 12:00 | disposition home or self-care (01) | DRG 286 ==
LOC: ER 09:36 → ED HOLD 12:17 → 2 NORTH 14:32
PROVIDERS: ADMIT Internal Medicine; ATTEND Internal Medicine
PROC: 4A023N7 Measurement of Cardiac Sampling and Pressure, Left Heart, Percutaneous Approach (ICD-10-PCS; principal; 2019-09-05)
PROC: B211YZZ Fluoroscopy of Multiple Coronary Arteries using Other Contrast (ICD-10-PCS; 2019-09-05)
DX: T82.855A Stenosis of coronary artery stent, initial encounter (principal); I50.43 Acute on chronic combined systolic (congestive) and diastolic (congestive) heart failure; J96.01 Acute respiratory failure with hypoxia; I13.0 Hypertensive heart and chronic kidney disease with heart failure and stage 1 through stage 4 chronic kidney disease, or unspecified chronic kidney disease; J84.9 Interstitial pulmonary disease, unspecified; N18.3 Chronic kidney disease, stage 3 (moderate); E11.22 Type 2 diabetes mellitus with diabetic chronic kidney disease; E66.01 Morbid (severe) obesity due to excess calories; E78.00 Pure hypercholesterolemia, unspecified; E78.5 Hyperlipidemia, unspecified; E83.42 Hypomagnesemia; F41.9 Anxiety disorder, unspecified; I25.10 Atherosclerotic heart disease of native coronary artery without angina pectoris; I25.2 Old myocardial infarction; J44.9 Chronic obstructive pulmonary disease, unspecified; K21.9 Gastro-esophageal reflux disease without esophagitis; M10.9 Gout, unspecified; Y83.1 Surgical operation with implant of artificial internal device as the cause of abnormal reaction of the patient, or of later complication, without mention of misadventure at the time of the procedure; Z68.33 Body mass index [BMI] 33.0-33.9, adult; Z79.01 Long term (current) use of anticoagulants; Z82.49 Family history of ischemic heart disease and other diseases of the circulatory system; Z86.718 Personal history of other venous thrombosis and embolism; Z86.73 Personal history of transient ischemic attack (TIA), and cerebral infarction without residual deficits; Z87.891 Personal history of nicotine dependence; Z96.649 Presence of unspecified artificial hip joint; M19.90 Unspecified osteoarthritis, unspecified site; Z20.828 Contact with and (suspected) exposure to other viral communicable diseases; Z88.0 Allergy status to penicillin; Z88.8 Allergy status to other drugs, medicaments and biological substances; Z91.018 Allergy to other foods
CPT/HCPCS: 36415; 71045; 71275; 80048; 80053; 83690; 83735; 83880; 84484; 85025; 85027; 85520; 85610; 85730; 87641; 93005; 93306; 93458; 94618; 99152; 99153; 99285; C1769; C1892; J1644; J2250; J3010; J3475; J3490; J7030; Q9967; U0003; G0378

== ENCOUNTER 2019-09-09 12:24 | Inpatient (IN) | payer MEDICARE ==
[~2019-09-09] VITALS: Ht 185.4 cm; Wt 113.4 kg
[~2019-09-09 12:24] MED LIST changes: +CARV25TA2 PO; +HYDR-2869 PO
--- NOTE | 2019-09-09 13:02 | PHYS DOC ---
Past Medical History Past Medical History: CVA, High Cholesterol, Heart Disease, Hypertension, [place], Other Additional Past Medical Histor: gout Past Surgical History: Angioplasty Additional Past Surgical Histo: CARDIAC STENT; right hip Smoking Status: Former Smoker Alcohol Use: Occasionally Drug Use: None General Adult EDM: Chief Complaint: SHORTNESS OF BREATH HPI: HPI: Patient is a 69 year old male, accompanied by his , who presents to the emergency department with complaints of worsening shortness of breath. Patient states he was discharged from this facility 2 days ago and he is supposed to have some stents placed in his heart by Dr. Mata. He denies any chest pain, palpitations, diaphoresis, back pain, body aches, fatigue, weakness, nausea, vomiting, diarrhea, abdominal pain, fever, cough, or wheezing. Patient states that the shortness of breath has increased so that he is short of breath even when he is just lying down. He denies any headache or vision changes. The patient states that since he has been discharged he has had a few dizzy spells but denies any syncope. Patient also reports that he has had some intermittent episodes of left-sided chest pain that feels like a sharp twinge. He currently denies any pain. Patient's states that he received 81 mg of aspirin as part of his daily regimen earlier this morning. Review of Systems: Review of Systems: Constitutional: Denies fever or chills. [] Eyes: Denies change in visual acuity. [] HENT: Denies nasal congestion or sore throat. [] Respiratory: See HPI Cardiovascular: See HPI GI: Denies abdominal pain, nausea, vomiting, bloody stools or diarrhea. [] : Denies dysuria. [] Musculoskeletal: Denies back pain or joint pain. [] Integument: Denies rash. [] Neurologic: Denies headache, focal weakness or sensory changes. [] Endocrine: Denies polyuria or polydipsia. [] Lymphatic: Denies swollen glands. [] Psychiatric: Denies depression or anxiety. [] Heart Score: Risk Factors: Risk Factors: DM, Current or recent (<one month) smoker, HTN, HLP, family history of CAD, obesity. Risk Scores: Score 0 - 3: 2.5% MACE over next 6 weeks - Discharge Home Score 4 - 6: 20.3% MACE over next 6 weeks - Admit for Clinical Observation Score 7 - 10: 72.7% MACE over next 6 weeks - Early Invasive Strategies Allergies: Allergies: Allergies Coded Allergies Type Severity Reaction Last Updated Verified lisinopril Allergy Severe swelling 06/23/16 Yes shellfish derived Allergy Severe swelling 06/23/16 Yes strawberry Allergy Severe swelling 06/23/16 Yes tomato Allergy Severe swelling 06/23/16 Yes Physical Exam: PE: Constitutional: Well developed, well nourished, no acute distress, non-toxic appearance, obese. [] HENT: Normocephalic, atraumatic, bilateral external ears normal, oropharynx moist, no oral exudates, nose normal. [] Eyes: PERRLA, EOMI, conjunctiva normal, no discharge. [] Neck: Normal range of motion, no tenderness, supple, no stridor. [] Cardiovascular:Heart irregular rhythm, no murmur [] Lungs & Thorax: Bilateral breath sounds clear to auscultation diminished posteriorly, Respirations even and mildly tachypneic, no retractions Abdomen: soft, no tenderness, no masses, no pulsatile masses. [] Skin: Warm, dry, no erythema, no rash. [] Back: No tenderness Extremities: No cyanosis, ROM intact, no edema. [] Neurologic: Alert and oriented X 3, no focal deficits noted. [] Psychologic: Affect normal, judgement normal, mood normal. [] Current Patient Data: Vital Signs: Vital Signs Date Time Temp Pulse Resp B/P (MAP) Pulse Ox O2 Delivery O2 Flow Rate FiO2 09/09/19 12:34 98.7 61 20 134/97 (109) 94 Room Air 98.7 EKG: EK- A-fib rate 69 with right axis deviation and QRS (T) Contour abnormality, consistent with inferior infarct probably old, no acute STEMI read by Dr. Lopez[] Radiology/Procedures: Radiology/Procedures: PROCEDURE: CHEST AP ONLY EXAM: CHEST AP ONLY INDICATION: Reason: SOA / Spl. Instructions: / History: . TECHNIQUE: Single view COMPARISON: 09/03/2019 chest x-ray FINDINGS: The heart size is borderline enlarged, unchanged.. The great vessels appear unremarkable. There is no hilar or mediastinal mass. Lungs show no focal infiltrates but there is mild residual pulmonary vascular congestion. There is no pleural effusion or pneumothorax. There are no significant osseous abnormalities. Ossified 2.8 cm loose body projecting over the left rotator interval is unchanged. IMPRESSION: Stable borderline cardiomegaly and mild pulmonary vascular congestion [] Course & Med Decision Making: Course & Med Decision Making Pertinent Labs and Imaging studies reviewed. (See chart for details) 1307- Spoke with Dr. Mata and advised of pt presentation to the ER for worsening SOA, per Dr. Mata plan is to take patient to cardiac catheterization technologist on Thursday. Advised that pt will be admitted to the hospitalist group. 1334-spoke with Dr. Botello who is the admitting physician, and care was assumed following discussion of patient. Patient's vital signs stable. Patient remains afebrile, appears nontoxic, respirations even and unlabored. Patient will be admitted to the med/telemetry floor. Patient's case and plan of care also discussed with Dr. Lopez [] Greg Disclaimer: Greg Disclaimer: This electronic medical record was generated, in whole or in part, using a voice recognition dictation system. Departure Departure Impression: Primary Impression: Shortness of breath at rest Disposition: ADMITTED INPATIENT Admitting Physician: CLAY (Ayan) Condition: STABLE Referrals: AR GALE (PCP) Justicifation of Admission Dx: Justifications for Admission: Justification of Admission Dx: Yes CHF: Hemodynamic Instability KD ADRIAN AUDIO VISUAL TECHNICIAN Sep 09, 2019 13:02
--- NOTE | 2019-09-09 13:09 | RAD ---
EXAM: CHEST AP ONLY INDICATION: Reason: SOA / Spl. Instructions: / History: . TECHNIQUE: Single view COMPARISON: 09/03/2019 chest x-ray FINDINGS: The heart size is borderline enlarged, unchanged.. The great vessels appear unremarkable. There is no hilar or mediastinal mass. Lungs show no focal infiltrates but there is mild residual pulmonary vascular congestion. There is no pleural effusion or pneumothorax. There are no significant osseous abnormalities. Ossified 2.8 cm loose body projecting over the left rotator interval is unchanged. IMPRESSION: Stable borderline cardiomegaly and mild pulmonary vascular congestion Electronically signed by: Shikha Louis MD (09/09/2019 1:06 PM) [id number]
[2019-09-09 13:20] LABS: BASO # 0.1 x10^3/uL (0.0-0.2); BASO % 1 % (0-3); EOS # 0.2 x10^3/uL (0.0-0.7); EOS % 2 % (0-3); HEMATOCRIT 48.8 % (39.0-53.0); LYMPH # 3.1 x10^3/uL (1.0-4.8); LYMPH % 28 % (24-48); MEAN CORPUSCULAR HEMOGLOBIN 30 pg (25-35); MEAN CORPUSCULAR HGB CONC 33 g/dL (31-37); MEAN CORPUSCULAR VOLUME 92 fL (79-100); MONO # 0.9 x10^3/uL (0.0-1.1); MONO % 8 % (0-9); NEUT # 6.7 x10^3/uL (1.8-7.7); NEUT % 61 % (31-73); PLATELET COUNT 214 x10^3/uL (140-400); RED BLOOD COUNT 5.31 x10^6/uL (4.30-5.70); RED CELL DISTRIBUTION WIDTH 16.4 % (11.5-14.5)
[2019-09-09 13:45] LABS: PROTHROMBIN TIME PATIENT 12.9 SEC (11.7-14.0)
[2019-09-09 13:49] LABS: CREATININE 1.6 mg/dL (0.7-1.3); GFR 42.9; POTASSIUM 4.6 mmol/L (3.5-5.1)
[2019-09-09 13:55] LABS: ALBUMIN 3.3 g/dL (3.4-5.0); ALBUMIN/GLOBULIN RATIO 0.8 (1.0-1.7); MAGNESIUM 2.2 mg/dL (1.8-2.4); TOTAL BILIRUBIN 0.4 mg/dL (0.2-1.0); TOTAL PROTEIN 7.3 g/dL (6.4-8.2)
--- NOTE | 2019-09-09 13:58 | EKG ---
[facility] [address] [place] [address] Test Date: 2019-09-09 Test Time: 12:42:09 Pat Name: NALINI DUMONT Department: Room: Gender: M Change Of Address Clerk: : 1950 Requested By: KD ADRIAN Order Number: [id number] Reading MD: Yoni Will Measurements Intervals Williamson Rate: 69 P: VT: QRS: 161 QRSD: 88 T: 26 QT: 408 QTc: 439 Interpretive Statements ATRIAL FIBRILLATION. ABNORMAL RIGHT AXIS DEVIATION NONSPECIFIC ST-T WAVE CHANGES. Electronically Signed On 09-09-2019 16:52:11 CDT by Yoni Will
[2019-09-09 14:13] LABS: CREATINE KINASE 63 U/L (39-308)
[2019-09-09 15:03] VITALS: BP 179/91
--- NOTE | 2019-09-09 16:55 | NUR ---
Received notification that pt will be moved to the second floor since he is going to have a cardiac cath on thursday. Report called to Rosa LOW and pt will be moved to room 261 when room is ready. and pt notified.
[2019-09-09] MEDS: CARVEDILOL 12.5 MG TABLET. PO SCH (17:02)
[2019-09-09] MEDS: ALLOPURINOL 300 MG TABLET. PO SCH (17:02)
--- NOTE | 2019-09-09 17:46 | NUR ---
PT TRANSFERRED TO ROOM 261 PER WHEELCHAIR.
[2019-09-09 17:57] VITALS: BP 157/82
--- NOTE | 2019-09-09 18:35 | PDOC1 ---
History and Physical Date of Admission Date of Admission DATE: 09/09/19 TIME: 18:30 Source Source: Chart review, Patient History of Present Illness History of Present Illness Mr. Weinstein, is a 69 year old male, returns to the hospital aftrer 2 days and reports he should not have left. he has been having more shortness of breath. Plan was to have some stents placed in his heart by Dr. Mata. He denies any chest pain, palpitations, diaphoresis, back pain, body aches, fatigue, weakness, nausea, vomiting, diarrhea, abdominal pain, fever, cough, or wheezing. Patient states that the shortness of breath has increased so that he is short of breath even when he is just lying down. He denies any headache or vision changes. The patient states that since he has been discharged he has had a few dizzy spells but denies any syncope. Patient also reports that he has had some intermittent episodes of left-sided chest pain that feels like a sharp twinge. He currently denies any pain. Patient's states that he received 81 mg of aspirin as part of his daily regimen earlier this morning. Past Medical History Cardiovascular: CAD, HTN, [place], Hyperlipidemia Pulmonary: COPD CENTRAL NERVOUS SYSTEM: CVA GI: GERD Heme/Onc: No pertinent hx Hepatobiliary: No pertinent hx Psych: No pertinent hx Musculoskeletal: Osteoarthritis Rheumatologic: No pertinent hx Infectious disease: No pertinent hx Renal/: No pertinent hx Endocrine: No pertinent hx Past Surgical History Past Surgical History: Total hip replacement, Other Family History Family History: Coronary Artery Disease Social History Smoke: No ALCOHOL: rare Drugs: None Current Problem List Problem List Problems Medical Problems: (1) Shortness of breath at rest Status: Acute Current Medications Current Medications Current Medications Allopurinol (Zyloprim) 300 mg QEVNG PO Last administered on 09/09/19at 17:02; Start 09/09/19 at 18:00 Amlodipine Besylate (Norvasc) 10 mg DAILY PO ; Start 09/10/19 at 09:00 Aspirin (Ecotrin) 81 mg DAILYWBKFT PO ; Start 09/10/19 at 08:00 Clopidogrel Bisulfate (Plavix) 75 mg DAILYWBKFT PO ; Start 09/10/19 at 08:00 Hydralazine HCl (Apresoline) 50 mg BID PO ; Start 09/09/19 at 21:00 Hydrochlorothiazide (Hydrodiuril) 25 mg DAILY PO ; Start 09/10/19 at 09:00 Carvedilol (Coreg) 25 mg BIDWMEALS PO Last administered on 09/09/19at 17:02; Start 09/09/19 at 17:00 Isosorbide Mononitrate (Imdur) 60 mg DAILY PO ; Start 09/10/19 at 09:00 Atorvastatin Calcium (Lipitor) 10 mg QHS PO ; Start 09/09/19 at 21:00 Active Scripts Active Clopidogrel (Clopidogrel Bisulfate) 75 Mg Tablet 75 Mg PO DAILYWBKFT Aspirin Ec (Aspirin) 81 Mg Tablet.dr 81 Mg PO DAILYWBKFT Reported Hydralazine Hcl 50 Mg Tablet 1 Tab PO BID Carvedilol 25 Mg Tablet 25 Mg PO BIDWMEALS Allopurinol 300 Mg Tablet 1 Tab PO QEVNG Pravastatin Sodium 40 Mg Tablet 1 Tab PO QHS Hydrochlorothiazide Tablet (Hydrochlorothiazide) 25 Mg Tablet 1 Tab PO DAILY Isosorbide Mononitrate Er (Isosorbide Mononitrate) 60 Mg Tab.er.24h 1 Tab PO DAILY Amlodipine Besylate 10 Mg Tablet 10 Mg PO DAILY Allergies Allergies: Coded Allergies: lisinopril (Verified Allergy, Severe, swelling, 06/23/16) shellfish derived (Verified Allergy, Severe, swelling, 06/23/16) strawberry (Verified Allergy, Severe, swelling, 06/23/16) tomato (Verified Allergy, Severe, swelling, 06/23/16) ROS General: YES: Fatigue, Malaise PSYCHOLOGICAL ROS: No: Anxiety, Behavioral Disorder, Concentration difficultie, Decreased libido, Depression, Disorientation, Hallucinations, Hostility, Irritablity, Memory difficulties, Mood Swings, Obsessive thoughts, Physical abuse, Sexual abuse, Sleep disturbances, Suicidal ideation, Other Eyes: No Blurry vision, No Decreased vision, No Double vision, No Dry eyes, No Excessive tearing, No Eye Pain, No Itchy Eyes, No Loss of vision, No Photophobia, No Scotomata, No Uses contacts, No Uses glasses, No Other HEENT: No: Heacaches, Visual Changes, Hearing change, Nasal congestion, Nasal discharge, Oral lesions, Sinus pain, Sore Throat, Epistaxis, Sneezing, Snoring, Tinnitus, Vertigo, Vocal changes, Other Respiratory: YES: Shortness of breath, SOB with excertion, Tachypnea; No: Cough, Hemoptysis, Orthopnea, Pleuritic Pain, Sputum Changes, Stridor, Wheezing, Other Cardiovascular: yes Edema; No Chest Pain, No Palpitations, No Orthopnea, No Paroxysmal Noc. Dyspnea, No Lt Headedness, No Other Gastrointestinal: No Nausea, No Vomiting, No Abdominal Pain, No Diarrhea, No Constipation, No Melena, No Hematochezia, No Other Genitourinary: No Dysuria, No Frequency, No Incontinence, No Hematuria, No Retention, No Discharge, No Urgency, No Pain, No Flank Pain, No Other, No , No , No , No , No , No , No Musculoskeletal: Yes Joint Stiffness; No Gait Disturbance, No Joint Pain, No Joint Swelling, No Muscle Pain, No Muscular Weakness, No Pain In:, No Swelling In:, No Other Neurological: No Behavorial Changes, No Bowel/Bladder ControlChng, No Confusion, No Dizziness, No Gait Disturbance, No Headaches, No Impaired Coord/ba claritza, No Memory Loss, No Numbness/Tingling, No Seizures, No Speech Problems, No Tremors, No Visual Changes, No Weakness, No Other Skin: No Dry Skin, No Eczema, No Hair Changes, No Lumps, No Mole Changes, No Mottling, No Nail Changes, No Pruritus, No Rash, No Skin Lesion Changes, No Other, No Acne Physical Exam General: Alert, No acute distress HEENT: Atraumatic, EOMI, Mucous membr. moist/pink Lungs: Clear to auscultation Heart: no gallops, no murmurs Abdomen: Normal bowel sounds, Soft Extremities: No cyanosis, Normal pulses, Other (tr edema) Skin: No rashes, No significant lesion Neuro: Normal gait, Sensation intact, Cranial nerves 3-12 NL Psych/Mental Status: Mood NL Vitals Vitals Vital Signs Date Time Temp Pulse Resp B/P (MAP) Pulse Ox O2 Delivery O2 Flow Rate FiO2 09/09/19 17:57 98.0 84 18 157/82 (107) 96 Room Air 98.0 Labs Labs Laboratory Tests Test 09/09/19 13:00 09/09/19 13:27 White Blood Count 11.0 x10^3/uL (4.0-11.0) Red Blood Count 5.31 x10^6/uL (4.30-5.70) Hemoglobin 16.0 g/dL (13.0-17.5) Hematocrit 48.8 % (39.0-53.0) Mean Corpuscular Volume 92 fL (79-100) Mean Corpuscular Hemoglobin 30 pg (25-35) Mean Corpuscular Hemoglobin Concent 33 g/dL (31-37) Red Cell Distribution Width 16.4 % (11.5-14.5) Platelet Count 214 x10^3/uL (140-400) Neutrophils (%) (Auto) 61 % (31-73) Lymphocytes (%) (Auto) 28 % (24-48) Monocytes (%) (Auto) 8 % (0-9) Eosinophils (%) (Auto) 2 % (0-3) Basophils (%) (Auto) 1 % (0-3) Neutrophils # (Auto) 6.7 x10^3/uL (1.8-7.7) Lymphocytes # (Auto) 3.1 x10^3/uL (1.0-4.8) Monocytes # (Auto) 0.9 x10^3/uL (0.0-1.1) Eosinophils # (Auto) 0.2 x10^3/uL (0.0-0.7) Basophils # (Auto) 0.1 x10^3/uL (0.0-0.2) Prothrombin Time 12.9 SEC (11.7-14.0) Prothromb Time International Ratio 1.0 (0.8-1.1) Activated Partial Thromboplast Time 27 SEC (24-38) Sodium Level 135 mmol/L (136-145) Potassium Level 4.6 mmol/L (3.5-5.1) Chloride Level 100 mmol/L (98-107) Carbon Dioxide Level 27 mmol/L (21-32) Anion Gap 8 (6-14) Blood Urea Nitrogen 34 mg/dL (8-26) Creatinine 1.6 mg/dL (0.7-1.3) Estimated GFR (Cockcroft-Gault) 42.9 BUN/Creatinine Ratio 21 (6-20) Glucose Level 108 mg/dL (70-99) Calcium Level 9.0 mg/dL (8.5-10.1) Magnesium Level 2.2 mg/dL (1.8-2.4) Total Bilirubin 0.4 mg/dL (0.2-1.0) Aspartate Amino Transf (AST/SGOT) 27 U/L (15-37) Alanine Aminotransferase (ALT/SGPT) 70 U/L (16-63) Alkaline Phosphatase 87 U/L (46-116) Creatine Kinase 63 U/L (39-308) Creatine Kinase MB (Mass) 1.8 ng/mL (0.0-3.6) Creatine Kinase MB Relative Index % (0-4) Troponin I Quantitative < 0.017 ng/mL (0.000-0.055) CG-Gio-U-Type Natriuretic Peptide 914 pg/mL (0-124) Total Protein 7.3 g/dL (6.4-8.2) Albumin 3.3 g/dL (3.4-5.0) Albumin/Globulin Ratio 0.8 (1.0-1.7) Laboratory Tests Test 09/09/19 13:00 09/09/19 13:27 White Blood Count 11.0 x10^3/uL (4.0-11.0) Red Blood Count 5.31 x10^6/uL (4.30-5.70) Hemoglobin 16.0 g/dL (13.0-17.5) Hematocrit 48.8 % (39.0-53.0) Mean Corpuscular Volume 92 fL (79-100) Mean Corpuscular Hemoglobin 30 pg (25-35) Mean Corpuscular Hemoglobin Concent 33 g/dL (31-37) Red Cell Distribution Width 16.4 % (11.5-14.5) Platelet Count 214 x10^3/uL (140-400) Neutrophils (%) (Auto) 61 % (31-73) Lymphocytes (%) (Auto) 28 % (24-48) Monocytes (%) (Auto) 8 % (0-9) Eosinophils (%) (Auto) 2 % (0-3) Basophils (%) (Auto) 1 % (0-3) Neutrophils # (Auto) 6.7 x10^3/uL (1.8-7.7) Lymphocytes # (Auto) 3.1 x10^3/uL (1.0-4.8) Monocytes # (Auto) 0.9 x10^3/uL (0.0-1.1) Eosinophils # (Auto) 0.2 x10^3/uL (0.0-0.7) Basophils # (Auto) 0.1 x10^3/uL (0.0-0.2) Prothrombin Time 12.9 SEC (11.7-14.0) Prothromb Time International Ratio 1.0 (0.8-1.1) Activated Partial Thromboplast Time 27 SEC (24-38) Sodium Level 135 mmol/L (136-145) Potassium Level 4.6 mmol/L (3.5-5.1) Chloride Level 100 mmol/L (98-107) Carbon Dioxide Level 27 mmol/L (21-32) Anion Gap 8 (6-14) Blood Urea Nitrogen 34 mg/dL (8-26) Creatinine 1.6 mg/dL (0.7-1.3) Estimated GFR (Cockcroft-Gault) 42.9 BUN/Creatinine Ratio 21 (6-20) Glucose Level 108 mg/dL (70-99) Calcium Level 9.0 mg/dL (8.5-10.1) Magnesium Level 2.2 mg/dL (1.8-2.4) Total Bilirubin 0.4 mg/dL (0.2-1.0) Aspartate Amino Transf (AST/SGOT) 27 U/L (15-37) Alanine Aminotransferase (ALT/SGPT) 70 U/L (16-63) Alkaline Phosphatase 87 U/L (46-116) Creatine Kinase 63 U/L (39-308) Creatine Kinase MB (Mass) 1.8 ng/mL (0.0-3.6) Creatine Kinase MB Relative Index % (0-4) Troponin I Quantitative < 0.017 ng/mL (0.000-0.055) PM-Ksu-P-Type Natriuretic Peptide 914 pg/mL (0-124) Total Protein 7.3 g/dL (6.4-8.2) Albumin 3.3 g/dL (3.4-5.0) Albumin/Globulin Ratio 0.8 (1.0-1.7) VTE Prophylaxis Ordered VTE Prophylaxis Devices: Yes VTE Pharmacological Prophylaxi: Yes Assessment/Plan Assessment/Plan CAD acute systolic CHF obese DM2 htn lipids plan cardiac cath and stents on thursday, he declined having CABG Justicifation of Admission Dx: Justifications for Admission: Justification of Admission Dx: Yes CHF: Hemodynamic Instability KARUNA DE LUNA MD Sep 09, 2019 18:35
[2019-09-09 19:49] VITALS: BP 97/46
[2019-09-09] MEDS: ATORVASTATIN CALCIUM 10 MG TABLET. PO SCH (20:54)
[2019-09-09] MEDS: ENOXAPARIN 40 MG/0.4 ML SYRINGE. SQ SCH (20:55)
[2019-09-09 22:44] VITALS: BP 111/53
--- NOTE | 2019-09-09 23:56 | PDOC ---
CARDIOLOGY PROGRESS NOTE SUBJECTIVE: Please see prior notes for full details. 69 yo male with LM disease on recent cath. He had evaluation by CT surgery. He has declined CABG and wants to proceed with PCI. Went home to get things in order and returned with worsening dyspnea. His dyspnea has been out of proportion to his cardiac disease. He has subjective dyspnea but objectively, his BP, O2 sat, HR are all ok when he has dyspnea. He has been ambulating around the patel before he left last time and was mostly ok. He has had a thorough pulmonary evaluation as well. OBJECTIVE: Vital Signs/I&O: Vital Signs Date Time Temp Pulse Resp B/P (MAP) Pulse Ox O2 Delivery O2 Flow Rate FiO2 09/09/19 22:44 98.2 69 18 111/53 (72) 94 Room Air 98.2 Objective: GEN.: No apparent distress. Alert and oriented. HEENT: Head is normocephalic, atraumatic NECK: Supple. LUNGS: Clear to auscultation. HEART: RRR, S1, S2 present. Peripheral pulses intact ABDOMEN: Soft, nontender. Positive bowel sounds. EXTREMITIES: Without any cyanosis. NEUROLOGIC: Normal speech, normal tone PSYCHIATRIC: Normal affect, normal mood. SKIN: No ulcerations CURRENT MEDICATIONS: Current Medications Medications (Trade) Dose Ordered Sig/Sandee Route PRN Reason Start Time Stop Time Status Last Admin Dose Admin Allopurinol (Zyloprim) 300 mg QEVNG PO 09/09/19 18:00 09/09/19 17:02 Hydralazine HCl (Apresoline) 50 mg BID PO 09/09/19 21:00 09/09/19 21:00 Carvedilol (Coreg) 25 mg BIDWMEALS PO 09/09/19 17:00 09/09/19 17:02 Atorvastatin Calcium (Lipitor) 10 mg QHS PO 09/09/19 21:00 09/09/19 20:54 Enoxaparin Sodium (Lovenox 40mg Syringe) 40 mg Q24H SQ 09/09/19 21:00 09/09/19 20:55 DIAGNOSTIC TESTING: Labs reviewed Labs: Laboratory Tests 09/09/19 13:00 09/09/19 13:27 Laboratory Tests Test 09/09/19 13:00 09/09/19 13:27 White Blood Count 11.0 x10^3/uL (4.0-11.0) Red Blood Count 5.31 x10^6/uL (4.30-5.70) Hemoglobin 16.0 g/dL (13.0-17.5) Hematocrit 48.8 % (39.0-53.0) Mean Corpuscular Volume 92 fL (79-100) Mean Corpuscular Hemoglobin 30 pg (25-35) Mean Corpuscular Hemoglobin Concent 33 g/dL (31-37) Red Cell Distribution Width 16.4 % (11.5-14.5) H Platelet Count 214 x10^3/uL (140-400) Neutrophils (%) (Auto) 61 % (31-73) Lymphocytes (%) (Auto) 28 % (24-48) Monocytes (%) (Auto) 8 % (0-9) Eosinophils (%) (Auto) 2 % (0-3) Basophils (%) (Auto) 1 % (0-3) Neutrophils # (Auto) 6.7 x10^3/uL (1.8-7.7) Lymphocytes # (Auto) 3.1 x10^3/uL (1.0-4.8) Monocytes # (Auto) 0.9 x10^3/uL (0.0-1.1) Eosinophils # (Auto) 0.2 x10^3/uL (0.0-0.7) Basophils # (Auto) 0.1 x10^3/uL (0.0-0.2) Prothrombin Time 12.9 SEC (11.7-14.0) Prothromb Time International Ratio 1.0 (0.8-1.1) Activated Partial Thromboplast Time 27 SEC (24-38) Sodium Level 135 mmol/L (136-145) L Potassium Level 4.6 mmol/L (3.5-5.1) Chloride Level 100 mmol/L (98-107) Carbon Dioxide Level 27 mmol/L (21-32) Anion Gap 8 (6-14) Blood Urea Nitrogen 34 mg/dL (8-26) H Creatinine 1.6 mg/dL (0.7-1.3) H Estimated GFR (Cockcroft-Gault) 42.9 BUN/Creatinine Ratio 21 (6-20) H Glucose Level 108 mg/dL (70-99) H Calcium Level 9.0 mg/dL (8.5-10.1) Total Bilirubin 0.4 mg/dL (0.2-1.0) Aspartate Amino Transf (AST/SGOT) 27 U/L (15-37) Alkaline Phosphatase 87 U/L (46-116) Creatine Kinase 63 U/L (39-308) Creatine Kinase MB (Mass) 1.8 ng/mL (0.0-3.6) Creatine Kinase MB Relative Index % (0-4) Total Protein 7.3 g/dL (6.4-8.2) Albumin 3.3 g/dL (3.4-5.0) L Albumin/Globulin Ratio 0.8 (1.0-1.7) L ASSESSMENT: 1. Dyspnea - only obvious source is CAD. No significant heart failure, no significant pulmonary fibrosis, infection, anemia. Possible anxiety as well. 2. CAD 3. HTN PLAN: I again discussed the risks and benefits of high risk PCI with the patient and previously discussed with his . They wish to proceed with PCI. Will plan for thursday. Continue present meds. Justicifation of Admission Dx: Justifications for Admission: Justification of Admission Dx: Yes CHF: Hemodynamic Instability MANSI HART MD Sep 09, 2019 23:56
[2019-09-10 02:30] VITALS: BP 113/61
[2019-09-10 07:00] VITALS: BP 161/94
[2019-09-10] MEDS: ISOSORBIDE MONONITRATE ER 30 MG TAB.ER.24H PO SCH (08:10)
[2019-09-10] MEDS: amLODIPine BESYLATE 10 MG TABLET PO SCH (08:11)
[2019-09-10] MEDS: CLOPIDOGREL BISULFATE 75 MG TABLET PO SCH (08:11)
[2019-09-10] MEDS: ASPIRIN ENTERIC COATED 81 MG TABLET.DR. PO SCH (08:11)
[2019-09-10] MEDS: CARVEDILOL 12.5 MG TABLET. PO SCH ×2 (08:12→17:05)
[2019-09-10] MEDS ORDERED: hydroCHLOROthiazide 25 MG TABLET PO SCH (09:00)
[2019-09-10 10:50] VITALS: BP 127/69
--- NOTE | 2019-09-10 12:12 | PDOC ---
PROGRESS NOTES Chief Complaint Chief Complaint CAD, left main disease, needs intervention acute systolic CHF obese DM2 htn hyper lipids History of Present Illness History of Present Illness plan cardiac cath and stents on thursday, he declined having CABG Vitals Vitals Vital Signs Date Time Temp Pulse Resp B/P (MAP) Pulse Ox O2 Delivery O2 Flow Rate FiO2 09/10/19 10:50 97.8 73 16 127/69 (88) 95 Room Air 97.8 Physical Exam General: Alert, No acute distress Lungs: Other Abdomen: Normal bowel sounds, Soft Extremities: No cyanosis, Normal pulses, Other (tr edema) Skin: No rashes, No significant lesion Labs LABS Laboratory Tests Test 09/09/19 13:00 09/09/19 13:27 White Blood Count 11.0 x10^3/uL (4.0-11.0) Red Blood Count 5.31 x10^6/uL (4.30-5.70) Hemoglobin 16.0 g/dL (13.0-17.5) Hematocrit 48.8 % (39.0-53.0) Mean Corpuscular Volume 92 fL (79-100) Mean Corpuscular Hemoglobin 30 pg (25-35) Mean Corpuscular Hemoglobin Concent 33 g/dL (31-37) Red Cell Distribution Width 16.4 % (11.5-14.5) Platelet Count 214 x10^3/uL (140-400) Neutrophils (%) (Auto) 61 % (31-73) Lymphocytes (%) (Auto) 28 % (24-48) Monocytes (%) (Auto) 8 % (0-9) Eosinophils (%) (Auto) 2 % (0-3) Basophils (%) (Auto) 1 % (0-3) Neutrophils # (Auto) 6.7 x10^3/uL (1.8-7.7) Lymphocytes # (Auto) 3.1 x10^3/uL (1.0-4.8) Monocytes # (Auto) 0.9 x10^3/uL (0.0-1.1) Eosinophils # (Auto) 0.2 x10^3/uL (0.0-0.7) Basophils # (Auto) 0.1 x10^3/uL (0.0-0.2) Prothrombin Time 12.9 SEC (11.7-14.0) Prothromb Time International Ratio 1.0 (0.8-1.1) Activated Partial Thromboplast Time 27 SEC (24-38) Sodium Level 135 mmol/L (136-145) Potassium Level 4.6 mmol/L (3.5-5.1) Chloride Level 100 mmol/L (98-107) Carbon Dioxide Level 27 mmol/L (21-32) Anion Gap 8 (6-14) Blood Urea Nitrogen 34 mg/dL (8-26) Creatinine 1.6 mg/dL (0.7-1.3) Estimated GFR (Cockcroft-Gault) 42.9 BUN/Creatinine Ratio 21 (6-20) Glucose Level 108 mg/dL (70-99) Calcium Level 9.0 mg/dL (8.5-10.1) Magnesium Level 2.2 mg/dL (1.8-2.4) Total Bilirubin 0.4 mg/dL (0.2-1.0) Aspartate Amino Transf (AST/SGOT) 27 U/L (15-37) Alanine Aminotransferase (ALT/SGPT) 70 U/L (16-63) Alkaline Phosphatase 87 U/L (46-116) Creatine Kinase 63 U/L (39-308) Creatine Kinase MB (Mass) 1.8 ng/mL (0.0-3.6) Creatine Kinase MB Relative Index % (0-4) Troponin I Quantitative < 0.017 ng/mL (0.000-0.055) KR-[id number]-Type Natriuretic Peptide 914 pg/mL (0-124) Total Protein 7.3 g/dL (6.4-8.2) Albumin 3.3 g/dL (3.4-5.0) Albumin/Globulin Ratio 0.8 (1.0-1.7) Assessment and Plan Assessmemt and Plan Problems Medical Problems: (1) Shortness of breath at rest Status: Acute Comment Review of Relevant I have reviewed the following items thu (where applicable) has been applied. Labs Laboratory Tests Test 09/09/19 13:00 09/09/19 13:27 White Blood Count 11.0 x10^3/uL (4.0-11.0) Red Blood Count 5.31 x10^6/uL (4.30-5.70) Hemoglobin 16.0 g/dL (13.0-17.5) Hematocrit 48.8 % (39.0-53.0) Mean Corpuscular Volume 92 fL (79-100) Mean Corpuscular Hemoglobin 30 pg (25-35) Mean Corpuscular Hemoglobin Concent 33 g/dL (31-37) Red Cell Distribution Width 16.4 % (11.5-14.5) Platelet Count 214 x10^3/uL (140-400) Neutrophils (%) (Auto) 61 % (31-73) Lymphocytes (%) (Auto) 28 % (24-48) Monocytes (%) (Auto) 8 % (0-9) Eosinophils (%) (Auto) 2 % (0-3) Basophils (%) (Auto) 1 % (0-3) Neutrophils # (Auto) 6.7 x10^3/uL (1.8-7.7) Lymphocytes # (Auto) 3.1 x10^3/uL (1.0-4.8) Monocytes # (Auto) 0.9 x10^3/uL (0.0-1.1) Eosinophils # (Auto) 0.2 x10^3/uL (0.0-0.7) Basophils # (Auto) 0.1 x10^3/uL (0.0-0.2) Prothrombin Time 12.9 SEC (11.7-14.0) Prothromb Time International Ratio 1.0 (0.8-1.1) Activated Partial Thromboplast Time 27 SEC (24-38) Sodium Level 135 mmol/L (136-145) Potassium Level 4.6 mmol/L (3.5-5.1) Chloride Level 100 mmol/L (98-107) Carbon Dioxide Level 27 mmol/L (21-32) Anion Gap 8 (6-14) Blood Urea Nitrogen 34 mg/dL (8-26) Creatinine 1.6 mg/dL (0.7-1.3) Estimated GFR (Cockcroft-Gault) 42.9 BUN/Creatinine Ratio 21 (6-20) Glucose Level 108 mg/dL (70-99) Calcium Level 9.0 mg/dL (8.5-10.1) Magnesium Level 2.2 mg/dL (1.8-2.4) Total Bilirubin 0.4 mg/dL (0.2-1.0) Aspartate Amino Transf (AST/SGOT) 27 U/L (15-37) Alanine Aminotransferase (ALT/SGPT) 70 U/L (16-63) Alkaline Phosphatase 87 U/L (46-116) Creatine Kinase 63 U/L (39-308) Creatine Kinase MB (Mass) 1.8 ng/mL (0.0-3.6) Creatine Kinase MB Relative Index % (0-4) Troponin I Quantitative < 0.017 ng/mL (0.000-0.055) KA-Rzl-Y-Type Natriuretic Peptide 914 pg/mL (0-124) Total Protein 7.3 g/dL (6.4-8.2) Albumin 3.3 g/dL (3.4-5.0) Albumin/Globulin Ratio 0.8 (1.0-1.7) Laboratory Tests Test 09/09/19 13:00 09/09/19 13:27 White Blood Count 11.0 x10^3/uL (4.0-11.0) Red Blood Count 5.31 x10^6/uL (4.30-5.70) Hemoglobin 16.0 g/dL (13.0-17.5) Hematocrit 48.8 % (39.0-53.0) Mean Corpuscular Volume 92 fL (79-100) Mean Corpuscular Hemoglobin 30 pg (25-35) Mean Corpuscular Hemoglobin Concent 33 g/dL (31-37) Red Cell Distribution Width 16.4 % (11.5-14.5) Platelet Count 214 x10^3/uL (140-400) Neutrophils (%) (Auto) 61 % (31-73) Lymphocytes (%) (Auto) 28 % (24-48) Monocytes (%) (Auto) 8 % (0-9) Eosinophils (%) (Auto) 2 % (0-3) Basophils (%) (Auto) 1 % (0-3) Neutrophils # (Auto) 6.7 x10^3/uL (1.8-7.7) Lymphocytes # (Auto) 3.1 x10^3/uL (1.0-4.8) Monocytes # (Auto) 0.9 x10^3/uL (0.0-1.1) Eosinophils # (Auto) 0.2 x10^3/uL (0.0-0.7) Basophils # (Auto) 0.1 x10^3/uL (0.0-0.2) Prothrombin Time 12.9 SEC (11.7-14.0) Prothromb Time International Ratio 1.0 (0.8-1.1) Activated Partial Thromboplast Time 27 SEC (24-38) Sodium Level 135 mmol/L (136-145) Potassium Level 4.6 mmol/L (3.5-5.1) Chloride Level 100 mmol/L (98-107) Carbon Dioxide Level 27 mmol/L (21-32) Anion Gap 8 (6-14) Blood Urea Nitrogen 34 mg/dL (8-26) Creatinine 1.6 mg/dL (0.7-1.3) Estimated GFR (Cockcroft-Gault) 42.9 BUN/Creatinine Ratio 21 (6-20) Glucose Level 108 mg/dL (70-99) Calcium Level 9.0 mg/dL (8.5-10.1) Magnesium Level 2.2 mg/dL (1.8-2.4) Total Bilirubin 0.4 mg/dL (0.2-1.0) Aspartate Amino Transf (AST/SGOT) 27 U/L (15-37) Alanine Aminotransferase (ALT/SGPT) 70 U/L (16-63) Alkaline Phosphatase 87 U/L (46-116) Creatine Kinase 63 U/L (39-308) Creatine Kinase MB (Mass) 1.8 ng/mL (0.0-3.6) Creatine Kinase MB Relative Index % (0-4) Troponin I Quantitative < 0.017 ng/mL (0.000-0.055) QY-Qyx-Y-Type Natriuretic Peptide 914 pg/mL (0-124) Total Protein 7.3 g/dL (6.4-8.2) Albumin 3.3 g/dL (3.4-5.0) Albumin/Globulin Ratio 0.8 (1.0-1.7) Medications Current Medications Allopurinol (Zyloprim) 300 mg QEVNG PO Last administered on 09/09/19at 17:02; Start 09/09/19 at 18:00 Amlodipine Besylate (Norvasc) 10 mg DAILY PO Last administered on 09/10/19at 08:11; Start 09/10/19 at 09:00 Aspirin (Ecotrin) 81 mg DAILYWBKFT PO Last administered on 09/10/19 08:11; Start 09/10/19 at 08:00 Clopidogrel Bisulfate (Plavix) 75 mg DAILYWBKFT PO Last administered on 09/10/19at 08:11; Start 09/10/19 at 08:00 Hydralazine HCl (Apresoline) 50 mg BID PO Last administered on 09/10/19 08:11; Start 09/09/19 at 21:00 Hydrochlorothiazide (Hydrodiuril) 25 mg DAILY PO Last administered on 09/10/19at 08:11; Start 09/10/19 at 09:00 Carvedilol (Coreg) 25 mg BIDWMEALS PO Last administered on 09/10/19 08:12; Start 09/09/19 at 17:00 Isosorbide Mononitrate (Imdur) 60 mg DAILY PO Last administered on 09/10/19at 08:10; Start 09/10/19 at 09:00 Atorvastatin Calcium (Lipitor) 10 mg QHS PO Last administered on 09/09/19at 20:54; Start 09/09/19 at 21:00 Enoxaparin Sodium (Lovenox Per Pharmacy Prophylaxis Dosing) 1 each PRN DAILY PRN MC SEE COMMENTS; Start 09/09/19 at 18:45 Enoxaparin Sodium (Lovenox 40mg Syringe) 40 mg Q24H SQ Last administered on 09/09/19at 20:55; Start 09/09/19 at 21:00 Zolpidem Tartrate (Ambien) 5 mg PRN QHS PRN PO INSOMNIA; Start 09/09/19 at 18:45 Active Scripts Active Clopidogrel (Clopidogrel Bisulfate) 75 Mg Tablet 75 Mg PO DAILYWBKFT Aspirin Ec (Aspirin) 81 Mg Tablet. 81 Mg PO DAILYWBKFT Reported Hydralazine Hcl 50 Mg Tablet 1 Tab PO BID Carvedilol 25 Mg Tablet 25 Mg PO BIDWMEALS Allopurinol 300 Mg Tablet 1 Tab PO QEVNG Pravastatin Sodium 40 Mg Tablet 1 Tab PO QHS Hydrochlorothiazide Tablet (Hydrochlorothiazide) 25 Mg Tablet 1 Tab PO DAILY Isosorbide Mononitrate Er (Isosorbide Mononitrate) 60 Mg Tab.er.24h 1 Tab PO DAILY Amlodipine Besylate 10 Mg Tablet 10 Mg PO DAILY Vitals/I & O Vital Sign - Last 24 Hours 09/09/19 09/09/19 09/09/19 09/09/19 12:34 13:00 13:25 15:03 Temp 98.7 97.7 98.7 97.7 Pulse 61 70 70 85 Resp 20 18 B/P (MAP) 134/97 (109) 121/68 (85) 158/82 (107) 179/91 (120) Pulse Ox 94 94 95 96 O2 Delivery Room Air Room Air Room Air Room Air 09/09/19 09/09/19 09/09/19 09/09/19 17:02 17:57 19:49 20:00 Temp 98.0 98.0 98.0 98.0 Pulse 85 84 68 Resp 18 20 B/P (MAP) 179/91 157/82 (107) 97/46 (63) Pulse Ox 96 96 O2 Delivery Room Air Room Air Room Air 09/09/19 09/09/19 09/10/19 09/10/19 21:00 22:44 02:30 07:00 Temp 98.2 98.0 98.6 98.2 98.0 98.6 Pulse 69 69 67 74 Resp 18 16 16 B/P (MAP) 111/53 111/53 (72) 113/61 (78) 161/94 (116) Pulse Ox 94 91 92 O2 Delivery Room Air Room Air Room Air 09/10/19 09/10/19 09/10/19 09/10/19 08:10 08:11 08:11 08:12 Pulse 74 74 74 74 B/P (MAP) 161/94 161/94 161/94 161/94 09/10/19 09/10/19 08:20 10:50 Temp 97.8 97.8 Pulse 73 Resp 16 B/P (MAP) 127/69 (88) Pulse Ox 95 O2 Delivery Room Air Room Air Intake and Output 09/09/19 09/09/19 09/10/19 14:59 22:59 06:59 Intake Total 200 ml 280 ml Balance 200 ml 280 ml KARUNA DE LUNA MD Sep 10, 2019 12:12
[2019-09-10 14:48] VITALS: BP 132/70
[2019-09-10] MEDS: ALLOPURINOL 300 MG TABLET. PO SCH (17:04)
[2019-09-10 18:48] VITALS: BP 112/64
[2019-09-10] MEDS: ATORVASTATIN CALCIUM 10 MG TABLET. PO SCH (20:30)
[2019-09-10] MEDS: ENOXAPARIN 40 MG/0.4 ML SYRINGE. SQ SCH (20:31)
[2019-09-10 22:46] VITALS: BP 114/71
[2019-09-11 03:00] VITALS: BP 127/71
[2019-09-11 05:18] LABS: BASO % 1 % (0-3); EOS # 0.1 x10^3/uL (0.0-0.7); EOS % 2 % (0-3); HEMATOCRIT 48.1 % (39.0-53.0); LYMPH # 2.2 x10^3/uL (1.0-4.8); LYMPH % 28 % (24-48); MEAN CORPUSCULAR HEMOGLOBIN 31 pg (25-35); MEAN CORPUSCULAR HGB CONC 33 g/dL (31-37); MEAN CORPUSCULAR VOLUME 92 fL (79-100); MONO # 0.5 x10^3/uL (0.0-1.1); MONO % 6 % (0-9); NEUT # 5.1 x10^3/uL (1.8-7.7); NEUT % 64 % (31-73); PLATELET COUNT 192 x10^3/uL (140-400); RED BLOOD COUNT 5.25 x10^6/uL (4.30-5.70); RED CELL DISTRIBUTION WIDTH 16.3 % (11.5-14.5)
[2019-09-11 05:41] LABS: ALBUMIN/GLOBULIN RATIO 0.8 (1.0-1.7); CALCIUM 9.1 mg/dL (8.5-10.1); CREATININE 1.5 mg/dL (0.7-1.3); GFR 46.3; TOTAL BILIRUBIN 0.2 mg/dL (0.2-1.0); TOTAL PROTEIN 6.7 g/dL (6.4-8.2)
[2019-09-11 07:00] VITALS: BP 127/71
[2019-09-11] MEDS: CLOPIDOGREL BISULFATE 75 MG TABLET PO SCH (07:57)
[2019-09-11] MEDS: ISOSORBIDE MONONITRATE ER 30 MG TAB.ER.24H PO SCH (07:58)
[2019-09-11] MEDS: amLODIPine BESYLATE 10 MG TABLET PO SCH (07:58)
[2019-09-11] MEDS: CARVEDILOL 12.5 MG TABLET. PO SCH ×2 (07:58→17:26)
[2019-09-11] MEDS: ASPIRIN ENTERIC COATED 81 MG TABLET.DR. PO SCH (07:58)
--- NOTE | 2019-09-11 10:30 | NUR ---
PATIENT CALL FOR NURSE. PATIENT STATED NEW ONSET PAIN IN HIS RIGHT ARM AND ARM WAS FEELING NUMB, EYE PAIN AND HEADACHE, AND SHORTNESS OF AIR. PATIENTS VITALS ASSESSED AT THIS TIME AND ALL VITALS STABLE. BP 108/71, O2 94 ON RA, AND HR 78. DOCTOR ASSESSED PATIENT. CT OF HEAD ORDERED. WILL CONTINUE TO MONITOR PATIENT.
--- NOTE | 2019-09-11 10:31 | PDOC ---
CARDIOLOGY PROGRESS NOTE SUBJECTIVE: No acute events overnight but the patient this morning had another episode of dyspnea. He was resting in his chair and began to experience dyspnea when he try to get out of it. He also had some right arm pain and some visual deficits. He denies any abdominal pain or nausea. He actually was able to ambulate this morning without any issues prior to this episode. He reports that this was similar in nature to his issues at home. OBJECTIVE: Vital Signs/I&O: Vital Signs Date Time Temp Pulse Resp B/P (MAP) Pulse Ox O2 Delivery O2 Flow Rate FiO2 09/11/19 07:58 70 127/71 09/11/19 07:55 Room Air 09/11/19 07:00 98.7 22 96 98.7 I & O 09/10/19 09/10/19 09/11/19 15:00 23:00 07:00 Intake Total 300 ml 1000 ml Balance 300 ml 1000 ml Objective: He is alert and oriented x3 He is in moderate distress due to the dyspnea. Lungs are clear bilaterally Abdomen is obese protuberant nontender No significant lower extremity edema 2+ radial pulses Normal heart tones. No obvious neurologic deficits. CURRENT MEDICATIONS: Imdur, aspirin, atorvastatin, carvedilol, Plavix, amlodipine DIAGNOSTIC TESTING: CT of the head pending Labs: Laboratory Tests 09/11/19 05:00 Laboratory Tests Test 09/11/19 05:00 White Blood Count 8.0 x10^3/uL (4.0-11.0) Red Blood Count 5.25 x10^6/uL (4.30-5.70) Hemoglobin 16.0 g/dL (13.0-17.5) Hematocrit 48.1 % (39.0-53.0) Mean Corpuscular Volume 92 fL (79-100) Mean Corpuscular Hemoglobin 31 pg (25-35) Mean Corpuscular Hemoglobin Concent 33 g/dL (31-37) Red Cell Distribution Width 16.3 % (11.5-14.5) H Platelet Count 192 x10^3/uL (140-400) Neutrophils (%) (Auto) 64 % (31-73) Lymphocytes (%) (Auto) 28 % (24-48) Monocytes (%) (Auto) 6 % (0-9) Eosinophils (%) (Auto) 2 % (0-3) Basophils (%) (Auto) 1 % (0-3) Neutrophils # (Auto) 5.1 x10^3/uL (1.8-7.7) Lymphocytes # (Auto) 2.2 x10^3/uL (1.0-4.8) Monocytes # (Auto) 0.5 x10^3/uL (0.0-1.1) Eosinophils # (Auto) 0.1 x10^3/uL (0.0-0.7) Basophils # (Auto) 0.0 x10^3/uL (0.0-0.2) Sodium Level 138 mmol/L (136-145) Potassium Level 4.0 mmol/L (3.5-5.1) Chloride Level 100 mmol/L (98-107) Carbon Dioxide Level 26 mmol/L (21-32) Anion Gap 12 (6-14) Blood Urea Nitrogen 31 mg/dL (8-26) H Creatinine 1.5 mg/dL (0.7-1.3) H Estimated GFR (Cockcroft-Gault) 46.3 BUN/Creatinine Ratio 21 (6-20) H Glucose Level 184 mg/dL (70-99) H Calcium Level 9.1 mg/dL (8.5-10.1) Total Bilirubin 0.2 mg/dL (0.2-1.0) Aspartate Amino Transf (AST/SGOT) 18 U/L (15-37) Alkaline Phosphatase 86 U/L (46-116) Total Protein 6.7 g/dL (6.4-8.2) Albumin 3.0 g/dL (3.4-5.0) L Albumin/Globulin Ratio 0.8 (1.0-1.7) L ASSESSMENT: 1. Coronary artery disease with left main involvement: 2. Hypertension 3. Dyslipidemia 4. Transient episodes of tachypnea, etiology unclear PLAN: 1. Given the patient's headaches we will plan for evaluation with a CT of the head 2. If a CT of the head is unremarkable we will tentatively plan for PCI of the left main tomorrow. I have again discussed the risks and benefits with the patient and his previously. They have declined bypass surgery. The understand the risks and benefits of PCI. They are willing to proceed with PCI only. Justicifation of Admission Dx: Justifications for Admission: Justification of Admission Dx: Yes CHF: Hemodynamic Instability MANSI HART MD Sep 11, 2019 10:31
[2019-09-11] MEDS ORDERED: SUMAtriptan SUCCINATE 25 MG TABLET PO ONE (11:00)
[2019-09-11] MEDS ORDERED: BUTALB/APAP/CAFEIN 50/325/40MG TABLET. PO PRN (11:00)
[2019-09-11 11:07] VITALS: BP 104/72
--- NOTE | 2019-09-11 11:16 | PDOC ---
Provider Note Provider Note Consult cancelled, call if needed again Justicifation of Admission Dx: Justifications for Admission: Justification of Admission Dx: Yes CHF: Hemodynamic Instability SEGUNDO BAKER MD Sep 11, 2019 11:16
--- NOTE | 2019-09-11 11:26 | RAD ---
EXAM: CT Head without IV contrast CLINICAL HISTORY: Headache COMPARISON: 07/01/2018 TECHNIQUE: Routine CT of the head without contrast. Soft tissues and bone windows were reviewed. PQRS compliance statement - One or more of the following individualized dose reduction techniques were utilized for this study: 1. Automated exposure control 2. Adjustment of the mA and/or kV according to patient size 3. Use of iterative reconstruction technique FINDINGS: There is no evidence of hemorrhage, mass or extra-axial fluid collection. Aviles-white differentiation is maintained with no evidence of edema. A few foci of subcortical, periventricular as well as deep white matter hypoattenuation likely changes of chronic small vessel disease. There is no mass effect or shift of the intracranial structures. The ventricles, basilar cisterns and cortical sulci are normal in size and configuration for the patients stated age. The cerebellum and brainstem are unremarkable. The calvarium demonstrates no evidence of fracture or focal lesion. There is normal aeration of the visualized paranasal sinuses and mastoid air cells. The visualized portions of the orbits are normal. Atherosclerotic calcifications of the intracranial internal carotid and vertebral arteries is seen. IMPRESSION: 1. No evidence for acute intracranial process. 2. A few foci of subcortical, periventricular as well as deep white matter hypoattenuation likely changes of chronic small vessel disease. Electronically signed by: Navarro Sin MD (09/11/2019 11:23 AM) [id number]
--- NOTE | 2019-09-11 11:40 | PDOC ---
PROGRESS NOTES Chief Complaint Chief Complaint CAD, left main disease, needs intervention acute systolic CHF obese DM2 htn hyper lipids headache, migrane, better after 30 min History of Present Illness History of Present Illness plan cardiac cath and stents on thursday, he declined having CABG Vitals Vitals Vital Signs Date Time Temp Pulse Resp B/P (MAP) Pulse Ox O2 Delivery O2 Flow Rate FiO2 09/11/19 11:07 98.5 68 20 104/72 (83) 94 Room Air 98.5 Physical Exam General: Alert, Cooperative, No acute distress Heart: Regular rate, Normal S2 Lungs: Other Abdomen: Normal bowel sounds, Soft Extremities: No cyanosis, Normal pulses, Other (tr edema) Skin: No rashes, No significant lesion Labs LABS Laboratory Tests Test 09/11/19 05:00 White Blood Count 8.0 x10^3/uL (4.0-11.0) Red Blood Count 5.25 x10^6/uL (4.30-5.70) Hemoglobin 16.0 g/dL (13.0-17.5) Hematocrit 48.1 % (39.0-53.0) Mean Corpuscular Volume 92 fL (79-100) Mean Corpuscular Hemoglobin 31 pg (25-35) Mean Corpuscular Hemoglobin Concent 33 g/dL (31-37) Red Cell Distribution Width 16.3 % (11.5-14.5) Platelet Count 192 x10^3/uL (140-400) Neutrophils (%) (Auto) 64 % (31-73) Lymphocytes (%) (Auto) 28 % (24-48) Monocytes (%) (Auto) 6 % (0-9) Eosinophils (%) (Auto) 2 % (0-3) Basophils (%) (Auto) 1 % (0-3) Neutrophils # (Auto) 5.1 x10^3/uL (1.8-7.7) Lymphocytes # (Auto) 2.2 x10^3/uL (1.0-4.8) Monocytes # (Auto) 0.5 x10^3/uL (0.0-1.1) Eosinophils # (Auto) 0.1 x10^3/uL (0.0-0.7) Basophils # (Auto) 0.0 x10^3/uL (0.0-0.2) Sodium Level 138 mmol/L (136-145) Potassium Level 4.0 mmol/L (3.5-5.1) Chloride Level 100 mmol/L (98-107) Carbon Dioxide Level 26 mmol/L (21-32) Anion Gap 12 (6-14) Blood Urea Nitrogen 31 mg/dL (8-26) Creatinine 1.5 mg/dL (0.7-1.3) Estimated GFR (Cockcroft-Gault) 46.3 BUN/Creatinine Ratio 21 (6-20) Glucose Level 184 mg/dL (70-99) Calcium Level 9.1 mg/dL (8.5-10.1) Total Bilirubin 0.2 mg/dL (0.2-1.0) Aspartate Amino Transf (AST/SGOT) 18 U/L (15-37) Alanine Aminotransferase (ALT/SGPT) 60 U/L (16-63) Alkaline Phosphatase 86 U/L (46-116) Total Protein 6.7 g/dL (6.4-8.2) Albumin 3.0 g/dL (3.4-5.0) Albumin/Globulin Ratio 0.8 (1.0-1.7) Assessment and Plan Assessmemt and Plan Problems Medical Problems: (1) Shortness of breath at rest Status: Acute Comment Review of Relevant I have reviewed the following items thu (where applicable) has been applied. Labs Laboratory Tests Test 09/09/19 13:00 09/09/19 13:27 09/11/19 05:00 White Blood Count 11.0 x10^3/uL (4.0-11.0) 8.0 x10^3/uL (4.0-11.0) Red Blood Count 5.31 x10^6/uL (4.30-5.70) 5.25 x10^6/uL (4.30-5.70) Hemoglobin 16.0 g/dL (13.0-17.5) 16.0 g/dL (13.0-17.5) Hematocrit 48.8 % (39.0-53.0) 48.1 % (39.0-53.0) Mean Corpuscular Volume 92 fL (79-100) 92 fL (79-100) Mean Corpuscular Hemoglobin 30 pg (25-35) 31 pg (25-35) Mean Corpuscular Hemoglobin Concent 33 g/dL (31-37) 33 g/dL (31-37) Red Cell Distribution Width 16.4 % (11.5-14.5) 16.3 % (11.5-14.5) Platelet Count 214 x10^3/uL (140-400) 192 x10^3/uL (140-400) Neutrophils (%) (Auto) 61 % (31-73) 64 % (31-73) Lymphocytes (%) (Auto) 28 % (24-48) 28 % (24-48) Monocytes (%) (Auto) 8 % (0-9) 6 % (0-9) Eosinophils (%) (Auto) 2 % (0-3) 2 % (0-3) Basophils (%) (Auto) 1 % (0-3) 1 % (0-3) Neutrophils # (Auto) 6.7 x10^3/uL (1.8-7.7) 5.1 x10^3/uL (1.8-7.7) Lymphocytes # (Auto) 3.1 x10^3/uL (1.0-4.8) 2.2 x10^3/uL (1.0-4.8) Monocytes # (Auto) 0.9 x10^3/uL (0.0-1.1) 0.5 x10^3/uL (0.0-1.1) Eosinophils # (Auto) 0.2 x10^3/uL (0.0-0.7) 0.1 x10^3/uL (0.0-0.7) Basophils # (Auto) 0.1 x10^3/uL (0.0-0.2) 0.0 x10^3/uL (0.0-0.2) Prothrombin Time 12.9 SEC (11.7-14.0) Prothromb Time International Ratio 1.0 (0.8-1.1) Activated Partial Thromboplast Time 27 SEC (24-38) Sodium Level 135 mmol/L (136-145) 138 mmol/L (136-145) Potassium Level 4.6 mmol/L (3.5-5.1) 4.0 mmol/L (3.5-5.1) Chloride Level 100 mmol/L (98-107) 100 mmol/L (98-107) Carbon Dioxide Level 27 mmol/L (21-32) 26 mmol/L (21-32) Anion Gap 8 (6-14) 12 (6-14) Blood Urea Nitrogen 34 mg/dL (8-26) 31 mg/dL (8-26) Creatinine 1.6 mg/dL (0.7-1.3) 1.5 mg/dL (0.7-1.3) Estimated GFR (Cockcroft-Gault) 42.9 46.3 BUN/Creatinine Ratio 21 (6-20) 21 (6-20) Glucose Level 108 mg/dL (70-99) 184 mg/dL (70-99) Calcium Level 9.0 mg/dL (8.5-10.1) 9.1 mg/dL (8.5-10.1) Magnesium Level 2.2 mg/dL (1.8-2.4) Total Bilirubin 0.4 mg/dL (0.2-1.0) 0.2 mg/dL (0.2-1.0) Aspartate Amino Transf (AST/SGOT) 27 U/L (15-37) 18 U/L (15-37) Alanine Aminotransferase (ALT/SGPT) 70 U/L (16-63) 60 U/L (16-63) Alkaline Phosphatase 87 U/L (46-116) 86 U/L (46-116) Creatine Kinase 63 U/L (39-308) Creatine Kinase MB (Mass) 1.8 ng/mL (0.0-3.6) Creatine Kinase MB Relative Index % (0-4) Troponin I Quantitative < 0.017 ng/mL (0.000-0.055) DI-Sgh-D-Type Natriuretic Peptide 914 pg/mL (0-124) Total Protein 7.3 g/dL (6.4-8.2) 6.7 g/dL (6.4-8.2) Albumin 3.3 g/dL (3.4-5.0) 3.0 g/dL (3.4-5.0) Albumin/Globulin Ratio 0.8 (1.0-1.7) 0.8 (1.0-1.7) Laboratory Tests Test 09/11/19 05:00 White Blood Count 8.0 x10^3/uL (4.0-11.0) Red Blood Count 5.25 x10^6/uL (4.30-5.70) Hemoglobin 16.0 g/dL (13.0-17.5) Hematocrit 48.1 % (39.0-53.0) Mean Corpuscular Volume 92 fL (79-100) Mean Corpuscular Hemoglobin 31 pg (25-35) Mean Corpuscular Hemoglobin Concent 33 g/dL (31-37) Red Cell Distribution Width 16.3 % (11.5-14.5) Platelet Count 192 x10^3/uL (140-400) Neutrophils (%) (Auto) 64 % (31-73) Lymphocytes (%) (Auto) 28 % (24-48) Monocytes (%) (Auto) 6 % (0-9) Eosinophils (%) (Auto) 2 % (0-3) Basophils (%) (Auto) 1 % (0-3) Neutrophils # (Auto) 5.1 x10^3/uL (1.8-7.7) Lymphocytes # (Auto) 2.2 x10^3/uL (1.0-4.8) Monocytes # (Auto) 0.5 x10^3/uL (0.0-1.1) Eosinophils # (Auto) 0.1 x10^3/uL (0.0-0.7) Basophils # (Auto) 0.0 x10^3/uL (0.0-0.2) Sodium Level 138 mmol/L (136-145) Potassium Level 4.0 mmol/L (3.5-5.1) Chloride Level 100 mmol/L (98-107) Carbon Dioxide Level 26 mmol/L (21-32) Anion Gap 12 (6-14) Blood Urea Nitrogen 31 mg/dL (8-26) Creatinine 1.5 mg/dL (0.7-1.3) Estimated GFR (Cockcroft-Gault) 46.3 BUN/Creatinine Ratio 21 (6-20) Glucose Level 184 mg/dL (70-99) Calcium Level 9.1 mg/dL (8.5-10.1) Total Bilirubin 0.2 mg/dL (0.2-1.0) Aspartate Amino Transf (AST/SGOT) 18 U/L (15-37) Alanine Aminotransferase (ALT/SGPT) 60 U/L (16-63) Alkaline Phosphatase 86 U/L (46-116) Total Protein 6.7 g/dL (6.4-8.2) Albumin 3.0 g/dL (3.4-5.0) Albumin/Globulin Ratio 0.8 (1.0-1.7) Medications Current Medications Allopurinol (Zyloprim) 300 mg QEVNG PO Last administered on 09/10/19 17:04; Start 09/09/19 at 18:00 Amlodipine Besylate (Norvasc) 10 mg DAILY PO Last administered on 09/11/19 07:58; Start 09/10/19 at 09:00 Aspirin (Ecotrin) 81 mg DAILYWBKFT PO Last administered on 09/11/19 07:58; Start 09/10/19 at 08:00 Clopidogrel Bisulfate (Plavix) 75 mg DAILYWBKFT PO Last administered on 09/11/19 07:57; Start 09/10/19 at 08:00 Hydralazine HCl (Apresoline) 50 mg BID PO Last administered on 09/10/19at 20:30; Start 09/09/19 at 21:00 Hydrochlorothiazide (Hydrodiuril) 25 mg DAILY PO Last administered on 09/10/19at 08:11; Start 09/10/19 at 09:00; Stop 09/10/19 at 14:09; Status DC Carvedilol (Coreg) 25 mg BIDWMEALS PO Last administered on 09/11/19at 07:58; Start 09/09/19 at 17:00 Isosorbide Mononitrate (Imdur) 60 mg DAILY PO Last administered on 09/11/19at 07:58; Start 09/10/19 at 09:00 Atorvastatin Calcium (Lipitor) 10 mg QHS PO Last administered on 09/10/19at 20:30; Start 09/09/19 at 21:00 Enoxaparin Sodium (Lovenox Per Pharmacy Prophylaxis Dosing) 1 each PRN DAILY PRN MC SEE COMMENTS; Start 09/09/19 at 18:45 Enoxaparin Sodium (Lovenox 40mg Syringe) 40 mg Q24H SQ Last administered on 09/10/19at 20:31; Start 09/09/19 at 21:00 Zolpidem Tartrate (Ambien) 5 mg PRN QHS PRN PO INSOMNIA; Start 09/09/19 at 18:45 Lorazepam (Ativan Inj) 1 mg 1X ONCE IVP ; Start 09/11/19 at 11:00; Stop 09/11/19 at 11:11; Status DC Sumatriptan Succinate (Imitrex) 50 mg 1X ONCE PO ; Start 09/11/19 at 11:00; Stop 09/11/19 at 11:11; Status DC Acetaminophen/ Butalbital/ Caffeine (Fioricet) 1 tab PRN Q6HRS PRN PO MIGRAINE HEADACHE; Start 09/11/19 at 11:00 Active Scripts Active Clopidogrel (Clopidogrel Bisulfate) 75 Mg Tablet 75 Mg PO DAILYWBKFT Aspirin Ec (Aspirin) 81 Mg Tablet.dr 81 Mg PO DAILYWBKFT Reported Hydralazine Hcl 50 Mg Tablet 1 Tab PO BID Carvedilol 25 Mg Tablet 25 Mg PO BIDWMEALS Allopurinol 300 Mg Tablet 1 Tab PO QEVNG Pravastatin Sodium 40 Mg Tablet 1 Tab PO QHS Hydrochlorothiazide Tablet (Hydrochlorothiazide) 25 Mg Tablet 1 Tab PO DAILY Isosorbide Mononitrate Er (Isosorbide Mononitrate) 60 Mg Tab.er.24h 1 Tab PO DAILY Amlodipine Besylate 10 Mg Tablet 10 Mg PO DAILY Vitals/I & O Vital Sign - Last 24 Hours 09/10/19 09/10/19 09/10/19 09/10/19 14:48 17:05 18:48 20:00 Temp 97.8 98.9 97.8 98.9 Pulse 66 62 64 Resp 16 16 B/P (MAP) 132/70 (90) 130/72 112/64 (80) Pulse Ox 95 90 O2 Delivery Room Air Room Air Room Air 09/10/19 09/10/19 09/11/19 09/11/19 20:30 22:46 03:00 07:00 Temp 98.7 98.7 98.7 98.7 98.7 98.7 Pulse 64 71 70 70 Resp 20 22 22 B/P (MAP) 112/64 114/71 (85) 127/71 (89) 127/71 (89) Pulse Ox 99 96 96 O2 Delivery Room Air Room Air Room Air 6/14/20 6/14/20 6/14/20 6/14/20 07:55 07:58 07:58 07:58 Pulse 70 70 70 B/P (MAP) 127/71 127/71 127/71 O2 Delivery Room Air 09/11/19 11:07 Temp 98.5 98.5 Pulse 68 Resp 20 B/P (MAP) 104/72 (83) Pulse Ox 94 O2 Delivery Room Air Intake and Output 09/10/19 09/10/19 09/11/19 15:00 23:00 07:00 Intake Total 300 ml 1000 ml Balance 300 ml 1000 ml KARUNA DE LUNA MD Sep 11, 2019 11:40
[2019-09-11 15:06] VITALS: BP 124/76
[2019-09-11] MEDS: ALLOPURINOL 300 MG TABLET. PO SCH (17:26)
[2019-09-11 19:17] VITALS: BP 144/87
[2019-09-11] MEDS: ATORVASTATIN CALCIUM 10 MG TABLET. PO SCH (20:27)
[2019-09-11] MEDS: ENOXAPARIN 40 MG/0.4 ML SYRINGE. SQ SCH (20:28)
[2019-09-11 22:31] VITALS: BP 108/47
[2019-09-12 02:30] VITALS: BP 114/60
[2019-09-12 06:18] VITALS: BP 139/88
[2019-09-12] MEDS: CLOPIDOGREL BISULFATE 75 MG TABLET PO SCH (08:38)
[2019-09-12] MEDS: ASPIRIN ENTERIC COATED 81 MG TABLET.DR. PO SCH (08:38)
[2019-09-12] MEDS: ISOSORBIDE MONONITRATE ER 30 MG TAB.ER.24H PO SCH (08:39)
[2019-09-12] MEDS: CARVEDILOL 12.5 MG TABLET. PO SCH ×2 (08:39→17:30)
[2019-09-12] MEDS: amLODIPine BESYLATE 10 MG TABLET PO SCH (08:41)
--- NOTE | 2019-09-12 09:30 | PDOC ---
PROGRESS NOTES Chief Complaint Chief Complaint IMPRESSION CAD, left main disease, needs intervention RCA is a large caliber vessel with a proximal 70% stenosis, followed by a patent stent, a distal 70% stenosis. LM is a large caliber vessel with an eccentric distal 70% stenosis. . acute systolic CHF obese DM2 CKD STAGE 3-4 htn hyper lipids headache, migrane, better after 30 min PLAN NEPHROLOGY CONSULT 37 min pt exam, chart review, > 50% of time spent with exam, chart review, pt care coordination History of Present Illness History of Present Illness plan cardiac cath and stents 09/12 , he declined having CABG Vitals Vitals Vital Signs Date Time Temp Pulse Resp B/P (MAP) Pulse Ox O2 Delivery O2 Flow Rate FiO2 09/12/19 08:41 64 136/82 09/12/19 06:18 98.1 18 92 Room Air 98.1 Physical Exam General: Alert, Oriented X3, Cooperative, No acute distress Heart: Regular rate, Normal S2 Lungs: Clear, Other Abdomen: Normal bowel sounds, Soft Extremities: No cyanosis, Normal pulses, Other (tr edema) Skin: No rashes, No significant lesion Labs LABS Echo Enhancing Agent Indication: Rule Out Septal Defect Agent/Amount Used: Agitated Saline 10mL 2D DIMENSIONS Left Atrium(2D) 3.1 (1.6-4.0cm) IVSd 1.9 (0.7-1.1cm) Aortic Root(2D) 3.1 (2.0-3.7cm) LVDd 4.6 (3.9-5.9cm) PWd 1.3 (0.7-1.1cm) LVDs 2.4 (2.5-4.0cm) FS (%) 48.5 % SV 77.6 ml LVEF(%) 79.9 (>50%) Aortic Valve AoV Peak Mookie. 165.5cm/s AoV VTI 35.3cm AO Peak GR. 11.0mmHg LVOT VTI 24.78cm AO Mean GR. 7mmHg Mitral Valve MV E Velocity 79.1cm/s MV E Peak Gr. 2mmHg MV DECEL TIME 236ms MV A Velocity 74.1cm/s MV E Mean Gr. 1mmHg E/A Ratio 1.1 LEFT VENTRICLE The left ventricle is normal size. There is moderate concentric left ventricular hypertrophy. The left ventricular systolic function is normal. The Ejection Fraction is 55-60%. There is normal LV segmental wall motion. Transmitral Doppler flow pattern is Grade II-pseudonormal filling dynamics. RIGHT VENTRICLE The right ventricle is normal size. There is normal right ventricular wall thickness. The right ventricular systolic function is normal. ATRIA The left atrium size is normal. The right atrium size is normal. The interatrial septum is intact with no evidence for an atrial septal defect or patent foramen ovale as noted on 2-D or Doppler imaging. AORTIC VALVE The aortic valve is thickened but opens well. Doppler and Color Flow revealed no significant aortic regurgitation. There is no significant aortic valvular stenosis. MITRAL VALVE The mitral valve is normal in structure and function. There is no evidence of mitral valve prolapse. There is no mitral valve stenosis. Doppler and Color-flow revealed trace mitral regurgitation. TRICUSPID VALVE The tricuspid valve is not well visualized. Doppler and Color Flow revealed no tricuspid valve regurgitation noted. There is no tricuspid valve stenosis. PULMONIC VALVE The pulmonic valve is not well visualized. Doppler and Color Flow revealed trace pulmonic valvular regurgitation. GREAT VESSELS The aortic root is normal in size. The IVC is normal in size and collapses >50% with inspiration. PERICARDIAL EFFUSION There is no evidence of significant pericardial effusion. Critical Notification Critical Value: No <Conclusion> The left ventricular systolic function is normal. The Ejection Fraction is 55-60%. There is normal LV segmental wall motion. Transmitral Doppler flow pattern is Grade II-pseudonormal filling dynamics. Trace mitral regurgitation. There is no evidence of significant pericardial effusion. Signed by : Sindi Guy Approved : 09/07/2019 07:50:53 DICTATED and SIGNED BY: KASIA HIRSCH MD DATE: 09/06/19 1730 APPROVED REPORT Technologist: NATE YANEZ RTR Nurse: Alexa Loco R.N. Procedure(s) performed: MODERATE SEDATION TIME: 27 MIN FLUORO TIME: 3.4 MIN DOSE: 96.2 GYCM2 CONTRAST: 57CC [facility]IS[facility], Coronary angiography HISTORY The patient is a 69 year-old male with a history of : coronary artery disease, tobacco history() , hypertension, dyslipidemia. INDICATION The indication(s) include : unstable angina , dyspnea. [facility] Clinical Frailty Scale [facility] Clinical Frailty Scale: Moderately Frail Heart Failure Heart Failure: Yes If Yes, Newly Diagnosed: No If Yes, HF Type: Diastolic If Yes, NYHA Class: Class III PROCEDURE NARRATIVE INFORMED CONSENT: After explaining the risks and benefits of the procedure and alternatives, informed consent was obtained. The patient was brought electively to the cardiac catheterization lab. A timeout was performed confirming the patient's name, date of , procedure, and site of procedure. All necessary personnel were wearing the appropriate protective equipment and radiation monitor devices. (See nursing notes for medications administered). ACCESS: The right wrist was sterilely prepped and draped in the usual fashion. The right wrist was infiltrated with 1 mL of 2% lidocaine for subcutaneous anesthesia. A 6 [place] Terumo glide sheath was inserted into the right radial artery without difficulty. CORONARY ANGIOGRAPHY: Right and left coronary angiography was performed using a 6Fr TIG 4.0 catheter. Left ventricular end diastolic pressure was obtained with a pigtail catheter and pullback was performed after left ventriculography. All catheter exchanges and advancements were performed over a guidewire. CLOSURE: At case completion the right radial sheath was removed and a Terumo radial band was applied with 13 ml of air. COMPLICATIONS: The patient tolerated the procedure well and there were no immediate c omplications. FINDINGS: HEMODYNAMICS: LVEDP 7 mm Hg No gradient on LV to aortic pullback. AO: 90/60 LEFT VENTRICULOGRAM:Deferred due to known normal EF by echo. CORONARY ANGIOGRAPHY: LM is a large caliber vessel with an eccentric distal 70% stenosis. . LAD is a large caliber vessel with proximal ectasia followed by a 50% stenosis and mild distal luminal irregularities. D1 is a moderate caliber vessel with mild luminal irregularities. LCx is a moderate caliber non-dominant vessel with mild luminal irregularities. RCA is a large caliber vessel with a proximal 70% stenosis, followed by a patent stent, a distal 70% stenosis. RPDA is a moderate caliber vessel with mild diffuse irregularities of up to 30% RPL is a moderate caliber vessel with mild luminal irregularities. Conclusion 1. Normal left sided filling pressures. 2. Two vessel coronary disease with LM involvement. Recommendations 1. Pulmonary evaluation due to severe dyspnea as presenting symptom. 2. If no clear pulmonary source identified, evaluation for CABG versus high risk PCI. Signed by : Mansi Mata, Electronically Approved : 09/05/2019 13:39:10 DICTATED and SIGNED BY: MANSI MATA MD DATE: 09/05/19 1311 Assessment and Plan Assessmemt and Plan Problems Medical Problems: (1) Shortness of breath at rest Status: Acute Comment Review of Relevant I have reviewed the following items thu (where applicable) has been applied. Labs Laboratory Tests Test 09/11/19 05:00 White Blood Count 8.0 x10^3/uL (4.0-11.0) Red Blood Count 5.25 x10^6/uL (4.30-5.70) Hemoglobin 16.0 g/dL (13.0-17.5) Hematocrit 48.1 % (39.0-53.0) Mean Corpuscular Volume 92 fL (79-100) Mean Corpuscular Hemoglobin 31 pg (25-35) Mean Corpuscular Hemoglobin Concent 33 g/dL (31-37) Red Cell Distribution Width 16.3 % (11.5-14.5) Platelet Count 192 x10^3/uL (140-400) Neutrophils (%) (Auto) 64 % (31-73) Lymphocytes (%) (Auto) 28 % (24-48) Monocytes (%) (Auto) 6 % (0-9) Eosinophils (%) (Auto) 2 % (0-3) Basophils (%) (Auto) 1 % (0-3) Neutrophils # (Auto) 5.1 x10^3/uL (1.8-7.7) Lymphocytes # (Auto) 2.2 x10^3/uL (1.0-4.8) Monocytes # (Auto) 0.5 x10^3/uL (0.0-1.1) Eosinophils # (Auto) 0.1 x10^3/uL (0.0-0.7) Basophils # (Auto) 0.0 x10^3/uL (0.0-0.2) Sodium Level 138 mmol/L (136-145) Potassium Level 4.0 mmol/L (3.5-5.1) Chloride Level 100 mmol/L (98-107) Carbon Dioxide Level 26 mmol/L (21-32) Anion Gap 12 (6-14) Blood Urea Nitrogen 31 mg/dL (8-26) Creatinine 1.5 mg/dL (0.7-1.3) Estimated GFR (Cockcroft-Gault) 46.3 BUN/Creatinine Ratio 21 (6-20) Glucose Level 184 mg/dL (70-99) Calcium Level 9.1 mg/dL (8.5-10.1) Total Bilirubin 0.2 mg/dL (0.2-1.0) Aspartate Amino Transf (AST/SGOT) 18 U/L (15-37) Alanine Aminotransferase (ALT/SGPT) 60 U/L (16-63) Alkaline Phosphatase 86 U/L (46-116) Total Protein 6.7 g/dL (6.4-8.2) Albumin 3.0 g/dL (3.4-5.0) Albumin/Globulin Ratio 0.8 (1.0-1.7) Medications Current Medications Allopurinol (Zyloprim) 300 mg QEVNG PO Last administered on 09/11/19at 17:26; Start 09/09/19 at 18:00 Amlodipine Besylate (Norvasc) 10 mg DAILY PO Last administered on 09/12/19at 08:41; Start 09/10/19 at 09:00 Aspirin (Ecotrin) 81 mg DAILYWBKFT PO Last administered on 09/12/19at 08:38; Start 09/10/19 at 08:00 Clopidogrel Bisulfate (Plavix) 75 mg DAILYWBKFT PO Last administered on 09/12/19at 08:38; Start 09/10/19 at 08:00 Hydralazine HCl (Apresoline) 50 mg BID PO Last administered on 09/12/19at 08:40; Start 09/09/19 at 21:00 Hydrochlorothiazide (Hydrodiuril) 25 mg DAILY PO Last administered on 09/10/19at 08:11; Start 09/10/19 at 09:00; Stop 09/10/19 at 14:09; Status DC Carvedilol (Coreg) 25 mg BIDWMEALS PO Last administered on 09/12/19at 08:39; Start 09/09/19 at 17:00 Isosorbide Mononitrate (Imdur) 60 mg DAILY PO Last administered on 09/12/19at 08:39; Start 09/10/19 at 09:00 Atorvastatin Calcium (Lipitor) 10 mg QHS PO Last administered on 09/11/19at 20 :27; Start 09/09/19 at 21:00 Enoxaparin Sodium (Lovenox Per Pharmacy Prophylaxis Dosing) 1 each PRN DAILY PRN MC SEE COMMENTS; Start 09/09/19 at 18:45 Enoxaparin Sodium (Lovenox 40mg Syringe) 40 mg Q24H SQ Last administered on 09/11/19at 20:28; Start 09/09/19 at 21:00 Zolpidem Tartrate (Ambien) 5 mg PRN QHS PRN PO INSOMNIA; Start 09/09/19 at 18:45 Lorazepam (Ativan Inj) 1 mg 1X ONCE IVP ; Start 09/11/19 at 11:00; Stop 09/11/19 at 11:11; Status DC Sumatriptan Succinate (Imitrex) 50 mg 1X ONCE PO ; Start 09/11/19 at 11:00; Stop 09/11/19 at 11:11; Status DC Acetaminophen/ Butalbital/ Caffeine (Fioricet) 1 tab PRN Q6HRS PRN PO MIGRAINE HEADACHE; Start 09/11/19 at 11:00 Active Scripts Active Clopidogrel (Clopidogrel Bisulfate) 75 Mg Tablet 75 Mg PO DAILYWBKFT Aspirin Ec (Aspirin) 81 Mg Tablet.dr 81 Mg PO DAILYWBKFT Reported Hydralazine Hcl 50 Mg Tablet 1 Tab PO BID Carvedilol 25 Mg Tablet 25 Mg PO BIDWMEALS Allopurinol 300 Mg Tablet 1 Tab PO QEVNG Pravastatin Sodium 40 Mg Tablet 1 Tab PO QHS Hydrochlorothiazide Tablet (Hydrochlorothiazide) 25 Mg Tablet 1 Tab PO DAILY Isosorbide Mononitrate Er (Isosorbide Mononitrate) 60 Mg Tab.er.24h 1 Tab PO DAILY Amlodipine Besylate 10 Mg Tablet 10 Mg PO DAILY Vitals/I & O Vital Sign - Last 24 Hours 09/11/19 09/11/19 09/11/19 09/11/19 11:07 15:06 17:26 19:17 Temp 98.5 98.0 98.8 98.5 98.0 98.8 Pulse 68 79 79 73 Resp 20 20 18 B/P (MAP) 104/72 (83) 124/76 (92) 124/76 144/87 (106) Pulse Ox 94 96 94 O2 Delivery Room Air Room Air Room Air 09/11/19 09/11/19 09/11/19 09/12/19 20:00 20:27 22:31 02:30 Temp 98.6 98.3 98.6 98.3 Pulse 73 76 73 Resp 18 18 B/P (MAP) 144/87 108/47 (67) 114/60 (78) Pulse Ox 91 88 O2 Delivery Room Air Room Air Room Air 09/12/19 09/12/19 09/12/19 09/12/19 06:18 08:39 08:39 08:40 Temp 98.1 98.1 Pulse 73 64 73 64 Resp 18 B/P (MAP) 139/88 (105) 136/82 136/82 136/82 Pulse Ox 92 O2 Delivery Room Air 09/12/19 08:41 Pulse 64 B/P (MAP) 136/82 Intake and Output 09/11/19 09/11/19 09/12/19 15:00 23:00 07:00 Intake Total 900 ml 360 ml 0 ml Balance 900 ml 360 ml 0 ml ALYSSA SOLANO MD Sep 12, 2019 09:30
--- NOTE | 2019-09-12 10:29 | PDOC ---
CARDIOLOGY PROGRESS NOTE SUBJECTIVE: No acute events overnight. Denies any chest pain. No dyspnea. at bedside today. OBJECTIVE: Vital Signs/I&O: Vital Signs Date Time Temp Pulse Resp B/P (MAP) Pulse Ox O2 Delivery O2 Flow Rate FiO2 09/12/19 08:41 64 136/82 09/12/19 06:18 98.1 18 92 Room Air 98.1 I & O 09/11/19 09/11/19 09/12/19 15:00 23:00 07:00 Intake Total 900 ml 360 ml 0 ml Balance 900 ml 360 ml 0 ml Objective: GEN.: No apparent distress. Alert and oriented. HEENT: Head is normocephalic, atraumatic NECK: Supple. LUNGS: Clear to auscultation. HEART: RRR, S1, S2 present. Peripheral pulses intact ABDOMEN: Soft, nontender. Positive bowel sounds. EXTREMITIES: Without any cyanosis. NEUROLOGIC: Normal speech, normal tone PSYCHIATRIC: Normal affect, normal mood. SKIN: No ulcerations ASSESSMENT: 1. Acute on chronic diastolic HF 2. HTN 3. Severe 3V CAD with LM involvement. PLAN: 1. I had an extensive discussion again with the patient and his in person today. -We talked about the nature of 3V CAD and discussed optimal treatment options. I explained to the patient and his that CABG would be the most optimal treatment option. The patient and his have had a discussion with the surgeon Dr. Dunn and after a thorough discussion amongst themselves, the surgeon and myself, they have chosen to proceed with PCI. I clearly explained the risks of mortality and morbidity with high risk left main PCI that will require atherectomy. The patient and are in agreement and wish to proceed with PCI. Will optimize renal function today with hydration and plan for PCI tomorrow with Impella support and orbital atherectomy of the left main and RCA. Thanks Justicifation of Admission Dx: Justifications for Admission: Justification of Admission Dx: Yes CHF: Hemodynamic Instability MANSI HART MD Sep 12, 2019 10:29
[2019-09-12 11:00] VITALS: BP 111/76
[2019-09-12 11:38] LABS: ALBUMIN 3.3 g/dL (3.4-5.0); CALCIUM 9.1 mg/dL (8.5-10.1); CREATININE 1.4 mg/dL (0.7-1.3); GFR 50.1; POTASSIUM 4.3 mmol/L (3.5-5.1); TOTAL BILIRUBIN 0.2 mg/dL (0.2-1.0); TOTAL PROTEIN 6.7 g/dL (6.4-8.2)
--- NOTE | 2019-09-12 13:08 | NUR ---
SS following for discharge planning. SS reviewed pt chart and discussed with pt RN. Pt is from home with spouse and is currently on room air. SS will continue to follow for discharge planning.
--- NOTE | 2019-09-12 14:15 | PDOC2 ---
CONSULT Date of Consult Date of Consult DATE: 09/12/19 TIME: 14:05 Reason for Consult Reason for Consult: CKD Source Source: Chart review History of Present Illness Reason for Visit: Pt is a 69 year old CM returns to the hospital after dc 2 days and reports he should not have left. he has been having more shortness of breath.Hospitalized on 09/08. Plan was to have some stents by Dr. Mata. He denies any chest pain, palpitations, diaphoresis, nausea, vomiting, diarrhea, abdominal pain, fever, cough, or wheezing. Patient states that the shortness of breath has increased so that he is short of breath even when he is just lying down. He denies any headache or vision changes. The patient states that since he has been discharged he has had a few dizzy spells but denies any syncope. Patient also reports that he has had some intermittent episodes of left-sided chest pain that feels like a sharp twinge. He currently denies any pain. Denies any urinary complaints Currently he is feeling well. He got upset stating that no one has told him that heart procedure can affect his kidneys . Past Medical History Cardiovascular: CAD, HTN, [place], Hyperlipidemia Pulmonary: COPD CENTRAL NERVOUS SYSTEM: CVA GI: GERD Heme/Onc: No pertinent hx Hepatobiliary: No pertinent hx Psych: No pertinent hx Musculoskeletal: Osteoarthritis Rheumatologic: No pertinent hx Infectious disease: No pertinent hx Renal/: No pertinent hx Endocrine: No pertinent hx Past Surgical History Past Surgical History: Total hip replacement, Other Family History Family History: Coronary Artery Disease Social History No ALCOHOL: rare Drugs: None Lives: with Family Current Problem List Problem List Problems Medical Problems: (1) Shortness of breath at rest Status: Acute Current Medications Current Medications Current Medications Allopurinol (Zyloprim) 300 mg QEVNG PO Last administered on 09/11/19at 17:26; Start 09/09/19 at 18:00 Amlodipine Besylate (Norvasc) 10 mg DAILY PO Last administered on 09/12/19at 08:41; Start 09/10/19 at 09:00 Aspirin (Ecotrin) 81 mg DAILYWBKFT PO Last administered on 09/12/19at 08:38; Start 09/10/19 at 08:00 Clopidogrel Bisulfate (Plavix) 75 mg DAILYWBKFT PO Last administered on at 08:38; Start 09/10/19 at 08:00 Hydralazine HCl (Apresoline) 50 mg BID PO Last administered on 09/12/19at 08:40; Start 09/09/19 at 21:00 Hydrochlorothiazide (Hydrodiuril) 25 mg DAILY PO Last administered on 09/10/19at 08:11; Start 09/10/19 at 09:00; Stop 09/10/19 at 14:09; Status DC Carvedilol (Coreg) 25 mg BIDWMEALS PO Last administered on 09/12/19at 08:39; Start 09/09/19 at 17:00 Isosorbide Mononitrate (Imdur) 60 mg DAILY PO Last administered on 09/12/19at 08:39; Start 09/10/19 at 09:00 Atorvastatin Calcium (Lipitor) 10 mg QHS PO Last administered on 09/11/19at 20:27; Start 09/09/19 at 21:00 Enoxaparin Sodium (Lovenox Per Pharmacy Prophylaxis Dosing) 1 each PRN DAILY PRN MC SEE COMMENTS; Start 09/09/19 at 18:45 Enoxaparin Sodium (Lovenox 40mg Syringe) 40 mg Q24H SQ Last administered on 09/11/19at 20:28; Start 09/09/19 at 21:00 Zolpidem Tartrate (Ambien) 5 mg PRN QHS PRN PO INSOMNIA; Start 09/09/19 at 18:45 Lorazepam (Ativan Inj) 1 mg 1X ONCE IVP ; Start 09/11/19 at 11:00; Stop 09/11/19 at 11:11; Status DC Sumatriptan Succinate (Imitrex) 50 mg 1X ONCE PO ; Start 09/11/19 at 11:00; Stop 09/11/19 at 11:11; Status DC Acetaminophen/ Butalbital/ Caffeine (Fioricet) 1 tab PRN Q6HRS PRN PO MIGRAINE HEADACHE; Start 09/11/19 at 11:00 Active Scripts Active Clopidogrel (Clopidogrel Bisulfate) 75 Mg Tablet 75 Mg PO DAILYWBKFT Aspirin Ec (Aspirin) 81 Mg Tablet.dr 81 Mg PO DAILYWBKFT Reported Hydralazine Hcl 50 Mg Tablet 1 Tab PO BID Carvedilol 25 Mg Tablet 25 Mg PO BIDWMEALS Allopurinol 300 Mg Tablet 1 Tab PO QEVNG Pravastatin Sodium 40 Mg Tablet 1 Tab PO QHS Hydrochlorothiazide Tablet (Hydrochlorothiazide) 25 Mg Tablet 1 Tab PO DAILY Isosorbide Mononitrate Er (Isosorbide Mononitrate) 60 Mg Tab.er.24h 1 Tab PO DAILY Amlodipine Besylate 10 Mg Tablet 10 Mg PO DAILY Allergies Allergies: Coded Allergies: lisinopril (Verified Allergy, Severe, swelling, 06/23/16) shellfish derived (Verified Allergy, Severe, swelling, 06/23/16) strawberry (Verified Allergy, Severe, swelling, 06/23/16) tomato (Verified Allergy, Severe, swelling, 06/23/16) ROS Review of System Per HPI Physical Exam Physical Exam GEN.: No apparent distress. Alert and oriented. HEENT: Head is normocephalic, atraumatic NECK: Supple. LUNGS: Clear to auscultation. HEART: RRR, S1, S2 present. Peripheral pulses intact ABDOMEN: Soft, nontender. Positive bowel sounds. EXTREMITIES: Without any cyanosis or edema NEUROLOGIC: Normal speech, normal tone PSYCHIATRIC: Normal affect, normal mood. SKIN: No ulcerations or rash No mina Vital Signs Vital Signs Date Time Temp Pulse Resp B/P (MAP) Pulse Ox O2 Delivery O2 Flow Rate FiO2 09/12/19 11:00 98.1 69 18 111/76 (88) 95 Room Air 98.1 Assessment & Plan CKD stage 3 - Baseline Cr 1.4.1.8 at least since 2014 Stable renal function, E-Lytes stable Supportive care, avoid nephrotoxins , IV hydration for HANDY prophylaxiis , Risks dw Pt , Daily BMP Acute on chronic diastolic HF HTN- cardiology managing Severe 3V CAD with LM involvement- Scheduled for PCI with Impella support and orbital atherectomy of the left main and RCA scheduled for tomorrow Labs Labs Laboratory Tests Test 09/11/19 05:00 09/12/19 10:25 White Blood Count 8.0 x10^3/uL (4.0-11.0) Red Blood Count 5.25 x10^6/uL (4.30-5.70) Hemoglobin 16.0 g/dL (13.0-17.5) Hematocrit 48.1 % (39.0-53.0) Mean Corpuscular Volume 92 fL (79-100) Mean Corpuscular Hemoglobin 31 pg (25-35) Mean Corpuscular Hemoglobin Concent 33 g/dL (31-37) Red Cell Distribution Width 16.3 % (11.5-14.5) Platelet Count 192 x10^3/uL (140-400) Neutrophils (%) (Auto) 64 % (31-73) Lymphocytes (%) (Auto) 28 % (24-48) Monocytes (%) (Auto) 6 % (0-9) Eosinophils (%) (Auto) 2 % (0-3) Basophils (%) (Auto) 1 % (0-3) Neutrophils # (Auto) 5.1 x10^3/uL (1.8-7.7) Lymphocytes # (Auto) 2.2 x10^3/uL (1.0-4.8) Monocytes # (Auto) 0.5 x10^3/uL (0.0-1.1) Eosinophils # (Auto) 0.1 x10^3/uL (0.0-0.7) Basophils # (Auto) 0.0 x10^3/uL (0.0-0.2) Sodium Level 138 mmol/L (136-145) 140 mmol/L (136-145) Potassium Level 4.0 mmol/L (3.5-5.1) 4.3 mmol/L (3.5-5.1) Chloride Level 100 mmol/L (98-107) 101 mmol/L (98-107) Carbon Dioxide Level 26 mmol/L (21-32) 30 mmol/L (21-32) Anion Gap 12 (6-14) 9 (6-14) Blood Urea Nitrogen 31 mg/dL (8-26) 32 mg/dL (8-26) Creatinine 1.5 mg/dL (0.7-1.3) 1.4 mg/dL (0.7-1.3) Estimated GFR (Cockcroft-Gault) 46.3 50.1 BUN/Creatinine Ratio 21 (6-20) 23 (6-20) Glucose Level 184 mg/dL (70-99) 137 mg/dL (70-99) Calcium Level 9.1 mg/dL (8.5-10.1) 9.1 mg/dL (8.5-10.1) Total Bilirubin 0.2 mg/dL (0.2-1.0) 0.2 mg/dL (0.2-1.0) Aspartate Amino Transf (AST/SGOT) 18 U/L (15-37) 29 U/L (15-37) Alanine Aminotransferase (ALT/SGPT) 60 U/L (16-63) 73 U/L (16-63) Alkaline Phosphatase 86 U/L (46-116) 89 U/L (46-116) Total Protein 6.7 g/dL (6.4-8.2) 6.7 g/dL (6.4-8.2) Albumin 3.0 g/dL (3.4-5.0) 3.3 g/dL (3.4-5.0) Albumin/Globulin Ratio 0.8 (1.0-1.7) 1.0 (1.0-1.7) Laboratory Tests Test 09/12/19 10:25 Sodium Level 140 mmol/L (136-145) Potassium Level 4.3 mmol/L (3.5-5.1) Chloride Level 101 mmol/L (98-107) Carbon Dioxide Level 30 mmol/L (21-32) Anion Gap 9 (6-14) Blood Urea Nitrogen 32 mg/dL (8-26) Creatinine 1.4 mg/dL (0.7-1.3) Estimated GFR (Cockcroft-Gault) 50.1 BUN/Creatinine Ratio 23 (6-20) Glucose Level 137 mg/dL (70-99) Calcium Level 9.1 mg/dL (8.5-10.1) Total Bilirubin 0.2 mg/dL (0.2-1.0) Aspartate Amino Transf (AST/SGOT) 29 U/L (15-37) Alanine Aminotransferase (ALT/SGPT) 73 U/L (16-63) Alkaline Phosphatase 89 U/L (46-116) Total Protein 6.7 g/dL (6.4-8.2) Albumin 3.3 g/dL (3.4-5.0) Albumin/Globulin Ratio 1.0 (1.0-1.7) Review All relevant outside records, renal labs, imaging studies, telemetry/EKG's were reviewed. LUIS MARTEL MD Sep 12, 2019 14:15
[2019-09-12 15:00] VITALS: BP 110/80
[2019-09-12 15:19] LABS: BILIRUBIN,URINE NEGATIVE (NEG); CLARITY,URINE CLEAR; COLOR,URINE YELLOW; NITRITE,URINE NEGATIVE (NEG); PROTEIN,URINE NEGATIVE (NEG-TRACE); UROBILINOGEN,URINE 0.2 mg/dL (0.2 mg/dL)
[2019-09-12 15:43] LABS: BACTERIA,URINE FEW /HPF (0-FEW); SQUAMOUS EPITHELIAL CELL,UR FEW /LPF
[2019-09-12] MEDS: ALLOPURINOL 300 MG TABLET. PO SCH (17:30)
[2019-09-12 19:21] VITALS: BP 135/71
[2019-09-12] MEDS: IV NORMAL SALINE 1000ML BAG 1,000 ML IV SCH (19:50)
[2019-09-12] MEDS: ZOLPIDEM 5 MG TABLET. PO PRN (21:05)
[2019-09-12] MEDS: ENOXAPARIN 40 MG/0.4 ML SYRINGE. SQ SCH (21:05)
[2019-09-12] MEDS: ATORVASTATIN CALCIUM 10 MG TABLET. PO SCH (21:05)
[2019-09-12 22:50] VITALS: BP 105/57
[2019-09-13] VITALS (18 sets, daily range): BP systolic 108–153; BP diastolic 60–96
[2019-09-13 05:30] LABS: ALBUMIN 3.1 g/dL (3.4-5.0); CREATININE 1.4 mg/dL (0.7-1.3); GFR 50.1; PHOSPHORUS 3.9 mg/dL (2.6-4.7); POTASSIUM 4.4 mmol/L (3.5-5.1)
[2019-09-13] MEDS: IV NORMAL SALINE 1000ML BAG 1,000 ML IV SCH (07:05)
[2019-09-13] MEDS: ASPIRIN ENTERIC COATED 81 MG TABLET.DR. PO SCH (07:46)
[2019-09-13] MEDS: CLOPIDOGREL BISULFATE 75 MG TABLET PO SCH (07:46)
[2019-09-13] MEDS: ISOSORBIDE MONONITRATE ER 30 MG TAB.ER.24H PO SCH (07:48)
[2019-09-13] MEDS: amLODIPine BESYLATE 10 MG TABLET PO SCH (07:48)
[2019-09-13] MEDS: CARVEDILOL 12.5 MG TABLET. PO SCH ×2 (07:48→19:23)
--- NOTE | 2019-09-13 09:05 | PDOC ---
PROGRESS NOTES Chief Complaint Chief Complaint IMPRESSION CAD, left main disease, needs intervention RCA is a large caliber vessel with a proximal 70% stenosis, followed by a patent stent, a distal 70% stenosis. LM is a large caliber vessel with an eccentric distal 70% stenosis. . acute systolic CHF obese DM2 CKD STAGE 3-4 htn hyper lipids headache, migrane, PLAN NEPHROLOGY CONSULT Severe 3V CAD with LM involvement- Scheduled for PCI with Impella support and orbital atherectomy of the left main and RCA scheduled for today 38 min pt exam, chart review, > 50% of time spent with exam, chart review, pt care coordination History of Present Illness History of Present Illness plan cardiac cath and stents 09/12 , he declined having CABG Vitals Vitals Vital Signs Date Time Temp Pulse Resp B/P (MAP) Pulse Ox O2 Delivery O2 Flow Rate FiO2 09/13/19 07:48 68 09/13/19 07:00 98.1 18 145/83 (103) 94 Room Air 98.1 Physical Exam General: Alert, Oriented X3, Cooperative, No acute distress Heart: Regular rate, Normal S2 Lungs: Clear, Other Abdomen: Normal bowel sounds, Soft Extremities: No cyanosis, Normal pulses, Other (tr edema) Skin: No rashes, No significant lesion Labs LABS Laboratory Tests Test 09/12/19 10:25 09/12/19 15:10 09/13/19 04:28 Sodium Level 140 mmol/L (136-145) 138 mmol/L (136-145) Potassium Level 4.3 mmol/L (3.5-5.1) 4.4 mmol/L (3.5-5.1) Chloride Level 101 mmol/L (98-107) 103 mmol/L (98-107) Carbon Dioxide Level 30 mmol/L (21-32) 25 mmol/L (21-32) Anion Gap 9 (6-14) 10 (6-14) Blood Urea Nitrogen 32 mg/dL (8-26) 28 mg/dL (8-26) Creatinine 1.4 mg/dL (0.7-1.3) 1.4 mg/dL (0.7-1.3) Estimated GFR (Cockcroft-Gault) 50.1 50.1 BUN/Creatinine Ratio 23 (6-20) Glucose Level 137 mg/dL (70-99) 117 mg/dL (70-99) Calcium Level 9.1 mg/dL (8.5-10.1) 9.0 mg/dL (8.5-10.1) Total Bilirubin 0.2 mg/dL (0.2-1.0) Aspartate Amino Transf (AST/SGOT) 29 U/L (15-37) Alanine Aminotransferase (ALT/SGPT) 73 U/L (16-63) Alkaline Phosphatase 89 U/L (46-116) Total Protein 6.7 g/dL (6.4-8.2) Albumin 3.3 g/dL (3.4-5.0) 3.1 g/dL (3.4-5.0) Albumin/Globulin Ratio 1.0 (1.0-1.7) Urine Collection Type Unknown Urine Color Yellow Urine Clarity Clear Urine pH 6.0 (<5.0-8.0) Urine Specific [place] 1.020 (1.000-1.030) Urine Protein Negative mg/dL (NEG-TRACE) Urine Glucose (UA) Negative mg/dL (NEG) Urine Ketones (Stick) Negative mg/dL (NEG) Urine Blood Negative (NEG) Urine Nitrite Negative (NEG) Urine Bilirubin Negative (NEG) Urine Urobilinogen Dipstick 0.2 mg/dL (0.2 mg/dL) Urine Leukocyte Esterase Negative (NEG) Urine RBC 1-2 /HPF (0-2) Urine WBC 1-4 /HPF (0-4) Urine Squamous Epithelial Cells Few /LPF Urine Bacteria Few /HPF (0-FEW) Urine Mucus Slight /LPF Phosphorus Level 3.9 mg/dL (2.6-4.7) Assessment and Plan Assessmemt and Plan Problems Medical Problems: (1) Shortness of breath at rest Status: Acute Comment Review of Relevant I have reviewed the following items thu (where applicable) has been applied. Labs Laboratory Tests Test 09/12/19 10:25 09/12/19 15:10 09/13/19 04:28 Sodium Level 140 mmol/L (136-145) 138 mmol/L (136-145) Potassium Level 4.3 mmol/L (3.5-5.1) 4.4 mmol/L (3.5-5.1) Chloride Level 101 mmol/L (98-107) 103 mmol/L (98-107) Carbon Dioxide Level 30 mmol/L (21-32) 25 mmol/L (21-32) Anion Gap 9 (6-14) 10 (6-14) Blood Urea Nitrogen 32 mg/dL (8-26) 28 mg/dL (8-26) Creatinine 1.4 mg/dL (0.7-1.3) 1.4 mg/dL (0.7-1.3) Estimated GFR (Cockcroft-Gault) 50.1 50.1 BUN/Creatinine Ratio 23 (6-20) Glucose Level 137 mg/dL (70-99) 117 mg/dL (70-99) Calcium Level 9.1 mg/dL (8.5-10.1) 9.0 mg/dL (8.5-10.1) Total Bilirubin 0.2 mg/dL (0.2-1.0) Aspartate Amino Transf (AST/SGOT) 29 U/L (15-37) Alanine Aminotransferase (ALT/SGPT) 73 U/L (16-63) Alkaline Phosphatase 89 U/L (46-116) Total Protein 6.7 g/dL (6.4-8.2) Albumin 3.3 g/dL (3.4-5.0) 3.1 g/dL (3.4-5.0) Albumin/Globulin Ratio 1.0 (1.0-1.7) Urine Collection Type Unknown Urine Color Yellow Urine Clarity Clear Urine pH 6.0 (<5.0-8.0) Urine Specific [place] 1.020 (1.000-1.030) Urine Protein Negative mg/dL (NEG-TRACE) Urine Glucose (UA) Negative mg/dL (NEG) Urine Ketones (Stick) Negative mg/dL (NEG) Urine Blood Negative (NEG) Urine Nitrite Negative (NEG) Urine Bilirubin Negative (NEG) Urine Urobilinogen Dipstick 0.2 mg/dL (0.2 mg/dL) Urine Leukocyte Esterase Negative (NEG) Urine RBC 1-2 /HPF (0-2) Urine WBC 1-4 /HPF (0-4) Urine Squamous Epithelial Cells Few /LPF Urine Bacteria Few /HPF (0-FEW) Urine Mucus Slight /LPF Phosphorus Level 3.9 mg/dL (2.6-4.7) Laboratory Tests Test 09/12/19 10:25 09/12/19 15:10 09/13/19 04:28 Sodium Level 140 mmol/L (136-145) 138 mmol/L (136-145) Potassium Level 4.3 mmol/L (3.5-5.1) 4.4 mmol/L (3.5-5.1) Chloride Level 101 mmol/L (98-107) 103 mmol/L (98-107) Carbon Dioxide Level 30 mmol/L (21-32) 25 mmol/L (21-32) Anion Gap 9 (6-14) 10 (6-14) Blood Urea Nitrogen 32 mg/dL (8-26) 28 mg/dL (8-26) Creatinine 1.4 mg/dL (0.7-1.3) 1.4 mg/dL (0.7-1.3) Estimated GFR (Cockcroft-Gault) 50.1 50.1 BUN/Creatinine Ratio 23 (6-20) Glucose Level 137 mg/dL (70-99) 117 mg/dL (70-99) Calcium Level 9.1 mg/dL (8.5-10.1) 9.0 mg/dL (8.5-10.1) Total Bilirubin 0.2 mg/dL (0.2-1.0) Aspartate Amino Transf (AST/SGOT) 29 U/L (15-37) Alanine Aminotransferase (ALT/SGPT) 73 U/L (16-63) Alkaline Phosphatase 89 U/L (46-116) Total Protein 6.7 g/dL (6.4-8.2) Albumin 3.3 g/dL (3.4-5.0) 3.1 g/dL (3.4-5.0) Albumin/Globulin Ratio 1.0 (1.0-1.7) Urine Collection Type Unknown Urine Color Yellow Urine Clarity Clear Urine pH 6.0 (<5.0-8.0) Urine Specific [place] 1.020 (1.000-1.030) Urine Protein Negative mg/dL (NEG-TRACE) Urine Glucose (UA) Negative mg/dL (NEG) Urine Ketones (Stick) Negative mg/dL (NEG) Urine Blood Negative (NEG) Urine Nitrite Negative (NEG) Urine Bilirubin Negative (NEG) Urine Urobilinogen Dipstick 0.2 mg/dL (0.2 mg/dL) Urine Leukocyte Esterase Negative (NEG) Urine RBC 1-2 /HPF (0-2) Urine WBC 1-4 /HPF (0-4) Urine Squamous Epithelial Cells Few /LPF Urine Bacteria Few /HPF (0-FEW) Urine Mucus Slight /LPF Phosphorus Level 3.9 mg/dL (2.6-4.7) Medications Current Medications Allopurinol (Zyloprim) 300 mg QEVNG PO Last administered on 09/12/19 17:30; Start 09/09/19 at 18:00 Amlodipine Besylate (Norvasc) 10 mg DAILY PO Last administered on 09/13/19at 07:48; Start 09/10/19 at 09:00 Aspirin (Ecotrin) 81 mg DAILYWBKFT PO Last administered on 09/13/19 07:46; Start 09/10/19 at 08:00 Clopidogrel Bisulfate (Plavix) 75 mg DAILYWBKFT PO Last administered on 09/13/19 07:46; Start 09/10/19 at 08:00 Hydralazine HCl (Apresoline) 50 mg BID PO Last administered on 09/13/19 07:46; Start 09/09/19 at 21:00 Hydrochlorothiazide (Hydrodiuril) 25 mg DAILY PO Last administered on 09/10/19at 08:11; Start 09/10/19 at 09:00; Stop 09/10/19 at 14:09; Status DC Carvedilol (Coreg) 25 mg BIDWMEALS PO Last administered on 09/13/19at 07:48; Start 09/09/19 at 17:00 Isosorbide Mononitrate (Imdur) 60 mg DAILY PO Last administered on 09/13/19at 07:48; Start 09/10/19 at 09:00 Atorvastatin Calcium (Lipitor) 10 mg QHS PO Last administered on 09/12/19 21:05; Start 09/09/19 at 21:00 Enoxaparin Sodium (Lovenox Per Pharmacy Prophylaxis Dosing) 1 each PRN DAILY PRN MC SEE COMMENTS; Start 09/09/19 at 18:45 Enoxaparin Sodium (Lovenox 40mg Syringe) 40 mg Q24H SQ Last administered on 09/12/19 21:05; Start 09/09/19 at 21:00 Zolpidem Tartrate (Ambien) 5 mg PRN QHS PRN PO INSOMNIA Last administered on 6/15/20at 21:05; Start 09/09/19 at 18:45 Lorazepam (Ativan Inj) 1 mg 1X ONCE IVP ; Start 09/11/19 at 11:00; Stop 09/11/19 at 11:11; Status DC Sumatriptan Succinate (Imitrex) 50 mg 1X ONCE PO ; Start 09/11/19 at 11:00; Stop 09/11/19 at 11:11; Status DC Acetaminophen/ Butalbital/ Caffeine (Fioricet) 1 tab PRN Q6HRS PRN PO MIGRAINE HEADACHE; Start 09/11/19 at 11:00 Sodium Chloride 1,000 ml @ 75 mls/hr [id number] IV Last administered on 09/13/19at 07:05; Start 09/12/19 at 20:00 Active Scripts Active Clopidogrel (Clopidogrel Bisulfate) 75 Mg Tablet 75 Mg PO DAILYWBKFT Aspirin Ec (Aspirin) 81 Mg Tablet.dr 81 Mg PO DAILYWBKFT Reported Hydralazine Hcl 50 Mg Tablet 1 Tab PO BID Carvedilol 25 Mg Tablet 25 Mg PO BIDWMEALS Allopurinol 300 Mg Tablet 1 Tab PO QEVNG Pravastatin Sodium 40 Mg Tablet 1 Tab PO QHS Hydrochlorothiazide Tablet (Hydrochlorothiazide) 25 Mg Tablet 1 Tab PO DAILY Isosorbide Mononitrate Er (Isosorbide Mononitrate) 60 Mg Tab.er.24h 1 Tab PO DAILY Amlodipine Besylate 10 Mg Tablet 10 Mg PO DAILY Vitals/I & O Vital Sign - Last 24 Hours 09/12/19 09/12/19 09/12/19 09/12/19 11:00 15:00 17:30 19:21 Temp 98.1 98.0 98.2 98.1 98.0 98.2 Pulse 69 71 71 75 Resp 18 18 18 B/P (MAP) 111/76 (88) 110/80 (90) 135/71 (92) Pulse Ox 95 95 93 O2 Delivery Room Air Room Air Room Air 09/12/19 09/12/19 09/12/19 09/13/19 19:47 21:05 22:50 02:41 Temp 98.8 98.4 98.8 98.4 Pulse 75 77 81 Resp 18 18 B/P (MAP) 135/71 105/57 (73) 145/77 (99) Pulse Ox 91 91 O2 Delivery Room Air Room Air Room Air 09/13/19 09/13/19 09/13/19 09/13/19 07:00 07:46 07:48 07:48 Temp 98.1 98.1 Pulse 62 70 70 70 Resp 18 B/P (MAP) 145/83 (103) Pulse Ox 94 O2 Delivery Room Air 09/13/19 07:48 Pulse 68 Intake and Output 09/12/19 09/12/19 09/13/19 15:00 23:00 07:00 Intake Total 0 ml 0 ml Balance 0 ml 0 ml ALYSSA SOLANO MD Sep 13, 2019 09:05
[2019-09-13] MEDS ORDERED: IODIXANOL 320 MG/ML 100 ML VIAL. ONE ×3 (09:14→13:57)
[2019-09-13] MEDS ORDERED: LIDOCAINE 1% Multi-Dose 20 ML VIAL. ONE (09:14)
--- NOTE | 2019-09-13 09:35 | PDOC ---
SUBJECTIVE ROS No complaints this am, scheduled for Procedure later today OBJECTIVE Vital Signs Vital Signs Date Time Temp Pulse Resp B/P (MAP) Pulse Ox O2 Delivery O2 Flow Rate FiO2 09/13/19 07:48 68 09/13/19 07:00 98.1 18 145/83 (103) 94 Room Air 98.1 I & 0 Intake and Output 09/13/19 07:00 Intake Total 0 ml Balance 0 ml Intake Oral 0 ml PHYSICAL EXAM Physical Exam GEN.: No apparent distress. Alert and oriented. HEENT: Head is normocephalic, atraumatic NECK: Supple. LUNGS: Clear to auscultation. HEART: RRR, S1, S2 present. Peripheral pulses intact ABDOMEN: Soft, nontender. Positive bowel sounds. EXTREMITIES: Without any cyanosis or edema NEUROLOGIC: Normal speech, normal tone PSYCHIATRIC: Normal affect, normal mood. SKIN: No ulcerations or rash No mina DIAGNOSIS/ASSESSMENT Assessment & Plan CKD stage 3 - Baseline Cr 1.4.1.8 at least since 2014 Stable renal function, E-Lytes stable Supportive care, avoid nephrotoxins , IV hydration for HANDY prophylaxiis , Risks dw Pt , Daily BMP Acute on chronic diastolic HF HTN- cardiology managing Severe 3V CAD with LM involvement- Scheduled for PCI with Impella support and orbital atherectomy of the left main and RCA scheduled for today COMMENT/RELEVANT DATA Meds Current Medications Medications (Trade) Dose Ordered Sig/Sandee Start Time Stop Time Status Last Admin Dose Admin Acetaminophen/ Butalbital/ Caffeine (Fioricet) 1 tab PRN Q6HRS PRN 09/11/19 11:00 Allopurinol (Zyloprim) 300 mg QEVNG 09/09/19 18:00 09/12/19 17:30 300 MG Amlodipine Besylate (Norvasc) 10 mg DAILY 09/10/19 09:00 09/13/19 07:48 10 MG Aspirin (Ecotrin) 81 mg DAILYWBKFT 09/10/19 08:00 09/13/19 07:46 81 MG Atorvastatin Calcium (Lipitor) 10 mg QHS 09/09/19 21:00 09/12/19 21:05 10 MG Carvedilol (Coreg) 25 mg BIDWMEALS 09/09/19 17:00 09/13/19 07:48 25 MG Clopidogrel Bisulfate (Plavix) 75 mg DAILYWBKFT 09/10/19 08:00 09/13/19 07:46 75 MG Enoxaparin Sodium (Lovenox 40mg Syringe) 40 mg Q24H 09/09/19 21:00 09/12/19 21:05 40 MG Enoxaparin Sodium (Lovenox Per Pharmacy Prophylaxis Dosing) 1 each PRN DAILY PRN 09/09/19 18:45 Heparin Sodium/ Sodium Chloride 1,000 ml @ As Directed STK-MED ONCE 09/13/19 09:14 09/13/19 09:14 DC Hydralazine HCl (Apresoline) 50 mg BID 09/09/19 21:00 09/13/19 07:46 50 MG Hydrochlorothiazide (Hydrodiuril) 25 mg DAILY 09/10/19 09:00 09/10/19 14:09 DC 09/10/19 08:11 25 MG Iodixanol (Visipaque 320) 100 ml STK-MED ONCE 09/13/19 09:14 09/13/19 09:14 DC Isosorbide Mononitrate (Imdur) 60 mg DAILY 09/10/19 09:00 09/13/19 07:48 60 MG Lidocaine HCl (Lidocaine 1% 20ml Vial) 20 ml STK-MED ONCE 09/13/19 09:14 09/13/19 09:14 DC Lorazepam (Ativan Inj) 1 mg 1X ONCE 09/11/19 11:00 09/11/19 11:11 DC Sodium Chloride 1,000 ml @ 75 mls/hr [id number] 09/12/19 20:00 09/13/19 07:05 75 MLS/HR Sumatriptan Succinate (Imitrex) 50 mg 1X ONCE 09/11/19 11:00 09/11/19 11:11 DC Zolpidem Tartrate (Ambien) 5 mg PRN QHS PRN 09/09/19 18:45 09/12/19 21:05 5 MG Lab Laboratory Tests Test 09/12/19 10:25 09/12/19 15:10 09/13/19 04:28 Sodium Level 140 mmol/L (136-145) 138 mmol/L (136-145) Potassium Level 4.3 mmol/L (3.5-5.1) 4.4 mmol/L (3.5-5.1) Chloride Level 101 mmol/L (98-107) 103 mmol/L (98-107) Carbon Dioxide Level 30 mmol/L (21-32) 25 mmol/L (21-32) Anion Gap 9 (6-14) 10 (6-14) Blood Urea Nitrogen 32 mg/dL (8-26) 28 mg/dL (8-26) Creatinine 1.4 mg/dL (0.7-1.3) 1.4 mg/dL (0.7-1.3) Estimated GFR (Cockcroft-Gault) 50.1 50.1 BUN/Creatinine Ratio 23 (6-20) Glucose Level 137 mg/dL (70-99) 117 mg/dL (70-99) Calcium Level 9.1 mg/dL (8.5-10.1) 9.0 mg/dL (8.5-10.1) Total Bilirubin 0.2 mg/dL (0.2-1.0) Aspartate Amino Transf (AST/SGOT) 29 U/L (15-37) Alanine Aminotransferase (ALT/SGPT) 73 U/L (16-63) Alkaline Phosphatase 89 U/L (46-116) Total Protein 6.7 g/dL (6.4-8.2) Albumin 3.3 g/dL (3.4-5.0) 3.1 g/dL (3.4-5.0) Albumin/Globulin Ratio 1.0 (1.0-1.7) Urine Collection Type Unknown Urine Color Yellow Urine Clarity Clear Urine pH 6.0 (<5.0-8.0) Urine Specific [place] 1.020 (1.000-1.030) Urine Protein Negative mg/dL (NEG-TRACE) Urine Glucose (UA) Negative mg/dL (NEG) Urine Ketones (Stick) Negative mg/dL (NEG) Urine Blood Negative (NEG) Urine Nitrite Negative (NEG) Urine Bilirubin Negative (NEG) Urine Urobilinogen Dipstick 0.2 mg/dL (0.2 mg/dL) Urine Leukocyte Esterase Negative (NEG) Urine RBC 1-2 /HPF (0-2) Urine WBC 1-4 /HPF (0-4) Urine Squamous Epithelial Cells Few /LPF Urine Bacteria Few /HPF (0-FEW) Urine Mucus Slight /LPF Phosphorus Level 3.9 mg/dL (2.6-4.7) Results All relevant outside records, renal labs, imaging studies, telemetry/EKG's were reviewed. Justicifation of Admission Dx: Justifications for Admission: Justification of Admission Dx: Yes CHF: Hemodynamic Instability LUIS MARTEL MD Sep 13, 2019 09:35
--- NOTE | 2019-09-13 10:57 | NUR ---
SW following. Discussed with RN, pt from home with spouse, room air. Pt having a heart cath procedure today. SW will continue to follow for any discharge planning needs.
[2019-09-13] MEDS ORDERED: MIDAZOLAM HCL/PF 2 MG/2 ML VIAL. ONE ×3 (12:18→14:16)
[2019-09-13] MEDS ORDERED: fentaNYL PF VIAL 100 MCG/2 ML VIAL ONE ×2 (12:18→12:51)
[2019-09-13] MEDS ORDERED: HEPARIN for IV BOLUS 10,000 UNIT/10 ML VIAL. ONE (12:18)
--- NOTE | 2019-09-13 12:25 | PDOC ---
MODERATE SEDATION ASSESSMENT RISKS/ALTERNATIVES Risks/Alternatives Risks and alternatives of this type of sedation and procedure discussed with: RISK/ALTERNATIVES: Patient H & P ON CHART H & P H & P on chart and reviewed for co-morbid conditions and appropriate labs. H&P ON CHART: Yes STATUS PREG STATUS ASSESSED: N/A MEDS/ALLERGIES REVIEWED Meds/Allergies Reviewed Medications and Allergies including time and route of recently administered narcotics and sedatives. MEDS/ALLERGIES REVIEWED: Yes ASA RATING ASA RATING: II AIRWAY ASSESSMENT Airway Assessment Airway patency, oral function limitations, presence of caps, crowns, dentures, partials, and ability to extend neck assessed. AIRWAY ASSESSMENT: Yes MALLAMPATI SCORE MALLAMPATI SCORE: II PRE-SEDATION ASSESSMENT PRE-SEDATION ASSESSMENT: Yes MANSI HART MD Sep 13, 2019 12:25
[2019-09-13] MEDS ORDERED: fentaNYL PF VIAL 100 MCG/2 ML VIAL IV ONE (13:45)
[2019-09-13] MEDS ORDERED: MIDAZOLAM HCL/PF 2 MG/2 ML VIAL. IV ONE (13:45)
[2019-09-13] MEDS ORDERED: HEPARIN for IV BOLUS 10,000 UNIT/10 ML VIAL. IV ONE (13:45)
[2019-09-13] MEDS ORDERED: LIDOCAINE 1% Multi-Dose 20 ML VIAL. INJ ONE (13:45)
[2019-09-13] MEDS ORDERED: IV DEXTROSE 5% 500 ML IV SCH (13:45)
[2019-09-13] MEDS ORDERED: IODIXANOL 320 MG/ML 100 ML VIAL. IART ONE (13:45)
[2019-09-13] MEDS ORDERED: CONTRAST GIVEN. MC PRN (14:00)
[2019-09-13] MEDS ORDERED: NITROGLYCERIN 200 MCG/2 ML SYRINGE FOR CATH/VASC LAB. ONE (14:16)
[2019-09-13] MEDS ORDERED: NITROGLYCERIN 200 MCG/2 ML SYRINGE FOR CATH/VASC LAB. IART ONE (15:15)
[2019-09-13] MEDS ORDERED: IV NORMAL SALINE 1000ML BAG 1,000 ML IV ONE (15:15)
[2019-09-13] MEDS ORDERED: CLOPIDOGREL BISULFATE 75 MG TABLET ONE (15:25)
[2019-09-13] MEDS ORDERED: CLOPIDOGREL BISULFATE 75 MG TABLET PO ONE (15:30)
[2019-09-13] MEDS: ALLOPURINOL 300 MG TABLET. PO SCH (19:23)
[2019-09-13] MEDS: ZOLPIDEM 5 MG TABLET. PO PRN (19:23)
[2019-09-13] MEDS: ATORVASTATIN CALCIUM 10 MG TABLET. PO SCH (20:42)
[2019-09-13] MEDS: RIVAROXABAN 10 MG TABLET. PO SCH (20:43)
[2019-09-14 03:00] VITALS: BP 136/82
[2019-09-14 04:23] LABS: CALCIUM 8.7 mg/dL (8.5-10.1); CREATININE 1.3 mg/dL (0.7-1.3); GFR 54.6; POTASSIUM 4.1 mmol/L (3.5-5.1)
[2019-09-14 07:00] VITALS: BP 137/90
--- NOTE | 2019-09-14 08:17 | CARD ---
MR#: [id number] Date of Study: 09/13/2019 Ordering Physician: MANSI MATA, Referring Physician: MANSI MATA, Tech: NATE YANEZ RTR APPROVED REPORT Technologist: NATE YANEZ RTR Nurse: Katrin Shah R.N. Procedure(s) performed: MODERATE SEDATION TIME: 183 MINUTES FLUORO TIME: 39.2 MIN DOSE: 507 GYCM2 CONTRAST: 254CC VISI LHC, Coronary angiography, Impella Insertion LM angioplasty, atherectomy and PCI LAD angioplasty, atherectomy and PCI IVUS of the LM and LAD Insertion of a short-term External heart assist system into heart, intraoperative, percutaneous appro ach, [id number] Assistance with cardiac output using impeller pump with continuous, [id number] [facility] Clinical Frailty Scale [facility] Clinical Frailty Scale: Moderately Frail Heart Failure Heart Failure: Yes If Yes, Newly Diagnosed: No If Yes, HF Type: Diastolic If Yes, NYHA Class: Class II PROCEDURE NARRATIVE Clinical indication: 69-year-old male with severe three-vessel coronary artery disease involving the left main. Severe at herosclerotic calcification of the coronary arteries. Patient presented with unstable angina and pro gressive exertional dyspnea with class III heart failure. Patient had an elevated left ventricular s ystolic pressure and given the patient's acute decompensation with high risk anatomy, a left ventricu lar assist device was necessary due to plans for atherectomy of high risk anatomy. Procedure details: After appropriate informed consent the bilateral groins were prepped and draped in usual sterile [facility] ion. A 6 Serbian sheath was placed in the right common femoral artery under lidocaine local anesthesi a with an 18-gauge needle and a J-tip guidewire. Subsequently, a 5 Serbian Omni Flush catheter was us ed to directly visualize the left common femoral artery. Under direct fluoroscopic visualization aft er confirmation of adequate anatomy and size of the femoral artery a 6 Serbian Terumo glide sheath usi ng a micropuncture needle was placed in the left common femoral artery. Subsequently, the sheath was upsized to a 8 Serbian sheath after a preclosed suture device was placed. Next, the left common femo ral artery was dilated with 10 Serbian sheath and subsequently a 12 Serbian sheath was placed with mode rate difficulty due to significant obesity. The patient was then heparinized for an ACT greater than 200. The patient already has been on aspirin and Plavix. Impella insertion: Next, a pigtail catheter was placed in the left ventricle using a J-tip guidewire. The J-tip guidewi re was removed and after confirmation of elevated LVEDP, a 0.025 inch Impella wire was placed in the left ventricle. Over this the Impella 2.5 catheter was inserted and placed in the appropriate positi on. Prompt uptake placed in left ventricle, arterial delivery to placed in aorta. Pump driveline ex its through the artery, incision and skin. Impella for cardiopulmonary support during high risk PCI involving decompensated heart failure, unprotected left main disease. Normal flows were obtained. PCI procedure: Next, a 6 Serbian EBU 3.5 guide catheter was used to engage the left main coronary artery. A pro-wate r wire was used to traverse the left main and LAD stenosis. A 2.5 mm balloon was used to exchange th e pro-water wire for a Viper wire. Next, atherectomy was performed of the left main and proximal LAD with a CSI 1.25 orbital atherectomy device. Multiple runs were performed. Next balloon angioplasty was performed of the proximal LAD with a 2.5 x 12 mm balloon and subsequently angioplasty was perfor med of the left main with the same balloon at 14 brandon. Next, a 3.5 x 12 mm stent was deployed in the proximal LAD at 14 brandon. The left main was again dilated with the stent balloon. Next, a 4.0 x 18 mm resolute drug-eluting stent was implanted in overlapping fashion with the previously placed proximal LAD stent. The overlap segment was then dilated with a 4 mm balloon. Next, intravascular ultrasoun d was performed of the left main and proximal LAD stent and this revealed some mall apposition at the level of the ostial LAD where there was an aneurysmal supposed tonic segment from the left main lesi on. This was then postdilated with a 4.5 mm balloon at nominal pressures. Repeat angiography demons trated excellent stent expansion with LAMAR-3 flow and no evidence of guide or wire related complicati ons. Diagnostic angiography of the right coronary artery was performed and due to significant procedural t anali, contrast load and lack of greater than 70% stenosis on the right coronary artery a decision was made to defer this for a later date if needed depending on the patient's symptoms. Impella removal: Next, the Impella pump was weaned down and removed without difficulty. The left-sided groin access s ite was then closed with the previously placed Perclose suture device. Hemostasis was also obtained with manual compression. Post PCI angiography of the left common femoral artery demonstrated no evid ence of extravasation and adequate distal flow. The right common femoral arterial sheath was removed via manual compression. Hemostasis was achieved without any complications. LAMAR Flow LAMAR Flow (Pre-Intervention): LAMAR-3 LAMAR Flow (Post-Intervention): LAMAR-3 LAMAR Flow LAMAR Flow (Pre-Intervention): LAMAR-3 LAMAR Flow (Post-Intervention): LAMAR-3 Conclusion 1. Acute on chronic diastolic heart failure, class III, LVEDP 18 mmHg 2. Severe three-vessel coronary artery disease with heavy calcification and left main involvement 3. Successful PCI, atherectomy and intravascular ultrasound of the left main with a resolute 4.0 x 1 8 mm drug-eluting stent 4. Successful PCI, atherectomy and intravascular ultrasound of the LAD with a resolute 3.5 x 12 mm s tent. Recommendations 1. Aspirin 81 mg daily 2. Continue Plavix 75 mg daily 3. Xarelto 2.5 mg p.o. twice daily to be started today and continued for 4 weeks with triple therapy and then transition to Plavix and Xarelto only for long-term. 4. We will consider staged PCI of the RCA if needed depending on symptom resolution. Signed by : Mansi Mata, Electronically Approved : 09/14/2019 08:17:03
[2019-09-14] MEDS: ASPIRIN ENTERIC COATED 81 MG TABLET.DR. PO SCH (08:29)
[2019-09-14] MEDS: ISOSORBIDE MONONITRATE ER 30 MG TAB.ER.24H PO SCH (08:29)
[2019-09-14] MEDS: CLOPIDOGREL BISULFATE 75 MG TABLET PO SCH (08:30)
[2019-09-14] MEDS: CARVEDILOL 12.5 MG TABLET. PO SCH ×2 (08:30→17:10)
[2019-09-14] MEDS: amLODIPine BESYLATE 10 MG TABLET PO SCH (08:32)
[2019-09-14] MEDS: RIVAROXABAN 10 MG TABLET. PO SCH (08:33)
--- NOTE | 2019-09-14 09:24 | PDOC ---
PROGRESS NOTES Chief Complaint Chief Complaint DISCHARGE DX CAD, left main disease, needs intervention RCA is a large caliber vessel with a proximal 70% stenosis, followed by a patent stent, a distal 70% stenosis. LM is a large caliber vessel with an eccentric distal 70% stenosis. . acute systolic CHF obese DM2 CKD STAGE 3-4 htn hyper lipids headache, migrane, PLAN NEPHROLOGY CONSULT Severe 3V CAD with LM involvement- Scheduled for PCI with Impella support and orbital atherectomy of the left main and RCA Severe 3V CAD with LM involvement: S/P PCI/atherectomy/MIRIAN with IVUS to LM/LAD. Well tolerated 09/12 Supportive care, avoid nephrotoxins FU Renal function post dc , Luis RN 34 min pt exam, chart review D/C PLANNING , > 50% of time spent with exam, chart review, pt care coordination History of Present Illness History of Present Illness plan cardiac cath and stents 09/12 , he declined having CABG Vitals Vitals Vital Signs Date Time Temp Pulse Resp B/P (MAP) Pulse Ox O2 Delivery O2 Flow Rate FiO2 09/14/19 08:32 71 137/90 09/14/19 07:00 98.2 18 95 Room Air 98.2 09/13/19 15:31 2.0 Physical Exam General: Alert, Oriented X3, Cooperative, No acute distress Heart: Regular rate, Normal S2 Lungs: Clear, Other Abdomen: Normal bowel sounds, Soft Extremities: No clubbing, No cyanosis, Normal pulses, Other (tr edema) Skin: No rashes, No significant lesion Labs LABS Laboratory Tests Test 09/13/19 13:06 09/13/19 13:51 09/13/19 14:37 09/14/19 04:00 Activated Clotting Time 188 sec (92-181) 221 sec (92-181) 192 sec (92-181) Sodium Level 137 mmol/L (136-145) Potassium Level 4.1 mmol/L (3.5-5.1) Chloride Level 103 mmol/L (98-107) Carbon Dioxide Level 27 mmol/L (21-32) Anion Gap 7 (6-14) Blood Urea Nitrogen 23 mg/dL (8-26) Creatinine 1.3 mg/dL (0.7-1.3) Estimated GFR (Cockcroft-Gault) 54.6 Glucose Level 134 mg/dL (70-99) Calcium Level 8.7 mg/dL (8.5-10.1) Assessment and Plan Assessmemt and Plan Problems Medical Problems: (1) Shortness of breath at rest Status: Acute Comment Review of Relevant I have reviewed the following items thu (where applicable) has been applied. Labs Laboratory Tests Test 09/12/19 10:25 09/12/19 15:10 09/13/19 04:28 09/13/19 13:06 Sodium Level 140 mmol/L (136-145) 138 mmol/L (136-145) Potassium Level 4.3 mmol/L (3.5-5.1) 4.4 mmol/L (3.5-5.1) Chloride Level 101 mmol/L (98-107) 103 mmol/L (98-107) Carbon Dioxide Level 30 mmol/L (21-32) 25 mmol/L (21-32) Anion Gap 9 (6-14) 10 (6-14) Blood Urea Nitrogen 32 mg/dL (8-26) 28 mg/dL (8-26) Creatinine 1.4 mg/dL (0.7-1.3) 1.4 mg/dL (0.7-1.3) Estimated GFR (Cockcroft-Gault) 50.1 50.1 BUN/Creatinine Ratio 23 (6-20) Glucose Level 137 mg/dL (70-99) 117 mg/dL (70-99) Calcium Level 9.1 mg/dL (8.5-10.1) 9.0 mg/dL (8.5-10.1) Total Bilirubin 0.2 mg/dL (0.2-1.0) Aspartate Amino Transf (AST/SGOT) 29 U/L (15-37) Alanine Aminotransferase (ALT/SGPT) 73 U/L (16-63) Alkaline Phosphatase 89 U/L (46-116) Total Protein 6.7 g/dL (6.4-8.2) Albumin 3.3 g/dL (3.4-5.0) 3.1 g/dL (3.4-5.0) Albumin/Globulin Ratio 1.0 (1.0-1.7) Urine Collection Type Unknown Urine Color Yellow Urine Clarity Clear Urine pH 6.0 (<5.0-8.0) Urine Specific [place] 1.020 (1.000-1.030) Urine Protein Negative mg/dL (NEG-TRACE) Urine Glucose (UA) Negative mg/dL (NEG) Urine Ketones (Stick) Negative mg/dL (NEG) Urine Blood Negative (NEG) Urine Nitrite Negative (NEG) Urine Bilirubin Negative (NEG) Urine Urobilinogen Dipstick 0.2 mg/dL (0.2 mg/dL) Urine Leukocyte Esterase Negative (NEG) Urine RBC 1-2 /HPF (0-2) Urine WBC 1-4 /HPF (0-4) Urine Squamous Epithelial Cells Few /LPF Urine Bacteria Few /HPF (0-FEW) Urine Mucus Slight /LPF Phosphorus Level 3.9 mg/dL (2.6-4.7) Activated Clotting Time 188 sec (92-181) Test 09/13/19 13:51 09/13/19 14:37 09/14/19 04:00 Activated Clotting Time 221 sec (92-181) 192 sec (92-181) Sodium Level 137 mmol/L (136-145) Potassium Level 4.1 mmol/L (3.5-5.1) Chloride Level 103 mmol/L (98-107) Carbon Dioxide Level 27 mmol/L (21-32) Anion Gap 7 (6-14) Blood Urea Nitrogen 23 mg/dL (8-26) Creatinine 1.3 mg/dL (0.7-1.3) Estimated GFR (Cockcroft-Gault) 54.6 Glucose Level 134 mg/dL (70-99) Calcium Level 8.7 mg/dL (8.5-10.1) Laboratory Tests Test 09/13/19 13:06 09/13/19 13:51 09/13/19 14:37 09/14/19 04:00 Activated Clotting Time 188 sec (92-181) 221 sec (92-181) 192 sec (92-181) Sodium Level 137 mmol/L (136-145) Potassium Level 4.1 mmol/L (3.5-5.1) Chloride Level 103 mmol/L (98-107) Carbon Dioxide Level 27 mmol/L (21-32) Anion Gap 7 (6-14) Blood Urea Nitrogen 23 mg/dL (8-26) Creatinine 1.3 mg/dL (0.7-1.3) Estimated GFR (Cockcroft-Gault) 54.6 Glucose Level 134 mg/dL (70-99) Calcium Level 8.7 mg/dL (8.5-10.1) Medications Current Medications Allopurinol (Zyloprim) 300 mg QEVNG PO Last administered on 09/13/19at 19:23; Start 09/09/19 at 18:00 Amlodipine Besylate (Norvasc) 10 mg DAILY PO Last administered on 09/14/19at 08:32; Start 09/10/19 at 09:00 Aspirin (Ecotrin) 81 mg DAILYWBKFT PO Last administered on 09/14/19at 08:29; Start 09/10/19 at 08:00 Clopidogrel Bisulfate (Plavix) 75 mg DAILYWBKFT PO Last administered on 09/14/19 08:30; Start 09/10/19 at 08:00 Hydralazine HCl (Apresoline) 50 mg BID PO Last administered on 09/14/19at 08:31; Start 09/09/19 at 21:00 Hydrochlorothiazide (Hydrodiuril) 25 mg DAILY PO Last administered on 09/10/19at 08:11; Start 09/10/19 at 09:00; Stop 09/10/19 at 14:09; Status DC Carvedilol (Coreg) 25 mg BIDWMEALS PO Last administered on 09/14/19at 08:30; Start 09/09/19 at 17:00 Isosorbide Mononitrate (Imdur) 60 mg DAILY PO Last administered on 09/14/19at 08:29; Start 09/10/19 at 09:00 Atorvastatin Calcium (Lipitor) 10 mg QHS PO Last administered on 09/13/19at 20:42; Start 09/09/19 at 21:00 Enoxaparin Sodium (Lovenox Per Pharmacy Prophylaxis Dosing) 1 each PRN DAILY PRN MC SEE COMMENTS; Start 09/09/19 at 18:45; Stop 09/13/19 at 17:58; Status DC Enoxaparin Sodium (Lovenox 40mg Syringe) 40 mg Q24H SQ Last administered on 09/12/19at 21:05; Start 09/09/19 at 21:00; Stop 09/13/19 at 17:57; Status DC Zolpidem Tartrate (Ambien) 5 mg PRN QHS PRN PO INSOMNIA Last administered on 09/13/19at 19:23; Start 09/09/19 at 18:45 Lorazepam (Ativan Inj) 1 mg 1X ONCE IVP ; Start 09/11/19 at 11:00; Stop 09/11/19 at 11:11; Status DC Sumatriptan Succinate (Imitrex) 50 mg 1X ONCE PO ; Start 09/11/19 at 11:00; Stop 09/11/19 at 11:11; Status DC Acetaminophen/ Butalbital/ Caffeine (Fioricet) 1 tab PRN Q6HRS PRN PO MIGRAINE HEADACHE; Start 09/11/19 at 11:00 Sodium Chloride 1,000 ml @ 75 mls/hr [id number] IV Last administered on 09/13/19at 07:05; Start 09/12/19 at 20:00; Stop 09/14/19 at 01:12; Status DC Iodixanol (Visipaque 320) 100 ml STK-MED ONCE .ROUTE ; Start 09/13/19 at 09:14; Stop 09/13/19 at 09:14; Status DC Lidocaine HCl (Lidocaine 1% 20ml Vial) 20 ml STK-MED ONCE .ROUTE ; Start 09/13/19 at 09:14; Stop 09/13/19 at 09:14; Status DC Heparin Sodium/ Sodium Chloride 1,000 ml @ As Directed STK-MED ONCE .ROUTE ; Start 09/13/19 at 09:14; Stop 09/13/19 at 09:14; Status DC Iodixanol (Visipaque 320) 100 ml STK-MED ONCE .ROUTE ; Start 09/13/19 at 11:55; Stop 09/13/19 at 11:55; Status DC Fentanyl Citrate (Fentanyl 2ml Vial) 100 mcg STK-MED ONCE .ROUTE ; Start 09/13/19 at 12:18; Stop 09/13/19 at 12:18; Status DC Midazolam HCl (Versed) 2 mg STK-MED ONCE .ROUTE ; Start 09/13/19 at 12:18; Stop 09/13/19 at 12:18; Status DC Heparin Sodium (Porcine) (Heparin Sodium) 10,000 unit STK-MED ONCE .ROUTE ; Start 09/13/19 at 12:18; Stop 09/13/19 at 12:19; Status DC Fentanyl Citrate (Fentanyl 2ml Vial) 100 mcg STK-MED ONCE .ROUTE ; Start 09/13/19 at 12:51; Stop 09/13/19 at 12:51; Status DC Midazolam HCl (Versed) 2 mg STK-MED ONCE .ROUTE ; Start 09/13/19 at 12:51; Stop 09/13/19 at 12:51; Status DC Heparin Sodium/ Sodium Chloride 500 ml @ As Directed STK-MED ONCE .ROUTE ; Start 09/13/19 at 13:09; Stop 09/13/19 at 13:09; Status DC Heparin Sodium/ Sodium Chloride (HEPARIN for ARTERIAL LINE FLUSH) 1,000 unit 1X ONCE IART Last administered on 09/13/19at 15:09; Start 09/13/19 at 13:45; Stop 09/13/19 at 13:52; Status DC Heparin Sodium/ Sodium Chloride (HEPARIN for ARTERIAL LINE FLUSH) 1,000 unit 1X ONCE IART Last administered on 09/13/19at 15:09; Start 09/13/19 at 13:45; Stop 09/13/19 at 13:52; Status DC Midazolam HCl (Versed) 2 mg 1X ONCE IV Last administered on 09/13/19at 15:11; Start 09/13/19 at 13:45; Stop 09/13/19 at 13:52; Status DC Fentanyl Citrate (Fentanyl 2ml Vial) 100 mcg 1X ONCE IV Last administered on 09/13/19at 15:11; Start 09/13/19 at 13:45; Stop 09/13/19 at 13:52; Status DC Iodixanol (Visipaque 320) 100 ml 1X ONCE IART Last administered on 09/13/19at 15:09; Start 09/13/19 at 13:45; Stop 09/13/19 at 13:52; Status DC Heparin Sodium (Porcine) (Heparin Sodium) 6,500 unit 1X ONCE IV Last administered on 09/13/19at 15:12; Start 09/13/19 at 13:45; Stop 09/13/19 at 13:52; Status DC Lidocaine HCl (Lidocaine 1% 20ml Vial) 18 ml 1X ONCE INJ Last administered on 09/13/19at 15:10; Start 09/13/19 at 13:45; Stop 09/13/19 at 13:52; Status DC Dextrose 500 ml @ 0 mls/hr 1X IV ; Start 09/13/19 at 13:45 Info (CONTRAST GIVEN -- Rx MONITORING) 1 each PRN DAILY PRN MC SEE COMMENTS; Start 09/13/19 at 14:00; Stop 09/15/19 at 13:59 Iodixanol (Visipaque 320) 100 ml STK-MED ONCE .ROUTE ; Start 09/13/19 at 13:57; Stop 09/13/19 at 13:58; Status DC Midazolam HCl (Versed) 2 mg STK-MED ONCE .ROUTE ; Start 09/13/19 at 14:16; Stop 09/13/19 at 14:16; Status DC Nitroglycerin (Nitroglycerin) 200 mcg STK-MED ONCE .ROUTE ; Start 09/13/19 at 14:16; Stop 09/13/19 at 14:16; Status DC Nitroglycerin (Nitroglycerin) 100 mcg 1X ONCE IART Last administered on 09/13/19at 13:49; Start 09/13/19 at 15:15; Stop 09/13/19 at 15:16; Status DC Sodium Chloride 1,000 ml @ 75 mls/hr 1X ONCE IV Last administered on 09/13/19at 14:45; Start 09/13/19 at 15:15; Stop 09/14/19 at 04:35; Status DC Clopidogrel Bisulfate (Plavix) 300 mg 1X ONCE PO Last administered on 09/13/19at 15:30; Start 09/13/19 at 15:30; Stop 09/13/19 at 15:31; Status DC Clopidogrel Bisulfate (Plavix) 75 mg STK-MED ONCE .ROUTE ; Start 09/13/19 at 15:25; Stop 09/13/19 at 15:26; Status DC Rivaroxaban (Xarelto) 2.5 mg BID PO Last administered on 09/14/19at 08:33; Start 09/13/19 at 21:00 Active Scripts Active Clopidogrel (Clopidogrel Bisulfate) 75 Mg Tablet 75 Mg PO DAILYWBKFT Aspirin Ec (Aspirin) 81 Mg Tablet. 81 Mg PO DAILYWBKFT Reported Hydralazine Hcl 50 Mg Tablet 1 Tab PO BID Carvedilol 25 Mg Tablet 25 Mg PO BIDWMEALS Allopurinol 300 Mg Tablet 1 Tab PO QEVNG Pravastatin Sodium 40 Mg Tablet 1 Tab PO QHS Hydrochlorothiazide Tablet (Hydrochlorothiazide) 25 Mg Tablet 1 Tab PO DAILY Isosorbide Mononitrate Er (Isosorbide Mononitrate) 60 Mg Tab.er.24h 1 Tab PO DAILY Amlodipine Besylate 10 Mg Tablet 10 Mg PO DAILY Vitals/I & O Vital Sign - Last 24 Hours 09/13/19 09/13/19 09/13/19 09/13/19 11:00 15:00 15:11 15:31 Temp 98.1 98.1 Pulse 59 71 Resp 18 32 28 B/P (MAP) 108/60 (76) Pulse Ox 94 98 98 O2 Delivery Room Air Nasal Cannula Nasal Cannula O2 Flow Rate 2.0 2.0 09/13/19 09/13/19 09/13/19 09/13/19 15:40 15:45 16:00 16:15 Temp 97.6 97.6 Pulse 70 65 68 70 Resp 18 B/P (MAP) 141/84 (103) 141/84 (103) 140/83 (102) 146/91 (109) Pulse Ox 94 91 92 94 O2 Delivery Room Air 09/13/19 09/13/19 09/13/19 09/13/19 16:30 17:00 18:02 19:00 Pulse 70 71 71 72 B/P (MAP) 148/79 (102) 150/74 (99) 133/85 (101) 110/74 (86) Pulse Ox 94 94 95 93 09/13/19 09/13/19 09/13/19 09/13/19 19:23 19:50 20:00 20:42 Temp 98.2 98.2 Pulse 72 68 69 Resp 22 B/P (MAP) 137/78 144/76 (98) 144/76 Pulse Ox 94 O2 Delivery Room Air Room Air 09/13/19 09/13/19 09/13/19 09/13/19 21:00 22:00 22:43 23:15 Temp 98.3 98.0 98.3 98.0 Pulse 66 72 71 76 Resp 20 22 B/P (MAP) 137/76 (96) 124/72 (89) 121/68 (85) 136/79 (98) Pulse Ox 93 93 93 94 O2 Delivery Room Air Room Air 09/14/19 09/14/19 09/14/19 09/14/19 03:00 07:00 08:29 08:30 Temp 98.3 98.2 98.3 98.2 Pulse 78 71 71 71 Resp 22 18 B/P (MAP) 136/82 (100) 137/90 (106) 137/90 137/90 Pulse Ox 92 95 O2 Delivery Room Air Room Air 09/14/19 09/14/19 08:31 08:32 Pulse 71 71 B/P (MAP) 137/90 137/90 l Intake and Output 09/13/19 09/13/19 09/14/19 15:00 23:00 07:00 Intake Total 0 ml 1300 ml Output Total 750 ml Balance 0 ml 1300 ml -750 ml ALYSSA SOLANO MD Sep 14, 2019 09:24
--- NOTE | 2019-09-14 09:40 | PDOC ---
SUBJECTIVE ROS No complaints this am , s/p PCI 09/12 OBJECTIVE Vital Signs Vital Signs Date Time Temp Pulse Resp B/P (MAP) Pulse Ox O2 Delivery O2 Flow Rate FiO2 09/14/19 08:32 71 137/90 09/14/19 07:00 98.2 18 95 Room Air 98.2 09/13/19 15:31 2.0 I & 0 Intake and Output 09/14/19 07:00 Intake Total 1300 ml Output Total 750 ml Balance 550 ml Intake Oral 300 ml IV Total 1000 ml Output Urine Total 750 ml # Voids 1 PHYSICAL EXAM Physical Exam GEN.: No apparent distress. Alert and oriented. HEENT: Head is normocephalic, atraumatic NECK: Supple. LUNGS: Clear to auscultation. HEART: RRR, S1, S2 present. Peripheral pulses intact ABDOMEN: Soft, nontender. Positive bowel sounds. EXTREMITIES: Without any cyanosis or edema NEUROLOGIC: Normal speech, normal tone PSYCHIATRIC: Normal affect, normal mood. 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 HTN- cardiology managing Severe 3V CAD with heavy calcification and LM involvement- S/P PCI on 09/12- Atherectomy and left main and LAD drug-eluting stent Acute on chronic diastolic heart failure, class III, LVEDP 18 mmHg COMMENT/RELEVANT DATA Meds Current Medications Medications (Trade) Dose Ordered Sig/Sandee Start Time Stop Time Status Last Admin Dose Admin Acetaminophen/ Butalbital/ Caffeine (Fioricet) 1 tab PRN Q6HRS PRN 09/11/19 11:00 Allopurinol (Zyloprim) 300 mg QEVNG 09/09/19 18:00 09/13/19 19:23 300 MG Amlodipine Besylate (Norvasc) 10 mg DAILY 09/10/19 09:00 09/14/19 08:32 10 MG Aspirin (Ecotrin) 81 mg DAILYWBKFT 09/10/19 08:00 09/14/19 08:29 81 MG Atorvastatin Calcium (Lipitor) 10 mg QHS 09/09/19 21:00 09/13/19 20:42 10 MG Carvedilol (Coreg) 25 mg BIDWMEALS 09/09/19 17:00 09/14/19 08:30 25 MG Clopidogrel Bisulfate (Plavix) 75 mg STK-MED ONCE 09/13/19 15:25 09/13/19 15:26 DC Dextrose 500 ml @ 0 mls/hr 1X 09/13/19 13:45 Enoxaparin Sodium (Lovenox 40mg Syringe) 40 mg Q24H 09/09/19 21:00 09/13/19 17:57 DC 09/12/19 21:05 40 MG Enoxaparin Sodium (Lovenox Per Pharmacy Prophylaxis Dosing) 1 each PRN DAILY PRN 09/09/19 18:45 09/13/19 17:58 DC Fentanyl Citrate (Fentanyl 2ml Vial) 100 mcg 1X ONCE 09/13/19 13:45 09/13/19 13:52 DC 09/13/19 15:11 200 MCG Heparin Sodium (Porcine) (Heparin Sodium) 6,500 unit 1X ONCE 09/13/19 13:45 09/13/19 13:52 DC 09/13/19 15:12 6,500 UNIT Heparin Sodium/ Sodium Chloride (HEPARIN for ARTERIAL LINE FLUSH) 1,000 unit 1X ONCE 09/13/19 13:45 09/13/19 13:52 DC 09/13/19 15:09 1,000 UNIT Hydralazine HCl (Apresoline) 50 mg BID 09/09/19 21:00 09/14/19 08:31 50 MG Hydrochlorothiazide (Hydrodiuril) 25 mg DAILY 09/10/19 09:00 09/10/19 14:09 DC 09/10/19 08:11 25 MG Info (CONTRAST GIVEN -- Rx MONITORING) 1 each PRN DAILY PRN 09/13/19 14:00 09/15/19 13:59 Iodixanol (Visipaque 320) 100 ml STK-MED ONCE 09/13/19 13:57 09/13/19 13:58 DC Isosorbide Mononitrate (Imdur) 60 mg DAILY 09/10/19 09:00 09/14/19 08:29 60 MG Lidocaine HCl (Lidocaine 1% 20ml Vial) 18 ml 1X ONCE 09/13/19 13:45 09/13/19 13:52 DC 09/13/19 15:10 18 ML Lorazepam (Ativan Inj) 1 mg 1X ONCE 09/11/19 11:00 09/11/19 11:11 DC Midazolam HCl (Versed) 2 mg STK-MED ONCE 09/13/19 14:16 09/13/19 14:16 DC Nitroglycerin (Nitroglycerin) 100 mcg 1X ONCE 09/13/19 15:15 09/13/19 15:16 DC 09/13/19 13:49 100 MCG Rivaroxaban (Xarelto) 2.5 mg BID 09/13/19 21:00 09/14/19 08:33 2.5 MG Sodium Chloride 1,000 ml @ 75 mls/hr 1X ONCE 09/13/19 15:15 09/14/19 04:35 DC 09/13/19 14:45 75 MLS/HR Sumatriptan Succinate (Imitrex) 50 mg 1X ONCE 09/11/19 11:00 09/11/19 11:11 DC Zolpidem Tartrate (Ambien) 5 mg PRN QHS PRN 09/09/19 18:45 09/13/19 19:23 5 MG Lab Laboratory Tests Test 09/13/19 13:06 09/13/19 13:51 09/13/19 14:37 09/14/19 04:00 Activated Clotting Time 188 sec (92-181) 221 sec (92-181) 192 sec (92-181) Sodium Level 137 mmol/L (136-145) Potassium Level 4.1 mmol/L (3.5-5.1) Chloride Level 103 mmol/L (98-107) Carbon Dioxide Level 27 mmol/L (21-32) Anion Gap 7 (6-14) Blood Urea Nitrogen 23 mg/dL (8-26) Creatinine 1.3 mg/dL (0.7-1.3) Estimated GFR (Cockcroft-Gault) 54.6 Glucose Level 134 mg/dL (70-99) Calcium Level 8.7 mg/dL (8.5-10.1) Results All relevant outside records, renal labs, imaging studies, telemetry/EKG's were reviewed. Justicifation of Admission Dx: Justifications for Admission: Justification of Admission Dx: Yes CHF: Hemodynamic Instability LUIS MARTEL MD Sep 14, 2019 09:40
[2019-09-14 10:36] VITALS: BP 107/72
[2019-09-14] MEDS ORDERED: RIVA10TA PO (10:38)
[2019-09-14] MEDS ORDERED: CARV12.511 PO (10:38)
[2019-09-14] MEDS ORDERED: CRESTOR40 MG PO (10:41)
[2019-09-14] MEDS ORDERED: ASPI-612 PO (10:43)
--- NOTE | 2019-09-14 10:53 | NUR ---
SS following up with discharge planning. SS reviewed pt chart and discussed with pt RN. Pt is from home with spouse and is currently on room air. Per RN, pt will discharge to home today. SS will continue to follow for discharge planning.
--- NOTE | 2019-09-14 12:37 | PDOC ---
EMEKA CUENCA LOCK FITTER 09/14/19 1236: CARDIO Progress Notes Date and Time Date of Service 09/14/2019 Time of Evaluation 1040 Subjective Subjective: No Chest Pain, No shortness of breath, No Palpitations Vitals Vitals Vital Signs Date Time Temp Pulse Resp B/P (MAP) Pulse Ox O2 Delivery O2 Flow Rate FiO2 09/14/19 10:36 97.6 68 18 107/72 (84) 92 Room Air 97.6 09/13/19 15:31 2.0 Weight Weight [ ] Input and Output Intake and Output Intake and Output 09/14/19 07:00 Intake Total 1300 ml Output Total 750 ml Balance 550 ml Intake Oral 300 ml IV Total 1000 ml Output Urine Total 750 ml # Voids 1 Laboratory Labs Laboratory Tests Test 09/13/19 13:06 09/13/19 13:51 09/13/19 14:37 09/14/19 04:00 Activated Clotting Time 188 sec (92-181) 221 sec (92-181) 192 sec (92-181) Sodium Level 137 mmol/L (136-145) Potassium Level 4.1 mmol/L (3.5-5.1) Chloride Level 103 mmol/L (98-107) Carbon Dioxide Level 27 mmol/L (21-32) Anion Gap 7 (6-14) Blood Urea Nitrogen 23 mg/dL (8-26) Creatinine 1.3 mg/dL (0.7-1.3) Estimated GFR (Cockcroft-Gault) 54.6 Glucose Level 134 mg/dL (70-99) Calcium Level 8.7 mg/dL (8.5-10.1) Physical Exam HEENT: Neck Supple W Full Motion Chest: Symmetric LUNGS: Clear to Auscultation Heart: S1S2, RRR (SR) Abdomen: Soft N/T Extremities: No Edema, No Calf Tenderness Neurology: alert, oriented, follow commands Other Exams bilateral groin arteriotomy sites intact with some bruising and no significant hematoma. Neurovascular status to bilateral LE intact and ambulatory without difficulty. Assessment Assessment 1. Acute on chronic diastolic CHF: appears compensated, no overt symptoms 2. HTN: controlled 3. Severe 3V CAD with LM involvement: S/P PCI/atherectomy/MIRIAN with IVUS to LM/LAD. Well tolerated 4. HLP 5. History of a CVA with hx of right ICA stenosis with CEA 6. CKD3 7. Bradyarrhythmia: brief episodes of sinus bradycardia with long first degree AV block and brief type 2 mobitz x1 prior to PCI otherwise SR. Recommendations 1. Continue home BP regimen. BP is well controlled and will decrease coreg d osing. Will consider for MCOT, will discuss with primary spinner tender 2. 81 mg ASA daily for 1 month only. Plavix to continue and add xarelto 2.5 mg bid retirement 3. Crestor 20 mg po qhs. Rx transmitted for xarelto and crestor and 90 day mail in written Rx given. BMP next week 4. We will consider staged PCI of the RCA if needed depending on symptom resolution. 5. Follow up as scheduled Justicifation of Admission Dx: Justifications for Admission: Justification of Admission Dx: Yes CHF: Hemodynamic Instability MASNI HART MD 09/14/19 1450: CARDIO Progress Notes Plan Plan Pt. seen and examined. 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 Patient has had remarkable improvement in his dyspnea today after LM and LAD PCI, consistent overall with the fact that his presentation was most likely unstable angina. Plan as above. Thanks EMEKA CUENCA APRN Sep 14, 2019 12:36 MANSI HART MD Sep 14, 2019 14:50
--- NOTE | 2019-09-14 14:22 | PDOC3 ---
Discharge Summary Date of Admission: Sep 09, 2019 Date of Discharge: Sep 14, 2019 Follow-Up: 3-5 days Admitting Diagnosis comment: DISCHARGE DX CAD, left main disease, needs intervention RCA is a large caliber vessel with a proximal 70% stenosis, followed by a patent stent, a distal 70% stenosis. LM is a large caliber vessel with an eccentric distal 70% stenosis. . acute systolic CHF obese DM2 CKD STAGE 3-4 htn hyper lipids headache, migrane, PLAN NEPHROLOGY CONSULT Severe 3V CAD with LM involvement- Scheduled for PCI with Impella support and orbital atherectomy of the left main and RCA Severe 3V CAD with LM involvement: S/P PCI/atherectomy/MIRIAN with IVUS to LM/LAD. Well tolerated 09/12 Supportive care, avoid nephrotoxins FU Renal function post dc , Luis RN 34 min pt exam, chart review D/C PLANNING , > 50% of time spent with exam, chart review, pt care coordination History of Present Illness History of Present Illness plan cardiac cath and stents 09/12 , he declined having CABG Vitals Vitals Vital Signs Date Time Temp Pulse Resp B/P (MAP) Pulse Ox O2 Delivery O2 Flow Rate FiO2 09/14/19 08:32 71 137/90 09/14/19 07:00 98.2 18 95 Room Air 98.2 09/13/19 15:31 2.0 Physical Exam General: Alert, Oriented X3, Cooperative, No acute distress Heart: Regular rate, Normal S2 Lungs: Clear, Other Abdomen: Normal bowel sounds, Soft Extremities: No clubbing, No cyanosis, Normal pulses, Other (tr edema) Skin: No rashes, No significant lesion Labs LABS Laboratory Tests Test 09/13/19 13:06 09/13/19 13:51 09/13/19 14:37 09/14/19 04:00 Activated Clotting Time 188 sec (92-181) 221 sec (92-181) 192 sec (92-181) Sodium Level 137 mmol/L (136-145) Potassium Level 4.1 mmol/L (3.5-5.1) Chloride Level 103 mmol/L (98-107) Carbon Dioxide Level 27 mmol/L (21-32) Anion Gap 7 (6-14) Blood Urea Nitrogen 23 mg/dL (8-26) Creatinine 1.3 mg/dL (0.7-1.3) Estimated GFR (Cockcroft-Gault) 54.6 Glucose Level 134 mg/dL (70-99) Calcium Level 8.7 mg/dL (8.5-10.1) FINAL DIAGNOSIS Problems Medical Problems: (1) Shortness of breath at rest Status: Acute Brief Hospital Course Mr. Weinstein is a 69 old [sex] who presented with [ UNSTABLE ANGINA ] CONDITION AT DISCHARGE: Improved Discharge Medications Current Medications Allopurinol (Zyloprim) 300 mg QEVNG PO Last administered on 09/13/19 19:23; Start 09/09/19 at 18:00 Amlodipine Besylate (Norvasc) 10 mg DAILY PO Last administered on 09/14/19 08:32; Start 09/10/19 at 09:00 Aspirin (Ecotrin) 81 mg DAILYWBKFT PO Last administered on 09/14/19 08:29; Start 09/10/19 at 08:00 Clopidogrel Bisulfate (Plavix) 75 mg DAILYWBKFT PO Last administered on at 08:30; Start 09/10/19 at 08:00 Hydralazine HCl (Apresoline) 50 mg BID PO Last administered on 09/14/19 08:31; Start 09/09/19 at 21:00 Hydrochlorothiazide (Hydrodiuril) 25 mg DAILY PO Last administered on 09/10/19at 08:11; Start 09/10/19 at 09:00; Stop 09/10/19 at 14:09; Status DC Carvedilol (Coreg) 25 mg BIDWMEALS PO Last administered on 09/14/19 08:30; Start 09/09/19 at 17:00 Isosorbide Mononitrate (Imdur) 60 mg DAILY PO Last administered on 09/14/19 08:29; Start 09/10/19 at 09:00 Atorvastatin Calcium (Lipitor) 10 mg QHS PO Last administered on 09/13/19at 20:42; Start 09/09/19 at 21:00 Enoxaparin Sodium (Lovenox Per Pharmacy Prophylaxis Dosing) 1 each PRN DAILY PRN MC SEE COMMENTS; Start 09/09/19 at 18:45; Stop 09/13/19 at 17:58; Status DC Enoxaparin Sodium (Lovenox 40mg Syringe) 40 mg Q24H SQ Last administered on 09/12/19at 21:05; Start 09/09/19 at 21:00; Stop 09/13/19 at 17:57; Status DC Zolpidem Tartrate (Ambien) 5 mg PRN QHS PRN PO INSOMNIA Last administered on 09/13/19at 19:23; Start 09/09/19 at 18:45 Lorazepam (Ativan Inj) 1 mg 1X ONCE IVP ; Start 09/11/19 at 11:00; Stop 09/11/19 at 11:11; Status DC Sumatriptan Succinate (Imitrex) 50 mg 1X ONCE PO ; Start 09/11/19 at 11:00; Stop 09/11/19 at 11:11; Status DC Acetaminophen/ Butalbital/ Caffeine (Fioricet) 1 tab PRN Q6HRS PRN PO MIGRAINE HEADACHE; Start 09/11/19 at 11:00 Sodium Chloride 1,000 ml @ 75 mls/hr [id number] IV Last administered on 09/13/19at 07:05; Start 09/12/19 at 20:00; Stop 09/14/19 at 01:12; Status DC Iodixanol (Visipaque 320) 100 ml STK-MED ONCE .ROUTE ; Start 09/13/19 at 09:14; Stop 09/13/19 at 09:14; Status DC Lidocaine HCl (Lidocaine 1% 20ml Vial) 20 ml STK-MED ONCE .ROUTE ; Start 09/13/19 at 09:14; Stop 09/13/19 at 09:14; Status DC Heparin Sodium/ Sodium Chloride 1,000 ml @ As Directed STK-MED ONCE .ROUTE ; Start 09/13/19 at 09:14; Stop 09/13/19 at 09:14; Status DC Iodixanol (Visipaque 320) 100 ml STK-MED ONCE .ROUTE ; Start 09/13/19 at 11:55; Stop 09/13/19 at 11:55; Status DC Fentanyl Citrate (Fentanyl 2ml Vial) 100 mcg STK-MED ONCE .ROUTE ; Start 09/13/19 at 12:18; Stop 09/13/19 at 12:18; Status DC Midazolam HCl (Versed) 2 mg STK-MED ONCE .ROUTE ; Start 09/13/19 at 12:18; Stop 09/13/19 at 12:18; Status DC Heparin Sodium (Porcine) (Heparin Sodium) 10,000 unit STK-MED ONCE .ROUTE ; Start 09/13/19 at 12:18; Stop 09/13/19 at 12:19; Status DC Fentanyl Citrate (Fentanyl 2ml Vial) 100 mcg STK-MED ONCE .ROUTE ; Start 09/13/19 at 12:51; Stop 09/13/19 at 12:51; Status DC Midazolam HCl (Versed) 2 mg STK-MED ONCE .ROUTE ; Start 09/13/19 at 12:51; Stop 09/13/19 at 12:51; Status DC Heparin Sodium/ Sodium Chloride 500 ml @ As Directed STK-MED ONCE .ROUTE ; Start 09/13/19 at 13:09; Stop 09/13/19 at 13:09; Status DC Heparin Sodium/ Sodium Chloride (HEPARIN for ARTERIAL LINE FLUSH) 1,000 unit 1X ONCE IART Last administered on 09/13/19at 15:09; Start 09/13/19 at 13:45; Stop 09/13/19 at 13:52; Status DC Heparin Sodium/ Sodium Chloride (HEPARIN for ARTERIAL LINE FLUSH) 1,000 unit 1X ONCE IART Last administered on 09/13/19at 15:09; Start 09/13/19 at 13:45; Stop 09/13/19 at 13:52; Status DC Midazolam HCl (Versed) 2 mg 1X ONCE IV Last administered on 09/13/19at 15:11; Start 09/13/19 at 13:45; Stop 09/13/19 at 13:52; Status DC Fentanyl Citrate (Fentanyl 2ml Vial) 100 mcg 1X ONCE IV Last administered on 09/13/19at 15:11; Start 09/13/19 at 13:45; Stop 09/13/19 at 13:52; Status DC Iodixanol (Visipaque 320) 100 ml 1X ONCE IART Last administered on 09/13/19at 15:09; Start 09/13/19 at 13:45; Stop 09/13/19 at 13:52; Status DC Heparin Sodium (Porcine) (Heparin Sodium) 6,500 unit 1X ONCE IV Last administered on 09/13/19at 15:12; Start 09/13/19 at 13:45; Stop 09/13/19 at 13:52; Status DC Lidocaine HCl (Lidocaine 1% 20ml Vial) 18 ml 1X ONCE INJ Last administered on 09/13/19at 15:10; Start 09/13/19 at 13:45; Stop 09/13/19 at 13:52; Status DC Dextrose 500 ml @ 0 mls/hr 1X IV ; Start 09/13/19 at 13:45 Info (CONTRAST GIVEN -- Rx MONITORING) 1 each PRN DAILY PRN MC SEE COMMENTS; Start 09/13/19 at 14:00; Stop 09/15/19 at 13:59 Iodixanol (Visipaque 320) 100 ml STK-MED ONCE .ROUTE ; Start 09/13/19 at 13:57; Stop 09/13/19 at 13:58; Status DC Midazolam HCl (Versed) 2 mg STK-MED ONCE .ROUTE ; Start 09/13/19 at 14:16; Stop 09/13/19 at 14:16; Status DC Nitroglycerin (Nitroglycerin) 200 mcg STK-MED ONCE .ROUTE ; Start 09/13/19 at 14:16; Stop 09/13/19 at 14:16; Status DC Nitroglycerin (Nitroglycerin) 100 mcg 1X ONCE IART Last administered on 09/13/19at 13:49; Start 09/13/19 at 15:15; Stop 09/13/19 at 15:16; Status DC Sodium Chloride 1,000 ml @ 75 mls/hr 1X ONCE IV Last administered on 09/13/19at 14:45; Start 09/13/19 at 15:15; Stop 09/14/19 at 04:35; Status DC Clopidogrel Bisulfate (Plavix) 300 mg 1X ONCE PO Last administered on 09/13/19at 15:30; Start 09/13/19 at 15:30; Stop 09/13/19 at 15:31; Status DC Clopidogrel Bisulfate (Plavix) 75 mg STK-MED ONCE .ROUTE ; Start 09/13/19 at 15:25; Stop 09/13/19 at 15:26; Status DC Rivaroxaban (Xarelto) 2.5 mg BID PO Last administered on 09/14/19at 08:33; Start 09/13/19 at 21:00 Active Scripts Active Clopidogrel (Clopidogrel Bisulfate) 75 Mg Tablet 75 Mg PO DAILYWBKFT Aspirin Ec (Aspirin) 81 Mg Tablet. 81 Mg PO DAILYWBKFT Reported Hydralazine Hcl 50 Mg Tablet 1 Tab PO BID Carvedilol 25 Mg Tablet 25 Mg PO BIDWMEALS Allopurinol 300 Mg Tablet 1 Tab PO QEVNG Pravastatin Sodium 40 Mg Tablet 1 Tab PO QHS Hydrochlorothiazide Tablet (Hydrochlorothiazide) 25 Mg Tablet 1 Tab PO DAILY Isosorbide Mononitrate Er (Isosorbide Mononitrate) 60 Mg Tab.er.24h 1 Tab PO DAILY Amlodipine Besylate 10 Mg Tablet 10 Mg PO DAILY Vital Signs Vital Signs Date Time Temp Pulse Resp B/P (MAP) Pulse Ox O2 Delivery O2 Flow Rate FiO2 09/14/19 10:36 97.6 68 18 107/72 (84) 92 Room Air 97.6 09/13/19 15:31 2.0 Labs Laboratory Tests Test 09/12/19 15:10 09/13/19 04:28 09/13/19 13:06 09/13/19 13:51 Urine Collection Type Unknown Urine Color Yellow Urine Clarity Clear Urine pH 6.0 (<5.0-8.0) Urine Specific [place] 1.020 (1.000-1.030) Urine Protein Negative mg/dL (NEG-TRACE) Urine Glucose (UA) Negative mg/dL (NEG) Urine Ketones (Stick) Negative mg/dL (NEG) Urine Blood Negative (NEG) Urine Nitrite Negative (NEG) Urine Bilirubin Negative (NEG) Urine Urobilinogen Dipstick 0.2 mg/dL (0.2 mg/dL) Urine Leukocyte Esterase Negative (NEG) Urine RBC 1-2 /HPF (0-2) Urine WBC 1-4 /HPF (0-4) Urine Squamous Epithelial Cells Few /LPF Urine Bacteria Few /HPF (0-FEW) Urine Mucus Slight /LPF Sodium Level 138 mmol/L (136-145) Potassium Level 4.4 mmol/L (3.5-5.1) Chloride Level 103 mmol/L (98-107) Carbon Dioxide Level 25 mmol/L (21-32) Anion Gap 10 (6-14) Blood Urea Nitrogen 28 mg/dL (8-26) Creatinine 1.4 mg/dL (0.7-1.3) Estimated GFR (Cockcroft-Gault) 50.1 Glucose Level 117 mg/dL (70-99) Calcium Level 9.0 mg/dL (8.5-10.1) Phosphorus Level 3.9 mg/dL (2.6-4.7) Albumin 3.1 g/dL (3.4-5.0) Activated Clotting Time 188 sec (92-181) 221 sec (92-181) Test 09/13/19 14:37 09/14/19 04:00 Activated Clotting Time 192 sec (92-181) Sodium Level 137 mmol/L (136-145) Potassium Level 4.1 mmol/L (3.5-5.1) Chloride Level 103 mmol/L (98-107) Carbon Dioxide Level 27 mmol/L (21-32) Anion Gap 7 (6-14) Blood Urea Nitrogen 23 mg/dL (8-26) Creatinine 1.3 mg/dL (0.7-1.3) Estimated GFR (Cockcroft-Gault) 54.6 Glucose Level 134 mg/dL (70-99) Calcium Level 8.7 mg/dL (8.5-10.1) Laboratory Tests Test 09/13/19 14:37 09/14/19 04:00 Activated Clotting Time 192 sec (92-181) Sodium Level 137 mmol/L (136-145) Potassium Level 4.1 mmol/L (3.5-5.1) Chloride Level 103 mmol/L (98-107) Carbon Dioxide Level 27 mmol/L (21-32) Anion Gap 7 (6-14) Blood Urea Nitrogen 23 mg/dL (8-26) Creatinine 1.3 mg/dL (0.7-1.3) Estimated GFR (Cockcroft-Gault) 54.6 Glucose Level 134 mg/dL (70-99) Calcium Level 8.7 mg/dL (8.5-10.1) Allergies Allergies Coded Allergies Type Severity Reaction Last Updated Verified lisinopril Allergy Severe swelling 06/23/16 Yes shellfish derived Allergy Severe swelling 06/23/16 Yes strawberry Allergy Severe swelling 06/23/16 Yes tomato Allergy Severe swelling 06/23/16 Yes Disposition/Orders: D/C to Home Justicifation of Admission Dx: Justifications for Admission: Justification of Admission Dx: Yes CHF: Hemodynamic Instability ALYSSA SOLANO MD Sep 14, 2019 14:22
--- NOTE | 2019-09-14 14:24 | DISCH ---
DISCHARGE INSTRUCTIONS Condition on Discharge Condition on Discharge: Stable Activity After Discharge Activity Instructions for Disc: Activity as tolerated Bathing Instructions: No Tub Bath until see Lifting Instructions after Dis: No heavy lifting, No pulling or pushing Exercise Instruction after Dis: Progress as tolerated Driving Instructions after Dis: Do not drive Weight Bearing Status after Di: As tolerated Diet after Discharge Diet after Discharge: Cardiac Liquid Texture: Thin Liquid Wound Incision Care Wound/Incision Care: May get incision wet Checks after Discharge Checks after discharge: Check blood press - daily Contacting the DRJarad after DC Call your doctor for: If your condition worsens Treatment/Equipment after DC Adaptive Equipment Issued: None Warfarin Follow-Up Warfarin Follow UP: SEE CARDIOLOGY SOON DIRECTED, PCP ALYSSA LAI MD Sep 14, 2019 14:24
[2019-09-14 15:10] VITALS: BP 136/82
[2019-09-14] MEDS: ALLOPURINOL 300 MG TABLET. PO SCH (17:09)
[2019-09-14 17:10] VITALS: BP 136/82
--- NOTE | 2019-09-14 18:49 | NUR ---
Discharge Note: NALINI DUMONT Discharge instructions and discharge home medications reviewed with Patient and a copy given. All questions have been answered and understanding verbalized. The following instructions and handouts were given: post cath, follow up, medications, BP monitoring, heart monitor, diet, stent card, bleeding, kidney failure, follow up blood work, and take aspirin 81mg for 1 month and then stop. Discontinued lines and drains: IV removed, no lines present on discharge. Patient discharged to home, ambulated to his wifes private vehicle.
== END 2019-09-14 18:25 | disposition home or self-care (01) | DRG 215 ==
LOC: ER 12:24 → 6 SOUTH 14:05 → 2 SOUTH 17:45
PROVIDERS: ADMIT Internal Medicine; ATTEND Internal Medicine
PROC: 027135Z Dilation of Coronary Artery, Two Arteries with Two Drug-eluting Intraluminal Devices, Percutaneous Approach (ICD-10-PCS; principal; 2019-09-13)
PROC: 4A023N7 Measurement of Cardiac Sampling and Pressure, Left Heart, Percutaneous Approach (ICD-10-PCS; 2019-09-13)
PROC: 02HA3RJ Insertion of Short-term External Heart Assist System into Heart, Intraoperative, Percutaneous Approach (ICD-10-PCS; 2019-09-13)
PROC: X2C1361 Extirpation of Matter from Coronary Artery, Two Arteries using Orbital Atherectomy Technology, Percutaneous Approach, New Technology Group 1 (ICD-10-PCS; 2019-09-13)
PROC: B211YZZ Fluoroscopy of Multiple Coronary Arteries using Other Contrast (ICD-10-PCS; 2019-09-13)
PROC: 5A0221D Assistance with Cardiac Output using Impeller Pump, Continuous (ICD-10-PCS; 2019-09-13)
PROC: B241ZZ3 Ultrasonography of Multiple Coronary Arteries, Intravascular (ICD-10-PCS; 2019-09-13)
DX: I25.110 Atherosclerotic heart disease of native coronary artery with unstable angina pectoris (principal); I50.43 Acute on chronic combined systolic (congestive) and diastolic (congestive) heart failure; I13.0 Hypertensive heart and chronic kidney disease with heart failure and stage 1 through stage 4 chronic kidney disease, or unspecified chronic kidney disease; N18.4 Chronic kidney disease, stage 4 (severe); E78.5 Hyperlipidemia, unspecified; E11.22 Type 2 diabetes mellitus with diabetic chronic kidney disease; E66.9 Obesity, unspecified; E78.00 Pure hypercholesterolemia, unspecified; I44.0 Atrioventricular block, first degree; I49.8 Other specified cardiac arrhythmias; J44.9 Chronic obstructive pulmonary disease, unspecified; Z96.649 Presence of unspecified artificial hip joint; K21.9 Gastro-esophageal reflux disease without esophagitis; M10.9 Gout, unspecified; M19.90 Unspecified osteoarthritis, unspecified site; Z68.33 Body mass index [BMI] 33.0-33.9, adult; Z91.013 Allergy to seafood; Z91.018 Allergy to other foods; Z82.49 Family history of ischemic heart disease and other diseases of the circulatory system; Z86.73 Personal history of transient ischemic attack (TIA), and cerebral infarction without residual deficits; Z87.891 Personal history of nicotine dependence; Z95.5 Presence of coronary angioplasty implant and graft; Z91.048 Other nonmedicinal substance allergy status; I25.2 Old myocardial infarction; Z88.8 Allergy status to other drugs, medicaments and biological substances; G43.909 Migraine, unspecified, not intractable, without status migrainosus
CPT/HCPCS: 33991; 37252; 92933; 99285; G0269; 36415; 70450; 71045; 80048; 80053; 80069; 81001; 82553; 83735; 83880; 84484; 85025; 85347; 85610; 85730; 93005; 99152; 99153; C1724; C1725; C1753; C1760; C1769; C1874; C1887; C1892; C1894; J1644; J1650; J2250; J3010; J3490; J7030; Q9967; C1771; G0378

== ENCOUNTER → 2020-10-05 | Outpatient (CLI) | payer MEDICARE ==
[2020-08-06 15:06] VITALS: BP 148/81
[~2020-10-05] MED LIST changes: +AMLO-187 PO; -AMLO10TA8 PO; -ASPI-612 PO; +ASPI-886 PO; +CRESTOR40 MG PO; +DEXA4TAB63 PO; -ISOS60TA2 PO; +ISOS60TA55 PO; +RIVA10TA PO
--- NOTE | 2020-10-05 18:20 | RAD ---
MR#: [id number] Date of Study: 10/05/2020 Ordering Physician: MANSI HART, Referring Physician: MANSI HART, Tech: Zachary Chen MBA, RDMS, RVT, RDCS, RTR APPROVED REPORT Patient Location: OUT-PATIENT Laterality:Bilateral Indications CVA/TIA: Surgery/Intervention Endarterectomy: right Doppler Spectral Velocity Analysis Right Left pCCA 63/19 cm/spCCA 103/26 cm/s mCCA 64/18 cm/smCCA 96/24 cm/s dCCA 66/21 cm/sdCCA 97/26 cm/s Bulb 76/18 cm/sBulb 93/30 cm/s ECA 119/ cm/sECA 121/ cm/s pICA 89/28 cm/spICA 93/35 cm/s [place] 101/38 cm/smICA 181/60 cm/s dICA 78/33 cm/sdICA 168/47 cm/s Vert. 66/ cm/sVert. 49/ cm/s Subcl. 117/ cm/sSubcl. 114/ cm/s ICA/CCA 1.53ICA/CCA 1.76 Findings Grayscale images of the right carotid vasculature demonstrates mild diffuse atherosclerosis with over all 0 to less than 50% stenosis based on velocity criteria. Normal ICA to CCA ratios and antegrade v ertebral velocities are noted. On the left side there is likely a moderate 50 to 69% stenosis involving the mid internal carotid art josé with normal ICA to CCA ratios. The vertebral velocities are antegrade. Critical Notification Critical Value: No <Conclusion> 1. No significant right-sided carotid occlusive disease 2. Moderate left-sided carotid disease. Signed by : Mansi Hart, Electronically Approved : 10/05/2020 18:20:39
--- NOTE | 2020-10-05 18:43 | CARD ---
MR#: [id number] Date of Study: 10/05/2020 Ordering Physician: MANSI HART, Referring Physician: MANSI HART, Tech: Antolin Van [facility] APPROVED REPORT EXAM: Two-dimensional and M-mode echocardiogram with Doppler and color Doppler. Other Information Quality : FairHR: 77bpm Rhythm : NSRTechnically limited study due to body habitus and smoking. INDICATION Cardiac Disease: CAD Surgery/Intervention Pacemaker: RISK FACTORS Hypertension Obesity Hyperlipidemia Family History 2D DIMENSIONS Left Atrium(2D)3.7 (1.6-4.0cm)IVSd1.3 (0.7-1.1cm) Aortic Root(2D)3.2 (2.0-3.7cm)LVDd5.0 (3.9-5.9cm) LVOT Diameter2.3 (1.8-2.4cm)PWd1.2 (0.7-1.1cm) LVDs3.2 (2.5-4.0cm)FS (%) 36.4 % SV79.5 mlLVEF(%)65.8 (>50%) Aortic Valve AoV Peak Mookie.138.1cm/sAoV VTI24.7cm AO Peak GR.7.6mmHgLVOT Peak Mookie.135.9cm/s LVOT VTI 24.60cmAO Mean GR.4mmHg SHAKEEL (VMAX)2.68qm1KPF (VTI)4.02cm2 Mitral Valve MV E Iowrkxoo47.4cm/sMV DECEL [id number] MV A Ggtxfyti92.6cm/sMV [id number] E/A Ratio0.8MVA (PHT)2.33cm2 Pulmonary Valve PV Peak Sdqodbsi767.3cm/sPV Peak Grad.6mmHg Tricuspid Valve TR P. Slctrurx228pn/sTR Peak Gr.16mmHg Pulmonary Vein S1 Xtzgnlkz53.1cm/sD2 Mslndfbi70.8cm/s LEFT VENTRICLE The left ventricle is normal size. There is mild to moderate concentric left ventricular hypertrophy. The left ventricular systolic function is normal and the ejection fraction is within normal range. E F 55% There is normal LV segmental wall motion. Transmitral Doppler flow pattern is Grade I-abnormal relaxation pattern. RIGHT VENTRICLE The right ventricle is normal size. There is normal right ventricular wall thickness. The right ventr icular systolic function is normal. Pacemaker wire noted in RV ATRIA The left atrium is mildly dilated. The right atrium size is normal. The interatrial septum is intact with no evidence for an atrial septal defect or patent foramen ovale as noted on 2-D or Doppler imagi ng. AORTIC VALVE The aortic valve is moderately calcified. Doppler and Color Flow revealed no significant aortic regur gitation. There is no significant aortic valvular stenosis. There is no aortic valvular vegetation. MITRAL VALVE The mitral valve is normal in structure and function. There is no evidence of mitral valve prolapse. There is no mitral valve stenosis. Doppler and Color-flow revealed mild mitral regurgitation. TRICUSPID VALVE The tricuspid valve is normal in structure and function. Doppler and Color Flow revealed trace tricus pid regurgitation. There is no tricuspid valve prolapse or vegetation. There is no tricuspid valve st enosis. PULMONIC VALVE Doppler and Color Flow revealed no pulmonic valvular regurgitation. There is no pulmonic valvular rahel nosis. GREAT VESSELS The aortic root is normal in size. The ascending aorta is normal in size. The IVC is normal in size a nd collapses >50% with inspiration. PERICARDIAL EFFUSION There is no pleural effusion. There is no evidence of significant pericardial effusion. Critical Notification Critical Value: No <Conclusion> The left ventricular systolic function is normal and the ejection fraction is within normal range. EF 55% There is normal LV segmental wall motion. Pacemaker wire noted in RV Signed by : Mansi Hart, Electronically Approved : 10/05/2020 18:43:27
== END ==
LOC: ECHO 07:42
PROVIDERS: ATTEND Internal Medicine Cardiovascular Disease
DX: I08.0 Rheumatic disorders of both mitral and aortic valves (principal); I65.21 Occlusion and stenosis of right carotid artery; I63.9 Cerebral infarction, unspecified; I25.10 Atherosclerotic heart disease of native coronary artery without angina pectoris
CPT/HCPCS: 93306; 93880; C8929